=== PATIENT | female | born 1990 | race Two or more races ===

== ENCOUNTER 2019-04-05 09:28 | Emergency (ER) | payer MEDICAID ==
[2019-04-05] MEDS ORDERED: Sodium Chloride 0.9% 1,000 ML IV STA (09:57)
[2019-04-05] MEDS ORDERED: Metoclopramide 10 MG/2 ML SDV IVPUSH ONE (09:57)
[2019-04-05] MEDS ORDERED: Sodium Chloride 0.9% 10 ML Syringe FLUSH PRN (09:57)
[2019-04-05] MEDS ORDERED: diphenhydrAMINE 50 MG/ML SDV IVPUSH ONE (09:59)
[2019-04-05] MEDS ORDERED: Ketorolac 30 MG/ML SDV IVPUSH ONE (09:59)
[2019-04-05] MEDS ORDERED: FLU Vacc QS2019-20(6MOS+)/PF 60 MCG/0.5 ML SYRINGE IM ONE (10:00)
--- NOTE | 2019-04-05 10:32 | EDM.PDOC ---
ED HPI GENERAL MEDICAL PROBLEM - General Chief Complaint: Abdominal Pain Stated Complaint: VOMITNG/HEADACHE...HAS TYPE 1 DIABETES Time Seen by Provider: 04/05/19 09:43 Source of Information: Reports: Patient, Family History Limitations: Reports: No Limitations - History of Present Illness INITIAL COMMENTS - FREE TEXT/NARRATIVE: The patient presents with a headache, abdominal pain, nausea and vomiting. This started about 3 months ago. [place] doctor. She said he did a lower scan of her abdomen but not the upper part. She says every day she will wake up with a headache on both sides of her head. She also has abdominal pain daily. It is in the upper abdomen. She has nausea and vomiting daily and it may be once or a few times. She has not noticed any foods that may be causing problems. She is type I diabetic and her blood sugars have not been over 300. She has never had numbness or weakness with the headaches. She has no fever, chills, cough, congestion or runny nose. She has no ear pain or sore throat. She has no chest pain or shortness of breath. She does not think she is . She had a baby last year. She has lost about 20 pounds over the past few months. Onset: Gradual Duration: Week(s): Location: Reports: Head, Abdomen Quality: Reports: Sharp Severity: Moderate Improves with: Reports: None Worsens with: Reports: None Associated Symptoms: Reports: Headaches, Nausea/Vomiting. Denies: Chest Pain, Cough, Fever/Chills, Shortness of Breath Headache Pain Score (Numeric/FACES): 8 - Related Data Allergies Allergy/AdvReac Type Severity Reaction Status Date / Time No Known Allergies Allergy Verified 04/05/19 09:40 Home Meds: Home Meds Hydrocodone/Acetaminophen [Hydrocodon-Acetaminophen 5-325] 1 - 2 each PO Q6HR PRN #10 tablet 04/05/19 [Rx] Insulin Glargine,Hum.Rec.Anlog [Basaglar Kwikpen U-100] 27 units SQ BEDTIME [History] Insulin Lispro [Humalog] See Protocol SQ TID 04/05/19 [History] Metoclopramide HCl [Reglan] 10 mg PO Q6H PRN #30 tablet 04/05/19 [Rx] Sertraline [Zoloft] 100 mg PO DAILY 04/05/19 [History] Past Medical History Neurological History: Reports: Headaches, Chronic Endocrine/Metabolic History: Reports: Diabetes, Type I Do You Give Correction Boluses or Sliding Scale: Yes Patient/Family Able to Supply Written Copy of Sliding Scale: No Social & Family History - Family History Family Medical History: Noncontributory - Tobacco Use Smoking Status *Q: Never Smoker Second Hand Smoke Exposure: No ED ROS GENERAL - Review of Systems Review Of Systems: See Below Constitutional: Reports: No Symptoms HEENT: Reports: No Symptoms Respiratory: Reports: No Symptoms Cardiovascular: Reports: No Symptoms Endocrine: Reports: No Symptoms GI/Abdominal: Reports: Abdominal Pain, Nausea, Vomiting. Denies: Diarrhea : Reports: No Symptoms Musculoskeletal: Reports: No Symptoms Skin: Reports: No Symptoms Neurological: Reports: Headache. Denies: Numbness, Weakness ED EXAM, GI/ABD - Physical Exam Exam: See Below Exam Limited By: No Limitations General Appearance: Alert, No Apparent Distress Ears: Normal External Exam Nose: Normal Inspection Head: Atraumatic, Normocephalic Neck: Normal Inspection, Supple, Non-Tender Respiratory/Chest: No Respiratory Distress, Lungs Clear, Normal Breath Sounds Cardiovascular: Regular Rate, Rhythm, No Edema, No Murmur GI/Abdominal Exam: Soft, No Organomegaly, No Mass, Tender (Moderate generalized abdominal pain) Back Exam: Normal Inspection Extremities: Normal Inspection Course - Vital Signs Last Recorded V/S: Last Vital Signs Temp 97.1 F 04/05/19 09:40 Pulse 111 H 04/05/19 09:40 Resp 16 04/05/19 09:40 BP 119/91 H 04/05/19 09:40 Pulse Ox 99 04/05/19 09:40 - Orders/Labs/Meds Orders: Active Orders 24 hr Category Date Time Status Influenza Vaccine Charge [RC] .DISCHARGE Care 04/05/19 09:54 Active Peripheral IV Care [RC] . DIRECTED Care 04/05/19 09:57 Active UA W/MICROSCOPIC [URIN] Stat Lab 04/05/19 13:14 Results Sodium Chloride 0.9% [Saline Flush] Med 04/05/19 09:57 Active 10 ml FLUSH ASDIRECTED PRN ED Antiemetic Medication Reflex [OM.PC] Stat Oth 04/05/19 09:57 Ordered Peripheral IV Insertion Adult [OM.PC] Stat Ot 04/05/19 09:57 Ordered Medication Orders Sodium Chloride (Saline Flush) 10 ml FLUSH ASDIRECTED PRN PRN Reason: Keep Vein Open Last Admin: 04/05/19 10:16 Dose: 10 ml Labs: Laboratory Tests 04/05/19 04/05/19 04/05/19 Range/Units 10:00 10:00 10:00 WBC 3.36 L (3.98-10.04) K/mm3 RBC 4.21 (3.98-5.22) M/mm3 Hgb 13.9 (11.2-15.7) gm/dl Hct 41.0 (34.1-44.9) % MCV 97.4 H (79.4-94.8) fl MCH 33.0 H (25.6-32.2) pg MCHC 33.9 (32.2-35.5) g/dl RDW Std Deviation 50.1 H (36.4-46.3) fL Plt Count 275 (182-369) K/mm3 MPV 10.3 (9.4-12.3) fl Neut % (Auto) 51.8 (34.0-71.1) % Lymph % (Auto) 32.7 (19.3-51.7) % Davie % (Auto) 11.9 (4.7-12.5) % Eos % (Auto) 1.5 (0.7-5.8) Baso % (Auto) 1.8 H (0.1-1.2) % Neut # (Auto) 1.74 (1.56-6.13) K/mm3 Lymph # (Auto) 1.10 L (1.18-3.74) K/mm3 Davie # (Auto) 0.40 H (0.24-0.36) K/mm3 Eos # (Auto) 0.05 (0.04-0.36) K/mm3 Baso # (Auto) 0.06 (0.01-0.08) K/mm3 Puncture Site ABG pH (7.35-7.45) ABG pCO2 (35.0-45.0) mmHg ABG pO2 (80.0-100.0) mmHg ABG HCO3 (22.0-26.0) meq/L ABG O2 Saturation (96.0-97.0) % ABG Base Excess (-2-2.0) Graham Test O2 Delivery Device FiO2 (21.00-100.00) % Sodium 144 (136-145) mEq/L Potassium 3.2 L (3.5-5.1) mEq/L Chloride 106 (98-107) mEq/L Carbon Dioxide 26 (21-32) mEq/L Anion Gap 15.2 H (5-15) BUN 11 (7-18) mg/dL Creatinine 1.1 H (0.55-1.02) mg/dL Est Cr Clr Drug Dosing 55.67 mL/min Estimated GFR (MDRD) > 60 (>60) mL/min BUN/Creatinine Ratio 10.0 L (14-18) Glucose 72 L (74-106) mg/dL Serum Osmolality (280-300) mosm/kg Calcium 9.0 (8.5-10.1) mg/dL Total Bilirubin 0.3 (0.2-1.0) mg/dL AST 60 H (15-37) U/L ALT 41 (14-59) U/L Alkaline Phosphatase 136 H (46-116) U/L Total Protein 6.2 L (6.4-8.2) g/dl Albumin 3.0 L (3.4-5.0) g/dl Globulin 3.2 gm/dL Albumin/Globulin Ratio 0.9 L (1-2) Lipase 49 L (73-393) U/L HCG, Qual Negative (NEGATIVE) Urine Color (Yellow) Urine Appearance (Clear) Urine pH (5.0-8.0) Ur Specific [place] (1.005-1.030) Urine Protein (Negative) Urine Glucose (UA) (Negative) Urine Ketones (Negative) Urine Occult Blood (Negative) Urine Nitrite (Negative) Urine Bilirubin (Negative) Urine Urobilinogen (0.2-1.0) Ur Leukocyte Esterase (Negative) Ketones (0.0-0.3) mM 04/05/19 04/05/19 04/05/19 Range/Units 10:00 10:00 10:26 WBC (3.98-10.04) K/mm3 RBC (3.98-5.22) M/mm3 Hgb (11.2-15.7) gm/dl Hct (34.1-44.9) % MCV (79.4-94.8) fl MCH (25.6-32.2) pg MCHC (32.2-35.5) g/dl RDW Std Deviation (36.4-46.3) fL Plt Count (182-369) K/mm3 MPV (9.4-12.3) fl Neut % (Auto) (34.0-71.1) % Lymph % (Auto) (19.3-51.7) % Davie % (Auto) (4.7-12.5) % Eos % (Auto) (0.7-5.8) Baso % (Auto) (0.1-1.2) % Neut # (Auto) (1.56-6.13) K/mm3 Lymph # (Auto) (1.18-3.74) K/mm3 Davie # (Auto) (0.24-0.36) K/mm3 Eos # (Auto) (0.04-0.36) K/mm3 Baso # (Auto) (0.01-0.08) K/mm3 Puncture Site Lt radial ABG pH 7.41 (7.35-7.45) ABG pCO2 39.5 (35.0-45.0) mmHg ABG pO2 88.0 (80.0-100.0) mmHg ABG HCO3 24.3 (22.0-26.0) meq/L ABG O2 Saturation 97.7 H (96.0-97.0) % ABG Base Excess 0.2 (-2-2.0) Graham Test Positive O2 Delivery Device Room air FiO2 0.00 L (21.00-100.00) % Sodium (136-145) mEq/L Potassium (3.5-5.1) mEq/L Chloride (98-107) mEq/L Carbon Dioxide (21-32) mEq/L Anion Gap (5-15) BUN (7-18) mg/dL Creatinine (0.55-1.02) mg/dL Est Cr Clr Drug Dosing mL/min Estimated GFR (MDRD) (>60) mL/min BUN/Creatinine Ratio (14-18) Glucose (74-106) mg/dL Serum Osmolality 298 (280-300) mosm/kg Calcium (8.5-10.1) mg/dL Total Bilirubin (0.2-1.0) mg/dL AST (15-37) U/L ALT (14-59) U/L Alkaline Phosphatase (46-116) U/L Total Protein (6.4-8.2) g/dl Albumin (3.4-5.0) g/dl Globulin gm/dL Albumin/Globulin Ratio (1-2) Lipase (73-393) U/L HCG, Qual (NEGATIVE) Urine Color (Yellow) Urine Appearance (Clear) Urine pH (5.0-8.0) Ur Specific [place] (1.005-1.030) Urine Protein (Negative) Urine Glucose (UA) (Negative) Urine Ketones (Negative) Urine Occult Blood (Negative) Urine Nitrite (Negative) Urine Bilirubin (Negative) Urine Urobilinogen (0.2-1.0) Ur Leukocyte Esterase (Negative) Ketones 1.1 (0.0-0.3) mM 04/05/ Range/Units 13:14 WBC (3.98-10.04) K/mm3 RBC (3.98-5.22) M/mm3 Hgb (11.2-15.7) gm/dl Hct (34.1-44.9) % MCV (79.4-94.8) fl MCH (25.6-32.2) pg MCHC (32.2-35.5) g/dl RDW Std Deviation (36.4-46.3) fL Plt Count (182-369) K/mm3 MPV (9.4-12.3) fl Neut % (Auto) (34.0-71.1) % Lymph % (Auto) (19.3-51.7) % Davie % (Auto) (4.7-12.5) % Eos % (Auto) (0.7-5.8) Baso % (Auto) (0.1-1.2) % Neut # (Auto) (1.56-6.13) K/mm3 Lymph # (Auto) (1.18-3.74) K/mm3 Davie # (Auto) (0.24-0.36) K/mm3 Eos # (Auto) (0.04-0.36) K/mm3 Baso # (Auto) (0.01-0.08) K/mm3 Puncture Site ABG pH (7.35-7.45) ABG pCO2 (35.0-45.0) mmHg ABG pO2 (80.0-100.0) mmHg ABG HCO3 (22.0-26.0) meq/L ABG O2 Saturation (96.0-97.0) % ABG Base Excess (-2-2.0) Grahma Test O2 Delivery Device FiO2 (21.00-100.00) % Sodium (136-145) mEq/L Potassium (3.5-5.1) mEq/L Chloride (98-107) mEq/L Carbon Dioxide (21-32) mEq/L Anion Gap (5-15) BUN (7-18) mg/dL Creatinine (0.55-1.02) mg/dL Est Cr Clr Drug Dosing mL/min Estimated GFR (MDRD) (>60) mL/min BUN/Creatinine Ratio (14-18) Glucose (74-106) mg/dL Serum Osmolality (280-300) mosm/kg Calcium (8.5-10.1) mg/dL Total Bilirubin (0.2-1.0) mg/dL AST (15-37) U/L ALT (14-59) U/L Alkaline Phosphatase (46-116) U/L Total Protein (6.4-8.2) g/dl Albumin (3.4-5.0) g/dl Globulin gm/dL Albumin/Globulin Ratio (1-2) Lipase (73-393) U/L HCG, Qual (NEGATIVE) Urine Color Yellow (Yellow) Urine Appearance Cloudy H (Clear) Urine pH 6.5 (5.0-8.0) Ur Specific [place] 1.015 (1.005-1.030) Urine Protein 2+ H (Negative) Urine Glucose (UA) Negative (Negative) Urine Ketones 1+ H (Negative) Urine Occult Blood Negative (Negative) Urine Nitrite Negative (Negative) Urine Bilirubin 2+ H (Negative) Urine Urobilinogen 0.2 (0.2-1.0) Ur Leukocyte Esterase Negative (Negative) Ketones (0.0-0.3) mM Meds: Medications Generic Name Dose Route Start Last Admin Trade Name Freq PRN Reason Stop Dose Admin Sodium Chloride 10 ml 04/05/19 09:57 04/05/19 10:16 Saline Flush FLUSH 10 ml ASDIRECTED PRN Administration Keep Vein Open Discontinued Medications Generic Name Dose Route Start Last Admin Trade Name Gonzalo PRN Reason Stop Dose Admin Diatrizoate Meglum/Diatrizoate Sod 90 ml 04/05/19 11:50 Gastrografin 37% PO 04/05/19 11:51 ONETIME ONE Diphenhydramine HCl 50 mg 04/05/19 09:59 04/05/19 10:17 Benadryl IVPUSH 04/05/19 10:00 50 mg ONETIME ONE Administration Sodium Chloride 1,000 mls @ 1,000 mls/hr 04/05/19 09:57 04/05/19 10:13 Normal Saline IV 04/05/19 10:56 1,000 mls/hr .BOLUS STA Administration Influenza Virus Vaccine 1 each 04/05/19 09:54 Pharmacy To Dose - Influenza Vaccine IM 04/05/19 09:55 ONETIME ONE Influenza Virus Vaccine 60 mcg 04/05/19 10:00 Fluzone Quad [id number] Syringe IM 04/05/19 10:01 .ONCE ONE Iopamidol 100 ml 04/05/19 11:50 04/05/19 12:10 Isovue-300 (61%) IVPUSH 04/05/19 11:51 100 ml ONETIME ONE Administration Ketorolac Tromethamine 30 mg 04/05/19 09:59 04/05/19 10:21 Toradol IVPUSH 04/05/19 10:00 30 mg ONETIME ONE Administration Metoclopramide HCl 10 mg 04/05/19 09:57 04/05/19 10:14 Reglan IVPUSH 04/05/19 09:58 10 mg ONETIME ONE Administration Ondansetron HCl 4 mg 04/05/19 11:20 04/05/19 11:41 Zofran IVPUSH 04/05/19 11:21 4 mg ONETIME ONE Administration - Re-Assessments/Exams Free Text/Narrative Re-Assessment/Exam: 04/05/19 10:37 I ordered an IV NS 1L bolus, reglan 10mg IV, toradol 30mg IV, benadryl 50mg IV, labs, UA, CT of her head, abdomen and pelvis. 04/05/19 12:12 Her WBC was low at 3.36. Her pH was normal at 7.41. Her K was low at 3.2. Her anion gap was slightly elevated at 15.2. Her creatinine was elevated at 1.1. Her glucose was a little low at 72. Her serum osmolality is normal at 298. Her AST is elevated at 66. Her Alk Phos is elevated at 136. Her lipase is normal. Her HCG is negative. Her ketones were slightly elevated at 1.1. I am waiting for the scans now. Her headache is better. 04/05/19 13:[address] of her head looks good. The CT of her abdomen and pelvis shows nothing acute. The headache came back. I will give her some dilaudid before she goes. I am concerned this could be gastroperesis from the diabetes. She has tried some meds for this but she does not think it was reglan. I will try some reglan and I will have her follow up with Dr Burgess. Departure - Departure Time of Disposition: 13:35 Disposition: Home, Self-Care 01 Condition: Good Clinical Impression: Abdominal pain Qualifiers: Abdominal location: generalized Qualified Code(s): R10.84 - Generalized abdominal pain Headache Qualifiers: Headache type: unspecified Headache chronicity pattern: acute headache Intractability: not intractable Qualified Code(s): R51 - Headache - Discharge Information *PRESCRIPTION DRUG MONITORING PROGRAM REVIEWED*: No *COPY OF PRESCRIPTION DRUG MONITORING REPORT IN PATIENT [place]: No Prescriptions: Hydrocodone/Acetaminophen [Hydrocodon-Acetaminophen 5-325] 1 - 2 each PO Q6HR PRN #10 tablet PRN Reason: Pain Metoclopramide HCl [Reglan] 10 mg PO Q6H PRN #30 tablet PRN Reason: Nausea Referrals: PCP,None [Primary Care Provider] - Alli Burgess MD [Physician] - 1 Week Forms: ED Department Discharge Additional Instructions: Drink plenty of fluids. Take reglan every 6 hours as needed for the pain and nausea. Take the hydrocodone as needed for pain. Please return if you are worse. Sepsis Event Note - Evaluation Sepsis Screening Result: No Definite Risk - Focused Exam Vital Signs: Vital Signs Temp Pulse Resp BP Pulse Ox 04/05/19 09:40 97.1 F 111 H 16 119/91 H 99 Date Exam was Performed: 04/05/19 Time Exam was Performed: 13:32 - My Orders Last 24 Hours: My Active Orders 04/05/19 09:54 Influenza Vaccine Charge [RC] .DISCHARGE 04/05/19 09:57 Peripheral IV Care [RC] . DIRECTED Sodium Chloride 0.9% [Saline Flush] 10 ml FLUSH ASDIRECTED PRN ED Antiemetic Medication Reflex [OM.PC] Stat Peripheral IV Insertion Adult [OM.PC] Stat 04/05/19 13:14 UA W/MICROSCOPIC [URIN] Stat - Assessment/Plan Last 24 Hours: My Active Orders 04/05/19 09:54 Influenza Vaccine Charge [RC] .DISCHARGE 04/05/19 09:57 Peripheral IV Care [RC] . DIRECTED Sodium Chloride 0.9% [Saline Flush] 10 ml FLUSH ASDIRECTED PRN ED Antiemetic Medication Reflex [OM.PC] Stat Peripheral IV Insertion Adult [OM.PC] Stat 04/05/19 13:14 UA W/MICROSCOPIC [URIN] Stat
[2019-04-05] MEDS ORDERED: Ondansetron 4 MG/2 ML SDV IVPUSH ONE (11:20)
[2019-04-05] MEDS ORDERED: Iopamidol 612 MG/ML 100 ML Bottle IVPUSH ONE (11:50)
[2019-04-05] MEDS ORDERED: Diatrizoate Meglumine/Diatrizoate Sodium 37% 120 ML Bottle PO ONE (11:50)
--- NOTE | 2019-04-05 12:57 | CT ---
Head CT Technique: Multiple axial sections through the brain were obtained. Intravenous contrast was not utilized. Comparison: No prior intracranial imaging is available. Findings: Ventricles along with basal cisterns and sulci over the convexities appear within normal limits for the patient's age. No abnormal parenchymal densities are seen. No evidence of intracranial hemorrhage. No midline shift or mass effect is identified. Bone window settings were reviewed. No acute calvarial abnormality is appreciated. Mastoid sinuses are clear. Visualized paranasal sinuses show nothing acute. Impression: 1. Nothing acute is appreciated on noncontrast head CT exam. Diagnostic code #1 This report was dictated in [place] Standard Time
--- NOTE | 2019-04-05 13:01 | CT ---
CT abdomen and pelvis Technique: Multiple axial sections were obtained from above the dome of the diaphragm inferiorly through the pubic symphysis. Intravenous contrast was utilized. Oral contrast was given. Incomplete bowel opacification is noted. Comparison: No prior abdominal imaging is available. Findings: Multiple small nodules are seen within the right lung base. These measure less than 5 mm. These nodules show no calcifications. Liver shows no focal parenchymal abnormality. Gallbladder contains no calcified gallstones. Spleen appears within normal limits. Adrenal glands show no discrete nodule. Kidneys show symmetric contrast enhancement without hydronephrosis or mass. Pancreas is within normal limits. Aorta shows no aneurysm. No retroperitoneal adenopathy or mesenteric abnormalities are seen. No pelvic mass or adenopathy is seen. No free fluid or inflammatory change is identified. Mild increased stool is noted throughout the colon. Appendix is not visualized with certainty. Delayed images shows a small amount of contrast within the bladder. Bone window settings were reviewed which appear within normal limits for the patient's age. Impression: 1. Mild increased stool throughout the colon. 2. No additional abnormality is appreciated on CT study of the abdomen and pelvis. No acute abnormality is appreciated. Diagnostic code #2 This report was dictated in [place] Standard Time
[2019-04-05] MEDS ORDERED: HYDROmorphone 0.5 MG/0.5 ML Syringe IVPUSH ONE (13:32)
== END 2019-04-05 14:04 | disposition home or self-care (01) ==
LOC: JD.ED 09:28
DX: R10.84 Generalized abdominal pain (principal); R51 Headache; E10.9 Type 1 diabetes mellitus without complications; Z79.4 Long term (current) use of insulin; Z23 Encounter for immunization
CPT/HCPCS: 36415; 36600; 70450; 74177; 80053; 81001; 82009; 82803; 83690; 83930; 84703; 85025; 90471; 90686; 96361; 96374; 96375; 99284; J1170; J1200; J1885; J2405; J2765; J7030; Q9963; Q9967; G0008

== ENCOUNTER 2019-08-04 11:38 | Inpatient (IN) | payer BC, MEDICAID ==
[2019-08-04] MEDS ORDERED: Sodium Chloride 0.9% 2,000 ML IV STA (12:00)
[2019-08-04] MEDS ORDERED: Ondansetron 4 MG/2 ML SDV IVPUSH ONE (12:00)
[2019-08-04] MEDS: Sodium Chloride 0.9% 10 ML Syringe FLUSH PRN ×2 (12:18→12:19)
--- NOTE | 2019-08-04 12:49 | EDM.PDOC ---
ED HPI GENERAL MEDICAL PROBLEM - General Chief Complaint: Diabetic Complaint Stated Complaint: GLUCOS OVER 600 AND NAUSEA Time Seen by Provider: 08/04/19 11:52 Source of Information: Reports: Patient, Family History Limitations: Reports: Altered Mental Status - History of Present Illness INITIAL COMMENTS - FREE TEXT/NARRATIVE: The patient presents with hyperglycemia and confusion. She was brought in by her . He says for the past month she had some abdominal pain, nausea and vomiting. Her sugars have been running a little high the past few days. She was nauseated today and did not eat much and then she was confused and he checked her sugar and it was over 600. He gave her 12 units of regular insulin. She is confused and yelling. She looks very dry with dry mucous membranes. She is also breathing hard and fast. Onset: Gradual Duration: Day(s): Location: Reports: Abdomen Quality: Reports: Ache Severity: Moderate Improves with: Reports: None Worsens with: Reports: None Associated Symptoms: Reports: Nausea/Vomiting, Shortness of Breath. Denies: Chest Pain, Cough, Fever/Chills, Headaches - Related Data Allergies Allergy/AdvReac Type Severity Reaction Status Date / Time No Known Allergies Allergy Verified 08/04/19 12:17 Home Meds: Home Meds Hydrocodone/Acetaminophen [Hydrocodon-Acetaminophen 5-325] 1 - 2 each PO Q6HR PRN #10 tablet 04/05/19 [Rx] Insulin Glargine,Hum.Rec.Anlog [Basaglar Kwikpen U-100] 27 units SQ BEDTIME [History] Insulin Lispro [Humalog] See Protocol SQ TID 04/05/19 [History] Metoclopramide HCl [Reglan] 10 mg PO Q6H PRN #30 tablet 04/05/19 [Rx] Sertraline [Zoloft] 100 mg PO DAILY 04/05/19 [History] Past Medical History Neurological History: Reports: Headaches, Chronic Endocrine/Metabolic History: Reports: Diabetes, Type I Social & Family History - Family History Family Medical History: Noncontributory ED ROS GENERAL - Review of Systems Review Of Systems: See Below Constitutional: Reports: No Symptoms HEENT: Reports: No Symptoms Respiratory: Reports: No Symptoms Cardiovascular: Reports: No Symptoms Endocrine: Reports: No Symptoms GI/Abdominal: Reports: No Symptoms : Reports: No Symptoms Musculoskeletal: Reports: No Symptoms Skin: Reports: No Symptoms ED EXAM GENERAL NO PERIP PULSE - Physical Exam Exam: See Below Exam Limited By: No Limitations General Appearance: No Apparent Distress, Lethargic Ears: Normal External Exam Nose: Normal Inspection Throat/Mouth: Other (Dry mucus membranes) Head: Atraumatic, Normocephalic Neck: Normal Inspection, Supple, Non-Tender Respiratory/Chest: No Respiratory Distress, Lungs Clear, Normal Breath Sounds Cardiovascular: No Edema, No Murmur, Tachycardia GI/Abdominal: Soft, Non-Tender, No Organomegaly, No Mass Back Exam: Normal Inspection Extremities: Normal Inspection Course - Vital Signs Last Recorded V/S: Last Vital Signs Temp 97.0 F 08/04/19 12:47 Pulse 144 H 08/04/19 12:47 Resp 24 H 08/04/19 12:47 BP 130/99 H 08/04/19 12:47 Pulse Ox 100 08/04/19 12:47 - Orders/Labs/Meds Orders: Active Orders 24 hr Category Date Time Status Insert Barraza Catheter [Insert Urinary Catheter] [OM.PC] Care 08/04/19 12:55 Ordered Q24H Peripheral IV Care [RC] . DIRECTED Care 08/04/19 12:00 Active Urinary Catheter Assessment [RC] ASDIRECTED Care 08/04/19 12:55 Active Insulin Regular, Human [HumuLIN R] 100 unit Med 08/04/19 14:15 Active Sodium Chloride 0.9% [Normal Saline] 99 ml IV TITRATE Sodium Chloride 0.9% [Saline Flush] Med 08/04/19 12:00 Active 10 ml FLUSH ASDIRECTED PRN ED Antiemetic Medication Reflex [OM.PC] Stat Oth 08/04/19 12:01 Ordered Peripheral IV Insertion Adult [OM.PC] Stat Oth 08/04/19 12:00 Ordered Medication Orders Insulin Human Regular 100 unit (/ Sodium Chloride) 100 mls @ 4.08 mls/hr IV TITRATE STEPHANIE; Protocol Sodium Chloride (Saline Flush) 10 ml FLUSH ASDIRECTED PRN PRN Reason: Keep Vein Open Last Admin: 08/04/19 12:19 Dose: 10 ml Admin: 08/04/19 12:18 Dose: 10 ml Labs: Laboratory Tests 04/21/20 04/21/20 04/21/20 Range/Units 12:04 12:10 12:10 WBC 8.81 (3.98-10.04) K/mm3 RBC 3.81 L (3.98-5.22) M/mm3 Hgb 12.7 (11.2-15.7) gm/dl Hct 40.7 (34.1-44.9) % MCV 106.8 H D (79.4-94.8) fl MCH 33.3 H (25.6-32.2) pg MCHC 31.2 L (32.2-35.5) g/dl RDW Std Deviation 49.3 H (36.4-46.3) fL Plt Count 447 H D (182-369) K/mm3 MPV 10.9 (9.4-12.3) fl Neut % (Auto) 73.4 H (34.0-71.1) % Lymph % (Auto) 21.2 (19.3-51.7) % [place] % (Auto) 4.3 L (4.7-12.5) % Eos % (Auto) 0.1 L (0.7-5.8) Baso % (Auto) 0.3 (0.1-1.2) % Neut # (Auto) 6.46 H (1.56-6.13) K/mm3 Lymph # (Auto) 1.87 (1.18-3.74) K/mm3 [place] # (Auto) 0.38 H (0.24-0.36) K/mm3 Eos # (Auto) 0.01 L (0.04-0.36) K/mm3 Baso # (Auto) 0.03 (0.01-0.08) K/mm3 Manual Slide Review Abnormal smear Puncture Site Rt brachial ABG pH 7.00 L* (7.35-7.45) ABG pCO2 9.3 L* (35.0-45.0) mmHg ABG pO2 125.0 H (80.0-100.0) mmHg ABG HCO3 2.2 L (22.0-26.0) meq/L ABG O2 Saturation 97.4 H (96.0-97.0) % ABG Base Excess -29.1 L (-2-2.0) Graham Test Positive O2 Delivery Device Room air FiO2 0.00 L (21.00-100.00) % Sodium 143 (136-145) mEq/L Potassium 4.5 (3.5-5.1) mEq/L Chloride 98 (98-107) mEq/L Carbon Dioxide < 5 L* D (21-32) mEq/L Anion Gap TNP BUN 24 H (7-18) mg/dL Creatinine 1.4 H (0.55-1.02) mg/dL Est Cr Clr Drug Dosing 38.90 mL/min Estimated GFR (MDRD) 45 (>60) mL/min BUN/Creatinine Ratio 17.1 (14-18) Glucose 870 H* (74-106) mg/dL Serum Osmolality 370 H (280-300) mosm/kg Calcium 9.2 (8.5-10.1) mg/dL Magnesium 2.3 (1.8-2.4) mg/dl Total Bilirubin 0.8 (0.2-1.0) mg/dL AST 250 H (15-37) U/L ALT 190 H (14-59) U/L Alkaline Phosphatase 286 H (46-116) U/L Total Protein 6.7 (6.4-8.2) g/dl Albumin 3.5 (3.4-5.0) g/dl Globulin 3.2 gm/dL Albumin/Globulin Ratio 1.1 (1-2) Lipase 52 L (73-393) U/L HCG, Qual (NEGATIVE) Urine Color (Yellow) Urine Appearance (Clear) Urine pH (5.0-8.0) Ur Specific [place] (1.005-1.030) Urine Protein (Negative) Urine Glucose (UA) (Negative) Urine Ketones (Negative) Urine Occult Blood (Negative) Urine Nitrite (Negative) Urine Bilirubin (Negative) Urine Urobilinogen (0.2-1.0) Ur Leukocyte Esterase (Negative) Urine RBC (0-5) /hpf Urine WBC (0-5) /hpf Ur Squamous Epith Cells (0-5) /hpf Urine Bacteria (FEW) /hpf Urine Mucus (FEW) /hpf Urine Opiates Screen (XFEYVH=506) Ur Buprenorphine Scrn (CUTOFF=10) Ur Oxycodone Screen (ZRH9YR=583) Urine Methadone Screen (VPBIOS=829) Ur Propoxyphene Screen (PVRURE=646) Ur Barbiturates Screen (ZAIPCZ=455) Ur Tricyclics Screen (MIUITD=800) Ur Phencyclidine Scrn (CUTOFF=25) Ur Amphetamine Screen (LPGOKH=365) U Methamphetamines Scrn (BOHSQB=738) U Benzodiazepines Scrn (LREPDU=844) U Cocaine Metab Screen (XZXPOI=498) U Marijuana (THC) Screen (CUTOFF=50) Ketones (0.0-0.3) mM 08/04/19 08/04/19 08/04/19 Range/Units 12:10 12:10 13:00 WBC (3.98-10.04) K/mm3 RBC (3.98-5.22) M/mm3 Hgb (11.2-15.7) gm/dl Hct (34.1-44.9) % MCV (79.4-94.8) fl MCH (25.6-32.2) pg MCHC (32.2-35.5) g/dl RDW Std Deviation (36.4-46.3) fL Plt Count (182-369) K/mm3 MPV (9.4-12.3) fl Neut % (Auto) (34.0-71.1) % Lymph % (Auto) (19.3-51.7) % [place] % (Auto) (4.7-12.5) % Eos % (Auto) (0.7-5.8) Baso % (Auto) (0.1-1.2) % Neut # (Auto) (1.56-6.13) K/mm3 Lymph # (Auto) (1.18-3.74) K/mm3 [place] # (Auto) (0.24-0.36) K/mm3 Eos # (Auto) (0.04-0.36) K/mm3 Baso # (Auto) (0.01-0.08) K/mm3 Manual Slide Review Puncture Site ABG pH (7.35-7.45) ABG pCO2 (35.0-45.0) mmHg ABG pO2 (80.0-100.0) mmHg ABG HCO3 (22.0-26.0) meq/L ABG O2 Saturation (96.0-97.0) % ABG Base Excess (-2-2.0) Graham Test O2 Delivery Device FiO2 (21.00-100.00) % Sodium (136-145) mEq/L Potassium (3.5-5.1) mEq/L Chloride (98-107) mEq/L Carbon Dioxide (21-32) mEq/L Anion Gap BUN (7-18) mg/dL Creatinine (0.55-1.02) mg/dL Est Cr Clr Drug Dosing mL/min Estimated GFR (MDRD) (>60) mL/min BUN/Creatinine Ratio (14-18) Glucose (74-106) mg/dL Serum Osmolality (280-300) mosm/kg Calcium (8.5-10.1) mg/dL Magnesium (1.8-2.4) mg/dl Total Bilirubin (0.2-1.0) mg/dL AST (15-37) U/L ALT (14-59) U/L Alkaline Phosphatase (46-116) U/L Total Protein (6.4-8.2) g/dl Albumin (3.4-5.0) g/dl Globulin gm/dL Albumin/Globulin Ratio (1-2) Lipase (73-393) U/L HCG, Qual Negative (NEGATIVE) Urine Color Yellow (Yellow) Urine Appearance Clear (Clear) Urine pH 5.0 (5.0-8.0) Ur Specific [place] 1.020 (1.005-1.030) Urine Protein Trace H (Negative) Urine Glucose (UA) 2+ H (Negative) Urine Ketones 4+ H (Negative) Urine Occult Blood 1+ H (Negative) Urine Nitrite Negative (Negative) Urine Bilirubin Negative (Negative) Urine Urobilinogen 0.2 (0.2-1.0) Ur Leukocyte Esterase Negative (Negative) Urine RBC 0-5 (0-5) /hpf Urine WBC Not seen (0-5) /hpf Ur Squamous Epith Cells Not seen (0-5) /hpf Urine Bacteria Not seen (FEW) /hpf Urine Mucus Not seen (FEW) /hpf Urine Opiates Screen (FVYFPS=328) Ur Buprenorphine Scrn (CUTOFF=10) Ur Oxycodone Screen (ZFU5LR=007) Urine Methadone Screen (ABEODN=111) Ur Propoxyphene Screen (OZTVUP=920) Ur Barbiturates Screen (DVUJQS=461) Ur Tricyclics Screen (ZCFWBS=945) Ur Phencyclidine Scrn (CUTOFF=25) Ur Amphetamine Screen (TAMCHH=770) U Methamphetamines Scrn (DZMPEC=564) U Benzodiazepines Scrn (WXOYPE=321) U Cocaine Metab Screen (JEATWR=685) U Marijuana (THC) Screen (CUTOFF=50) Ketones 17.0 (0.0-0.3) mM 08/04/19 Range/Units 13:00 WBC (3.98-10.04) K/mm3 RBC (3.98-5.22) M/mm3 Hgb (11.2-15.7) gm/dl Hct (34.1-44.9) % MCV (79.4-94.8) fl MCH (25.6-32.2) pg MCHC (32.2-35.5) g/dl RDW Std Deviation (36.4-46.3) fL Plt Count (182-369) K/mm3 MPV (9.4-12.3) fl Neut % (Auto) (34.0-71.1) % Lymph % (Auto) (19.3-51.7) % [place] % (Auto) (4.7-12.5) % Eos % (Auto) (0.7-5.8) Baso % (Auto) (0.1-1.2) % Neut # (Auto) (1.56-6.13) K/mm3 Lymph # (Auto) (1.18-3.74) K/mm3 [place] # (Auto) (0.24-0.36) K/mm3 Eos # (Auto) (0.04-0.36) K/mm3 Baso # (Auto) (0.01-0.08) K/mm3 Manual Slide Review Puncture Site ABG pH (7.35-7.45) ABG pCO2 (35.0-45.0) mmHg ABG pO2 (80.0-100.0) mmHg ABG HCO3 (22.0-26.0) meq/L ABG O2 Saturation (96.0-97.0) % ABG Base Excess (-2-2.0) Graham Test O2 Delivery Device FiO2 (21.00-100.00) % Sodium (136-145) mEq/L Potassium (3.5-5.1) mEq/L Chloride (98-107) mEq/L Carbon Dioxide (21-32) mEq/L Anion Gap BUN (7-18) mg/dL Creatinine (0.55-1.02) mg/dL Est Cr Clr Drug Dosing mL/min Estimated GFR (MDRD) (>60) mL/min BUN/Creatinine Ratio (14-18) Glucose (74-106) mg/dL Serum Osmolality (280-300) mosm/kg Calcium (8.5-10.1) mg/dL Magnesium (1.8-2.4) mg/dl Total Bilirubin (0.2-1.0) mg/dL AST (15-37) U/L ALT (14-59) U/L Alkaline Phosphatase (46-116) U/L Total Protein (6.4-8.2) g/dl Albumin (3.4-5.0) g/dl Globulin gm/dL Albumin/Globulin Ratio (1-2) Lipase (73-393) U/L HCG, Qual (NEGATIVE) Urine Color (Yellow) Urine Appearance (Clear) Urine pH (5.0-8.0) Ur Specific [place] (1.005-1.030) Urine Protein (Negative) Urine Glucose (UA) (Negative) Urine Ketones (Negative) Urine Occult Blood (Negative) Urine Nitrite (Negative) Urine Bilirubin (Negative) Urine Urobilinogen (0.2-1.0) Ur Leukocyte Esterase (Negative) Urine RBC (0-5) /hpf Urine WBC (0-5) /hpf Ur Squamous Epith Cells (0-5) /hpf Urine Bacteria (FEW) /hpf Urine Mucus (FEW) /hpf Urine Opiates Screen Negative (YBRAHP=665) Ur Buprenorphine Scrn Negative (CUTOFF=10) Ur Oxycodone Screen Negative (HXS4CW=851) Urine Methadone Screen Negative (BSEORY=003) Ur Propoxyphene Screen Negative (VPYVJV=739) Ur Barbiturates Screen Negative (XFAVEI=032) Ur Tricyclics Screen Negative (OBWIKT=626) Ur Phencyclidine Scrn Negative (CUTOFF=25) Ur Amphetamine Screen Negative (NNHOBU=308) U Methamphetamines Scrn Negative (TBBMVS=200) U Benzodiazepines Scrn Negative (DAUCDZ=335) U Cocaine Metab Screen Negative (WFLNUL=606) U Marijuana (THC) Screen Negative (CUTOFF=50) Ketones (0.0-0.3) mM Meds: Medications Generic Name Dose Route Start Last Admin Trade Name Freq PRN Reason Stop Dose Admin Insulin Human Regular 100 unit 100 mls @ 4.08 mls/hr 08/04/19 14:15 / Sodium Chloride IV TITRATE STEPHANIE Protocol 0.1 UNITS/KG/HR Sodium Chloride 10 ml 08/04/19 12:00 08/04/19 12:19 Saline Flush FLUSH 10 ml ASDIRECTED PRN Administration Keep Vein Open Discontinued Medications Generic Name Dose Route Start Last Admin Trade Name Gonzalo PRN Reason Stop Dose Admin Sodium Chloride 2,000 mls @ 1,000 mls/hr 08/04/19 12:00 08/04/19 12:15 Normal Saline IV 08/04/19 13:59 1,000 mls/hr .BOLUS STA Administration Ondansetron HCl 4 mg 08/04/19 12:00 08/04/19 12:14 Zofran IVPUSH 08/04/19 12:01 4 mg ONETIME ONE Administration - Re-Assessments/Exams Free Text/Narrative Re-Assessment/Exam: 08/04/19 12:49 I ordered an IV NS 2L bolus, zofran 4mg IV, labs, and ABG. 08/04/19 14:11 Her WBC and Hgb are normal. Her platelets are 447. Her pH is 7. Her pCO2 is low at 9.3. Her CO2 is low at <5. Her K is normal at 4.5. Her creatinine is slightly elevated at 1.4. Her glucose was very high at 870. Her serum osmolality is high at 370. Her AST is elevated at 250. Her ALT is elevated at 190. Her alk phos is elevated at 286. Her lipase is low at 52. Her HCG is negative. Her UA has ketones and glucose. Her UDS was negative. Her Ketones were 17. She is in DKA. He second liter is almost in. I have ordered an insulin drip at 0.1units/kg/hr. I talked with Dr Meek and he agreed to the admission. Departure - Departure Time of Disposition: 14:15 Disposition: Admitted As Inpatient 68 Condition: Serious Clinical Impression: Confusion, Dehydration DKA (diabetic ketoacidoses) Qualifiers: Diabetes mellitus type: type 1 Diabetes mellitus complication detail: without coma Qualified Code(s): E10.10 - Type 1 diabetes mellitus with ketoacidosis without coma - Discharge Information Referrals: Tari Lazo PA-C [Primary Care Provider] - Forms: ED Department Discharge Sepsis Event Note - Evaluation Sepsis Screening Result: No Definite Risk - Focused Exam Vital Signs: Vital Signs Temp Pulse Resp BP Pulse Ox 08/04/19 12:47 97.0 F 144 H 24 H 130/99 H 100 08/04/19 11:59 97.9 F 144 H 24 H 136/91 H 99 Date Exam was Performed: 08/04/19 Time Exam was Performed: 14:11 - My Orders Last 24 Hours: My Active Orders 08/04/19 12:00 Peripheral IV Care [RC] . DIRECTED Sodium Chloride 0.9% [Saline Flush] 10 ml FLUSH ASDIRECTED PRN Peripheral IV Insertion Adult [OM.PC] Stat 08/04/19 12:01 ED Antiemetic Medication Reflex [OM.PC] Stat 08/04/19 12:55 Insert Barraza Catheter [Insert Urinary Catheter] [OM.PC] Q24H Urinary Catheter Assessment [RC] ASDIRECTED 08/04/19 14:15 Insulin Regular, Human [HumuLIN R] 100 unit Sodium Chloride 0.9% [Normal Saline] 99 ml IV TITRATE - Assessment/Plan Last 24 Hours: My Active Orders 08/04/19 12:00 Peripheral IV Care [RC] . DIRECTED Sodium Chloride 0.9% [Saline Flush] 10 ml FLUSH ASDIRECTED PRN Peripheral IV Insertion Adult [OM.PC] Stat 08/04/19 12:01 ED Antiemetic Medication Reflex [OM.PC] Stat 08/04/19 12:55 Insert Barraza Catheter [Insert Urinary Catheter] [OM.PC] Q24H Urinary Catheter Assessment [RC] ASDIRECTED 08/04/19 14:15 Insulin Regular, Human [HumuLIN R] 100 unit Sodium Chloride 0.9% [Normal Saline] 99 ml IV TITRATE
[2019-08-04] MEDS ORDERED: Lactated Ringers 1,000 ML IV ONE (14:53)
[2019-08-04] MEDS ORDERED: Sodium Chloride 0.45% with KCl 1,000 ML IV SCH (16:00)
--- NOTE | 2019-08-04 17:06 | PCM.HP.2 ---
H&P History of Present Illness - General Date of Service: 08/04/19 Admit Problem/Dx: Admission Diagnosis/Problem Admission Diagnosis/Problem Diabetic ketoacidosis - History of Present Illness Initial Comments - Free Text/Narative: 29-year-old female with history of type I diabetes diagnosed at 12 years of age presents to the emergency department by her because of confusion. Patient is a poor historian because of her DKA, therefore some of the history has been obtained through the emergency department notes and some through her recollection. Patient states that she does not remember getting here. She has had abdominal pain nausea and vomiting since the end of December when she went on a keto diet. She just returned from a 2-month vacation in [place] yesterday. She was hospitalized for 3 days in [place] due to nausea and vomiting. During her hospitalization her blood sugars were as high as 600. They decreased her Lantus insulin from 27 units to 17 units daily. They her sliding scale the same. She states that she does vomit daily since last December. It occurs approximately 1 to 2 hours after eating. Complains of epigastric pain that is mild to moderate in severity. She complains of a sense of fullness. She denies any hematochezia, melena, change in bowel habits, diarrhea, or constipation. She denies drinking or smoking. Her last bowel movement was in the emergency department. Patient moved from [place] to [place] in 2015. She moved to [place] last February. In the emergency department her blood sugars were found to be 870. She was given 2 L normal saline and started on an insulin drip and transferred to the ICU. - Related Data Allergies/Adverse Reactions: Allergies Allergy/AdvReac Type Severity Reaction Status Date / Time No Known Allergies Allergy Verified 08/04/19 12:17 Home Medications: Home Meds Insulin Glargine,Hum.Rec.Anlog [Basaglar Kwikpen U-100] 19 units SQ BEDTIME [History] Insulin Lispro [Humalog] See Protocol SQ TID 04/05/19 [History] Sertraline [Zoloft] 100 mg PO DAILY 04/05/19 [History] Past Medical History [employer] History: Reports: Other OB/BYN History: G1, P1. Neurological History: Reports: Headaches, Chronic Psychiatric History: Reports: Depression Endocrine/Metabolic History: Reports: Diabetes, Type I - Infectious Disease History Infectious Disease History: Reports: Chicken Pox - Past Surgical History Female Surgical History: Reports: Section Social & Family History - Family History Family Medical History: Noncontributory - Tobacco Use Smoking Status *Q: Never Smoker Second Hand Smoke Exposure: No - Caffeine Use Caffeine Use: Reports: Coffee - Recreational Drug Use Recreational Drug Use: No H&P Review of Systems - Review of Systems: Review Of Systems: Comprehensive ROS is negative, except as noted in HPI. Exam - Exam Exam: See Below - Vital Signs Vital Signs: Last Vital Signs Temp 97.3 F 08/04/19 15:00 Pulse 124 H 08/04/19 15:00 Resp 20 08/04/19 15:00 BP 110/74 08/04/19 15:00 Pulse Ox 100 08/04/19 15:00 Weight: 90 lb - Exam General: Lethargic HEENT: Conjunctiva Clear, Hearing Intact, Pupils Equal, Pupils Reactive. No: Mucosa Moist & [place] (Dry) Neck: Supple, Trachea Midline, 2 Lungs: Clear to Auscultation, Normal Respiratory Effort Cardiovascular: Regular Rhythm, Normal S1, Normal S2, Tachycardia. No: Systolic Murmur GI/Abdominal Exam: Normal Bowel Sounds, Soft, No Organomegaly, No Distention, No Abnormal Bruit, No Mass, Tender (Diffusely tender worse in the epigastrium) Extremities: Normal Inspection, Non-Tender (Minimal tenderness without redness) , Normal Capillary Refill, Pedal Edema (2+ pitting edema up to mid calf). No: Redness Skin: Warm, Dry, Intact Neuro Extensive - Mental Status: Oriented x3 Neuro Extensive - Motor, Sensory, Reflexes: CN II-XII Intact Psychiatric: Other (Lethargic) - Patient Data Lab Results Last 24 hrs: Laboratory Results - last 24 hr 08/04/19 08/04/19 08/04/19 Range/Units 12:04 12:10 12:10 WBC 8.81 (3.98-10.04) K/mm3 RBC 3.81 L (3.98-5.22) M/mm3 Hgb 12.7 (11.2-15.7) gm/dl Hct 40.7 (34.1-44.9) % MCV 106.8 H D (79.4-94.8) fl MCH 33.3 H (25.6-32.2) pg MCHC 31.2 L (32.2-35.5) g/dl RDW Std Deviation 49.3 H (36.4-46.3) fL Plt Count 447 H D (182-369) K/mm3 MPV 10.9 (9.4-12.3) fl Neut % (Auto) 73.4 H (34.0-71.1) % Lymph % (Auto) 21.2 (19.3-51.7) % [place] % (Auto) 4.3 L (4.7-12.5) % Eos % (Auto) 0.1 L (0.7-5.8) Baso % (Auto) 0.3 (0.1-1.2) % Neut # (Auto) 6.46 H (1.56-6.13) K/mm3 Lymph # (Auto) 1.87 (1.18-3.74) K/mm3 [place] # (Auto) 0.38 H (0.24-0.36) K/mm3 Eos # (Auto) 0.01 L (0.04-0.36) K/mm3 Baso # (Auto) 0.03 (0.01-0.08) K/mm3 Manual Slide Review Abnormal smear Puncture Site Rt brachial ABG pH 7.00 L* (7.35-7.45) ABG pCO2 9.3 L* (35.0-45.0) mmHg ABG pO2 125.0 H (80.0-100.0) mmHg ABG HCO3 2.2 L (22.0-26.0) meq/L ABG O2 Saturation 97.4 H (96.0-97.0) % ABG Base Excess -29.1 L (-2-2.0) Graham Test Positive VBG pH (7.30-7.40) O2 Delivery Device Room air FiO2 0.00 L (21.00-100.00) % Sodium 143 (136-145) mEq/L Potassium 4.5 (3.5-5.1) mEq/L Chloride 98 (98-107) mEq/L Carbon Dioxide < 5 L* D (21-32) mEq/L Anion Gap TNP BUN 24 H (7-18) mg/dL Creatinine 1.4 H (0.55-1.02) mg/dL Est Cr Clr Drug Dosing 38.90 mL/min Estimated GFR (MDRD) 45 (>60) mL/min BUN/Creatinine Ratio 17.1 (14-18) Glucose 870 H* (74-106) mg/dL Serum Osmolality 370 H (280-300) mosm/kg Calcium 9.2 (8.5-10.1) mg/dL Phosphorus (2.6-4.7) mg/dL Magnesium 2.3 (1.8-2.4) mg/dl Total Bilirubin 0.8 (0.2-1.0) mg/dL AST 250 H (15-37) U/L ALT 190 H (14-59) U/L Alkaline Phosphatase 286 H (46-116) U/L Total Protein 6.7 (6.4-8.2) g/dl Albumin 3.5 (3.4-5.0) g/dl Globulin 3.2 gm/dL Albumin/Globulin Ratio 1.1 (1-2) Lipase 52 L (73-393) U/L HCG, Qual (NEGATIVE) Urine Color (Yellow) Urine Appearance (Clear) Urine pH (5.0-8.0) Ur Specific [place] (1.005-1.030) Urine Protein (Negative) Urine Glucose (UA) (Negative) Urine Ketones (Negative) Urine Occult Blood (Negative) Urine Nitrite (Negative) Urine Bilirubin (Negative) Urine Urobilinogen (0.2-1.0) Ur Leukocyte Esterase (Negative) Urine RBC (0-5) /hpf Urine WBC (0-5) /hpf Ur Squamous Epith Cells (0-5) /hpf Urine Bacteria (FEW) /hpf Urine Mucus (FEW) /hpf Urine Opiates Screen (RPWTPB=228) Ur Buprenorphine Scrn (CUTOFF=10) Ur Oxycodone Screen (DDU4ZE=255) Urine Methadone Screen (HAXLTB=025) Ur Propoxyphene Screen (AQKIFV=844) Ur Barbiturates Screen (CFFEFJ=201) Ur Tricyclics Screen (WCXLZB=930) Ur Phencyclidine Scrn (CUTOFF=25) Ur Amphetamine Screen (PXDCIF=005) U Methamphetamines Scrn (FBENKT=640) U Benzodiazepines Scrn (FOXMXJ=737) U Cocaine Metab Screen (LPWWWJ=002) U Marijuana (THC) Screen (CUTOFF=50) Ketones (0.0-0.3) mM 08/04/19 08/04/19 08/04/19 Range/Units 12:10 12:10 13:00 WBC (3.98-10.04) K/mm3 RBC (3.98-5.22) M/mm3 Hgb (11.2-15.7) gm/dl Hct (34.1-44.9) % MCV (79.4-94.8) fl MCH (25.6-32.2) pg MCHC (32.2-35.5) g/dl RDW Std Deviation (36.4-46.3) fL Plt Count (182-369) K/mm3 MPV (9.4-12.3) fl Neut % (Auto) (34.0-71.1) % Lymph % (Auto) (19.3-51.7) % [place] % (Auto) (4.7-12.5) % Eos % (Auto) (0.7-5.8) Baso % (Auto) (0.1-1.2) % Neut # (Auto) (1.56-6.13) K/mm3 Lymph # (Auto) (1.18-3.74) K/mm3 [place] # (Auto) (0.24-0.36) K/mm3 Eos # (Auto) (0.04-0.36) K/mm3 Baso # (Auto) (0.01-0.08) K/mm3 Manual Slide Review Puncture Site ABG pH (7.35-7.45) ABG pCO2 (35.0-45.0) mmHg ABG pO2 (80.0-100.0) mmHg ABG HCO3 (22.0-26.0) meq/L ABG O2 Saturation (96.0-97.0) % ABG Base Excess (-2-2.0) Graham Test VBG pH (7.30-7.40) O2 Delivery Device FiO2 (21.00-100.00) % Sodium (136-145) mEq/L Potassium (3.5-5.1) mEq/L Chloride (98-107) mEq/L Carbon Dioxide (21-32) mEq/L Anion Gap BUN (7-18) mg/dL Creatinine (0.55-1.02) mg/dL Est Cr Clr Drug Dosing mL/min Estimated GFR (MDRD) (>60) mL/min BUN/Creatinine Ratio (14-18) Glucose (74-106) mg/dL Serum Osmolality (280-300) mosm/kg Calcium (8.5-10.1) mg/dL Phosphorus (2.6-4.7) mg/dL Magnesium (1.8-2.4) mg/dl Total Bilirubin (0.2-1.0) mg/dL AST (15-37) U/L ALT (14-59) U/L Alkaline Phosphatase (46-116) U/L Total Protein (6.4-8.2) g/dl Albumin (3.4-5.0) g/dl Globulin gm/dL Albumin/Globulin Ratio (1-2) Lipase (73-393) U/L HCG, Qual Negative (NEGATIVE) Urine Color Yellow (Yellow) Urine Appearance Clear (Clear) Urine pH 5.0 (5.0-8.0) Ur Specific [place] 1.020 (1.005-1.030) Urine Protein Trace H (Negative) Urine Glucose (UA) 2+ H (Negative) Urine Ketones 4+ H (Negative) Urine Occult Blood 1+ H (Negative) Urine Nitrite Negative (Negative) Urine Bilirubin Negative (Negative) Urine Urobilinogen 0.2 (0.2-1.0) Ur Leukocyte Esterase Negative (Negative) Urine RBC 0-5 (0-5) /hpf Urine WBC Not seen (0-5) /hpf Ur Squamous Epith Cells Not seen (0-5) /hpf Urine Bacteria Not seen (FEW) /hpf Urine Mucus Not seen (FEW) /hpf Urine Opiates Screen (QSOUFH=597) Ur Buprenorphine Scrn (CUTOFF=10) Ur Oxycodone Screen (KXH2BO=173) Urine Methadone Screen (JXXZFU=875) Ur Propoxyphene Screen (WRHZMV=558) Ur Barbiturates Screen (SBGJTC=899) Ur Tricyclics Screen (KXZNVS=329) Ur Phencyclidine Scrn (CUTOFF=25) Ur Amphetamine Screen (UHZCKF=863) U Methamphetamines Scrn (QJKKBA=815) U Benzodiazepines Scrn (ONWQVY=951) U Cocaine Metab Screen (AWAOON=131) U Marijuana (THC) Screen (CUTOFF=50) Ketones 17.0 (0.0-0.3) mM 08/04/19 08/04/1908/03/20 Range/Units 13:00 15:55 15:58 WBC (3.98-10.04) K/mm3 RBC (3.98-5.22) M/mm3 Hgb (11.2-15.7) gm/dl Hct (34.1-44.9) % MCV (79.4-94.8) fl MCH (25.6-32.2) pg MCHC (32.2-35.5) g/dl RDW Std Deviation (36.4-46.3) fL Plt Count (182-369) K/mm3 MPV (9.4-12.3) fl Neut % (Auto) (34.0-71.1) % Lymph % (Auto) (19.3-51.7) % [place] % (Auto) (4.7-12.5) % Eos % (Auto) (0.7-5.8) Baso % (Auto) (0.1-1.2) % Neut # (Auto) (1.56-6.13) K/mm3 Lymph # (Auto) (1.18-3.74) K/mm3 [place] # (Auto) (0.24-0.36) K/mm3 Eos # (Auto) (0.04-0.36) K/mm3 Baso # (Auto) (0.01-0.08) K/mm3 Manual Slide Review Puncture Site ABG pH (7.35-7.45) ABG pCO2 (35.0-45.0) mmHg ABG pO2 (80.0-100.0) mmHg ABG HCO3 (22.0-26.0) meq/L ABG O2 Saturation (96.0-97.0) % ABG Base Excess (-2-2.0) Graham Test VBG pH 7.20 L (7.30-7.40) O2 Delivery Device FiO2 (21.00-100.00) % Sodium 149 H (136-145) mEq/L Potassium 4.5 (3.5-5.1) mEq/L Chloride 107 (98-107) mEq/L Carbon Dioxide 9 L (21-32) mEq/L Anion Gap 37.5 H BUN 21 H (7-18) mg/dL Creatinine 1.3 H (0.55-1.02) mg/dL Est Cr Clr Drug Dosing 41.89 mL/min Estimated GFR (MDRD) 49 (>60) mL/min BUN/Creatinine Ratio 16.2 (14-18) Glucose 525 H* (74-106) mg/dL Serum Osmolality (280-300) mosm/kg Calcium 8.3 L (8.5-10.1) mg/dL Phosphorus 3.9 (2.6-4.7) mg/dL Magnesium 2.1 (1.8-2.4) mg/dl Total Bilirubin (0.2-1.0) mg/dL AST (15-37) U/L ALT (14-59) U/L Alkaline Phosphatase (46-116) U/L Total Protein (6.4-8.2) g/dl Albumin (3.4-5.0) g/dl Globulin gm/dL Albumin/Globulin Ratio (1-2) Lipase (73-393) U/L HCG, Qual (NEGATIVE) Urine Color (Yellow) Urine Appearance (Clear) Urine pH (5.0-8.0) Ur Specific [place] (1.005-1.030) Urine Protein (Negative) Urine Glucose (UA) (Negative) Urine Ketones (Negative) Urine Occult Blood (Negative) Urine Nitrite (Negative) Urine Bilirubin (Negative) Urine Urobilinogen (0.2-1.0) Ur Leukocyte Esterase (Negative) Urine RBC (0-5) /hpf Urine WBC (0-5) /hpf Ur Squamous Epith Cells (0-5) /hpf Urine Bacteria (FEW) /hpf Urine Mucus (FEW) /hpf Urine Opiates Screen Negative (BXIKVG=011) Ur Buprenorphine Scrn Negative (CUTOFF=10) Ur Oxycodone Screen Negative (NSU4UX=411) Urine Methadone Screen Negative (YCZCBC=097) Ur Propoxyphene Screen Negative (NPHLAZ=688) Ur Barbiturates Screen Negative (PROKVB=552) Ur Tricyclics Screen Negative (UEWJKJ=429) Ur Phencyclidine Scrn Negative (CUTOFF=25) Ur Amphetamine Screen Negative (ZGWILA=699) U Methamphetamines Scrn Negative (NCXIVI=050) U Benzodiazepines Scrn Negative (XRLLBF=209) U Cocaine Metab Screen Negative (VQPCTZ=829) U Marijuana (THC) Screen Negative (CUTOFF=50) Ketones (0.0-0.3) mM Result Diagrams: 08/04/19 12:10 08/04/19 15:58 Sepsis Event Note - Evaluation Sepsis Screening Result: No Definite Risk - Focused Exam Vital Signs: Vital Signs Temp Pulse Resp BP Pulse Ox 08/04/19 15:00 97.3 F 124 H 20 110/74 100 08/04/19 12:47 97.0 F 144 H 24 H 130/99 H 100 08/04/19 11:59 97.9 F 144 H 24 H 136/91 H 99 Date Exam was Performed: 08/04/19 Time Exam was Performed: 17:07 Problem List Initiated/Reviewed/Updated: Yes Orders Last 24hrs: Active Orders 24 hr Category Date Time Status Patient Status [ADT] Routine ADT 08/04/19 15:00 Active Blood Glucose Check, Bedside [RC] Q1H Care 08/04/19 15:57 Active Insert Barraza Catheter [Insert Urinary Catheter] [OM.PC] Care 08/04/19 12:55 Ordered Q24H Oxygen Therapy [RC] PRN Care 08/04/19 16:45 Ordered Peripheral IV Care [RC] . DIRECTED Care 08/04/19 12:00 Active Up With Assistance [RC] ASDIRECTED Care 08/04/19 16:45 Ordered Urinary Catheter Assessment [RC] ASDIRECTED Care 08/04/19 12:55 Active VTE/DVT Education [RC] PER UNIT ROUTINE Care 08/04/19 16:45 Ordered Vital Signs [RC] Q4H Care 08/04/19 16:45 Ordered Nothing per Oral Now Diet [DIET] Diet 08/04/19 Dinner Ordered BASIC METABOLIC PANEL,BMP [CHEM] Q4H Lab 08/04/19 19:00 Ordered BASIC METABOLIC PANEL,BMP [CHEM] Q4H Lab 08/04/19 23:00 Ordered BASIC METABOLIC PANEL,BMP [CHEM] Q4H Lab 08/05/19 03:00 Ordered BASIC METABOLIC PANEL,BMP [CHEM] Q4H Lab 08/05/19 07:00 Ordered GLYCOSYLATED HEMOGLOBIN,HGBA1C [CHEM] AM Lab 08/05/19 05:11 Ordered HEPATIC FUNCTION PANEL,HFP [CHEM] AM Lab 08/05/19 05:11 Ordered MAGNESIUM [CHEM] Q4H Lab 08/04/19 19:00 Ordered MAGNESIUM [CHEM] Q4H Lab 08/04/19 23:00 Ordered MAGNESIUM [CHEM] Q4H Lab 08/05/19 03:00 Ordered MAGNESIUM [CHEM] Q4H Lab 08/05/19 07:00 Ordered PHOSPHORUS [CHEM] Q4H Lab 08/04/19 19:00 Ordered PHOSPHORUS [CHEM] Q4H Lab 08/04/19 23:00 Ordered PHOSPHORUS [CHEM] Q4H Lab 08/05/19 03:00 Ordered PHOSPHORUS [CHEM] Q4H Lab 08/05/19 07:00 Ordered Enoxaparin [Lovenox] Med 08/05/19 09:00 Ordered 40 mg SUBCUT DAILY Insulin Regular, Human [HumuLIN R] 100 unit Med 08/04/19 14:15 Active Sodium Chloride 0.9% [Normal Saline] 99 ml IV TITRATE Ondansetron [Zofran] Med 08/04/19 16:45 Ordered 4 mg IV Q4H PRN Sertraline Med 08/05/19 09:00 Ordered 100 mg PO DAILY Sodium Chloride 0.45% with KCl [1/2 NS with 20 mEq KCl] Med 08/04/19 16:00 Active 1,000 ml IV ASDIRECTED Sodium Chloride 0.9% [Saline Flush] Med 08/04/19 12:00 Active 10 ml FLUSH ASDIRECTED PRN ED Antiemetic Medication Reflex [OM.PC] Stat Oth 08/04/19 12:01 Ordered Peripheral IV Insertion Adult [OM.PC] Stat Oth 08/04/19 12:00 Ordered Resuscitation Status Routine Resus Stat 08/04/19 16:45 Ordered Medication Orders Enoxaparin Sodium (Lovenox) 40 mg SUBCUT DAILY STEPHANIE Insulin Human Regular 100 unit (/ Sodium Chloride) 100 mls @ 4.08 mls/hr IV TITRATE STEPHANIE; Protocol Last Admin: 08/04/19 14:40 Dose: 0.1 units/kg/hr, 4.08 mls/hr Potassium Chloride/Sodium Chloride (1/2 Ns With 20 Meq Kcl) 1,000 mls @ 250 mls /hr IV ASDIRECTED STEPHANIE Non-Formulary Medication (Sertraline) 100 mg PO DAILY STEPHANIE Ondansetron HCl (Zofran) 4 mg IV Q4H PRN PRN Reason: Nausea/Vomiting Sodium Chloride (Saline Flush) 10 ml FLUSH ASDIRECTED PRN PRN Reason: Keep Vein Open Last Admin: 08/04/19 12:19 Dose: 10 ml Admin: 04/21/20 12:18 Dose: 10 ml Assessment/Plan Comment:: Assessment 29-year-old type I diabetic returned from vacation in [place] yesterday and was hospitalized for nausea, vomiting, hyperglycemia last week for 3 days. Patient brought in for worsening mental status and high blood sugars by her . * DKA * Initial blood sugar 870, ketones 17 * Unknown precipitating factor. * Significant acidosis: ABG: pH 7.0, PCO2 9.3, PO2 125, HCO3 2.2 * Severe hypovolemia with corrected sodium of 161, serum osmolality 370 * Acute renal injury * BUN 24, creatinine 1.4, estimated GFR 45 * Possible gastroparesis * History of recurrent vomiting 1 to 2 hours after eating since last December. * Complains of a feeling of fullness 1 to 2 hours after eating * Elevated liver enzymes * AST 250, ALT 190, alkaline phosphatase 286, total bilirubin 0.8 Plan * Admit to ICU for DKA protocol. * BMP, magnesium, phosphorus every 4 hours. * 1/2 normal saline with 20 mEq of KCl per liter at 250 mL/h until blood sugars are less than 200. Then switched to D5 half-normal saline at 152 250 mL/h. * Titrate insulin drip to decrease glucose by 50 to 70 mg/dL/h until serum glucose reaches 200 mg/dL. Then decrease regular insulin infusion to 0.02 to 0.05 units/kg/h. * Change to subcutaneous insulin when ketoacidosis is resolved. * N.p.o. until resolution of ketoacidosis. * Consult geophysical computer Prophylaxis: Lovenox 40 mg subcu daily CODE STATUS: Full code Disposition: Admit to ICU for DKA - Mortality Measure Prognosis:: Good
[2019-08-04] MEDS: D5 1/2 NS w/ 20 mEq/L KCl 1,000 ML IV SCH (21:34)
[2019-08-05] MEDS ORDERED: Magnesium Sulfate/Water 2 GM in Premix Bag 1 BAG IV ONE (00:27)
[2019-08-05] MEDS: D5 1/2 NS w/ 20 mEq/L KCl 1,000 ML IV SCH ×2 (01:36→05:37)
[2019-08-05 04:02] LABS: HEMOGLOBIN A1C 11.1 % (4.50-6.20)
[2019-08-05] MEDS ORDERED: Sodium Chloride 0.45% 1,000 ML IV SCH (06:15)
[2019-08-05] MEDS ORDERED: Ketorolac 15 MG/ML SDV IVPUSH ONE (08:30)
[2019-08-05] MEDS: Ondansetron 4 MG/2 ML SDV IV PRN ×3 (08:41→19:27)
[2019-08-05] MEDS: Sertraline 50 MG Tab PO SCH (08:41)
[2019-08-05] MEDS ORDERED: Enoxaparin 40 MG/0.4 ML Syringe SUBCUT SCH (09:00)
[2019-08-05] MEDS: Insulin Glarg,Human.Rec.Analog 100 Unit/ML SUBCUT SCH (09:34)
[2019-08-05] MEDS: Insulin Lispro 100 Units/ML 3 ML Vial SUBCUT SCH ×7 (09:36→22:05)
--- NOTE | 2019-08-05 10:11 | PCM.PN ---
- General Info Date of Service: 08/05/19 Admission Dx/Problem (Free Text): Admission Diagnosis/Problem Admission Diagnosis/Problem Diabetic ketoacidosis Subjective Update: Patient states that she is feeling much better. She denies any nausea or vomiting this morning. Functional Status: Reports: Pain Controlled - Review of Systems General: Reports: No Symptoms HEENT: Reports: No Symptoms Pulmonary: Reports: No Symptoms Cardiovascular: Reports: No Symptoms Gastrointestinal: Reports: Abdominal Pain Musculoskeletal: Reports: No Symptoms Neurological: Reports: No Symptoms - Patient Data Vitals - Most Recent: Last Vital Signs Temp 98.7 F 08/05/19 04:00 Pulse 105 H 08/05/19 03:00 Resp 16 08/05/19 04:00 BP 100/77 08/05/19 04:00 Pulse Ox 97 08/05/19 04:00 Weight - Most Recent: 103 lb I&O - Last 24 Hours: Intake & Output 08/04/19 08/05/19 08/05/19 22:59 06:59 14:59 Intake Total 836 2483 Output Total 1650 375 Balance -814 2108 Lab Results Last 24 Hours: Laboratory Results - last 24 hr 08/04/19 08/04/19 08/04/19 Range/Units 12:04 12:10 12:10 WBC 8.81 (3.98-10.04) K/mm3 RBC 3.81 L (3.98-5.22) M/mm3 Hgb 12.7 (11.2-15.7) gm/dl Hct 40.7 (34.1-44.9) % MCV 106.8 H D (79.4-94.8) fl MCH 33.3 H (25.6-32.2) pg MCHC 31.2 L (32.2-35.5) g/dl RDW Std Deviation 49.3 H (36.4-46.3) fL Plt Count 447 H D (182-369) K/mm3 MPV 10.9 (9.4-12.3) fl Neut % (Auto) 73.4 H (34.0-71.1) % Lymph % (Auto) 21.2 (19.3-51.7) % [place] % (Auto) 4.3 L (4.7-12.5) % Eos % (Auto) 0.1 L (0.7-5.8) Baso % (Auto) 0.3 (0.1-1.2) % Neut # (Auto) 6.46 H (1.56-6.13) K/mm3 Lymph # (Auto) 1.87 (1.18-3.74) K/mm3 [place] # (Auto) 0.38 H (0.24-0.36) K/mm3 Eos # (Auto) 0.01 L (0.04-0.36) K/mm3 Baso # (Auto) 0.03 (0.01-0.08) K/mm3 Manual Slide Review Abnormal smear Puncture Site Rt brachial ABG pH 7.00 L* (7.35-7.45) ABG pCO2 9.3 L* (35.0-45.0) mmHg ABG pO2 125.0 H (80.0-100.0) mmHg ABG HCO3 2.2 L (22.0-26.0) meq/L ABG O2 Saturation 97.4 H (96.0-97.0) % ABG Base Excess -29.1 L (-2-2.0) Graham Test Positive VBG pH (7.30-7.40) O2 Delivery Device Room air FiO2 0.00 L (21.00-100.00) % Sodium 143 (136-145) mEq/L Potassium 4.5 (3.5-5.1) mEq/L Chloride 98 (98-107) mEq/L Carbon Dioxide < 5 L* D (21-32) mEq/L Anion Gap TNP BUN 24 H (7-18) mg/dL Creatinine 1.4 H (0.55-1.02) mg/dL Est Cr Clr Drug Dosing 38.90 mL/min Estimated GFR (MDRD) 45 (>60) mL/min BUN/Creatinine Ratio 17.1 (14-18) Glucose 870 H* (74-106) mg/dL POC Glucose (70-105) mg/dL Hemoglobin A1c (4.50-6.20) % Serum Osmolality 370 H (280-300) mosm/kg Calcium 9.2 (8.5-10.1) mg/dL Phosphorus (2.6-4.7) mg/dL Magnesium 2.3 (1.8-2.4) mg/dl Total Bilirubin 0.8 (0.2-1.0) mg/dL Direct Bilirubin (0.0-0.2) mg/dl Indirect Bilirubin AST 250 H (15-37) U/L ALT 190 H (14-59) U/L Alkaline Phosphatase 286 H (46-116) U/L Total Protein 6.7 (6.4-8.2) g/dl Albumin 3.5 (3.4-5.0) g/dl Globulin 3.2 gm/dL Albumin/Globulin Ratio 1.1 (1-2) Lipase 52 L (73-393) U/L HCG, Qual (NEGATIVE) Urine Color (Yellow) Urine Appearance (Clear) Urine pH (5.0-8.0) Ur Specific [place] (1.005-1.030) Urine Protein (Negative) Urine Glucose (UA) (Negative) Urine Ketones (Negative) Urine Occult Blood (Negative) Urine Nitrite (Negative) Urine Bilirubin (Negative) Urine Urobilinogen (0.2-1.0) Ur Leukocyte Esterase (Negative) Urine RBC (0-5) /hpf Urine WBC (0-5) /hpf Ur Squamous Epith Cells (0-5) /hpf Amorphous Sediment (NOT SEEN) /hpf Urine Bacteria (FEW) /hpf Urine Mucus (FEW) /hpf Urine Opiates Screen (KENSIL=741) Ur Buprenorphine Scrn (CUTOFF=10) Ur Oxycodone Screen (XYD6HW=008) Urine Methadone Screen (HXDMQQ=544) Ur Propoxyphene Screen (LRNWMR=616) Ur Barbiturates Screen (WMFSNW=538) Ur Tricyclics Screen (BIVZLH=367) Ur Phencyclidine Scrn (CUTOFF=25) Ur Amphetamine Screen (YLCSYK=501) U Methamphetamines Scrn (ZUQYZA=516) U Benzodiazepines Scrn (OSXFNW=212) U Cocaine Metab Screen (HGFTTV=407) U Marijuana (THC) Screen (CUTOFF=50) Ketones (0.0-0.3) mM 08/04/19 08/04/19 08/04/19 Range/Units 12:10 12:10 13:00 WBC (3.98-10.04) K/mm3 RBC (3.98-5.22) M/mm3 Hgb (11.2-15.7) gm/dl Hct (34.1-44.9) % MCV (79.4-94.8) fl MCH (25.6-32.2) pg MCHC (32.2-35.5) g/dl RDW Std Deviation (36.4-46.3) fL Plt Count (182-369) K/mm3 MPV (9.4-12.3) fl Neut % (Auto) (34.0-71.1) % Lymph % (Auto) (19.3-51.7) % [place] % (Auto) (4.7-12.5) % Eos % (Auto) (0.7-5.8) Baso % (Auto) (0.1-1.2) % Neut # (Auto) (1.56-6.13) K/mm3 Lymph # (Auto) (1.18-3.74) K/mm3 [place] # (Auto) (0.24-0.36) K/mm3 Eos # (Auto) (0.04-0.36) K/mm3 Baso # (Auto) (0.01-0.08) K/mm3 Manual Slide Review Puncture Site ABG pH (7.35-7.45) ABG pCO2 (35.0-45.0) mmHg ABG pO2 (80.0-100.0) mmHg ABG HCO3 (22.0-26.0) meq/L ABG O2 Saturation (96.0-97.0) % ABG Base Excess (-2-2.0) Graham Test VBG pH (7.30-7.40) O2 Delivery Device FiO2 (21.00-100.00) % Sodium (136-145) mEq/L Potassium (3.5-5.1) mEq/L Chloride (98-107) mEq/L Carbon Dioxide (21-32) mEq/L Anion Gap BUN (7-18) mg/dL Creatinine (0.55-1.02) mg/dL Est Cr Clr Drug Dosing mL/min Estimated GFR (MDRD) (>60) mL/min BUN/Creatinine Ratio (14-18) Glucose (74-106) mg/dL POC Glucose (70-105) mg/dL Hemoglobin A1c (4.50-6.20) % Serum Osmolality (280-300) mosm/kg Calcium (8.5-10.1) mg/dL Phosphorus (2.6-4.7) mg/dL Magnesium (1.8-2.4) mg/dl Total Bilirubin (0.2-1.0) mg/dL Direct Bilirubin (0.0-0.2) mg/dl Indirect Bilirubin AST (15-37) U/L ALT (14-59) U/L Alkaline Phosphatase (46-116) U/L Total Protein (6.4-8.2) g/dl Albumin (3.4-5.0) g/dl Globulin gm/dL Albumin/Globulin Ratio (1-2) Lipase (73-393) U/L HCG, Qual Negative (NEGATIVE) Urine Color Yellow (Yellow) Urine Appearance Clear (Clear) Urine pH 5.0 (5.0-8.0) Ur Specific [place] 1.020 (1.005-1.030) Urine Protein Trace H (Negative) Urine Glucose (UA) 2+ H (Negative) Urine Ketones 4+ H (Negative) Urine Occult Blood 1+ H (Negative) Urine Nitrite Negative (Negative) Urine Bilirubin Negative (Negative) Urine Urobilinogen 0.2 (0.2-1.0) Ur Leukocyte Esterase Negative (Negative) Urine RBC 0-5 (0-5) /hpf Urine WBC Not seen (0-5) /hpf Ur Squamous Epith Cells Not seen (0-5) /hpf Amorphous Sediment (NOT SEEN) /hpf Urine Bacteria Not seen (FEW) /hpf Urine Mucus Not seen (FEW) /hpf Urine Opiates Screen (SZTTTF=337) Ur Buprenorphine Scrn (CUTOFF=10) Ur Oxycodone Screen (HYP3TU=871) Urine Methadone Screen (MGWFJG=738) Ur Propoxyphene Screen (YUPEXJ=831) Ur Barbiturates Screen (FPEJLP=620) Ur Tricyclics Screen (KSYAHH=213) Ur Phencyclidine Scrn (CUTOFF=25) Ur Amphetamine Screen (SPFEDV=558) U Methamphetamines Scrn (HWCBUN=206) U Benzodiazepines Scrn (XYXKSE=971) U Cocaine Metab Screen (GNQMGY=042) U Marijuana (THC) Screen (CUTOFF=50) Ketones 17.0 (0.0-0.3) mM 08/04/19 08/04/19 08/04/19 Range/Units 13:00 15:55 15:58 WBC (3.98-10.04) K/mm3 RBC (3.98-5.22) M/mm3 Hgb (11.2-15.7) gm/dl Hct (34.1-44.9) % MCV (79.4-94.8) fl MCH (25.6-32.2) pg MCHC (32.2-35.5) g/dl RDW Std Deviation (36.4-46.3) fL Plt Count (182-369) K/mm3 MPV (9.4-12.3) fl Neut % (Auto) (34.0-71.1) % Lymph % (Auto) (19.3-51.7) % [place] % (Auto) (4.7-12.5) % Eos % (Auto) (0.7-5.8) Baso % (Auto) (0.1-1.2) % Neut # (Auto) (1.56-6.13) K/mm3 Lymph # (Auto) (1.18-3.74) K/mm3 [place] # (Auto) (0.24-0.36) K/mm3 Eos # (Auto) (0.04-0.36) K/mm3 Baso # (Auto) (0.01-0.08) K/mm3 Manual Slide Review Puncture Site ABG pH (7.35-7.45) ABG pCO2 (35.0-45.0) mmHg ABG pO2 (80.0-100.0) mmHg ABG HCO3 (22.0-26.0) meq/L ABG O2 Saturation (96.0-97.0) % ABG Base Excess (-2-2.0) Graham Test VBG pH 7.20 L (7.30-7.40) O2 Delivery Device FiO2 (21.00-100.00) % Sodium 149 H (136-145) mEq/L Potassium 4.5 (3.5-5.1) mEq/L Chloride 107 (98-107) mEq/L Carbon Dioxide 9 L (21-32) mEq/L Anion Gap 37.5 H BUN 21 H (7-18) mg/dL Creatinine 1.3 H (0.55-1.02) mg/dL Est Cr Clr Drug Dosing 41.89 mL/min Estimated GFR (MDRD) 49 (>60) mL/min BUN/Creatinine Ratio 16.2 (14-18) Glucose 525 H* (74-106) mg/dL POC Glucose (70-105) mg/dL Hemoglobin A1c (4.50-6.20) % Serum Osmolality (280-300) mosm/kg Calcium 8.3 L (8.5-10.1) mg/dL Phosphorus 3.9 (2.6-4.7) mg/dL Magnesium 2.1 (1.8-2.4) mg/dl Total Bilirubin (0.2-1.0) mg/dL Direct Bilirubin (0.0-0.2) mg/dl Indirect Bilirubin AST (15-37) U/L ALT (14-59) U/L Alkaline Phosphatase (46-116) U/L Total Protein (6.4-8.2) g/dl Albumin (3.4-5.0) g/dl Globulin gm/dL Albumin/Globulin Ratio (1-2) Lipase (73-393) U/L HCG, Qual (NEGATIVE) Urine Color (Yellow) Urine Appearance (Clear) Urine pH (5.0-8.0) Ur Specific [place] (1.005-1.030) Urine Protein (Negative) Urine Glucose (UA) (Negative) Urine Ketones (Negative) Urine Occult Blood (Negative) Urine Nitrite (Negative) Urine Bilirubin (Negative) Urine Urobilinogen (0.2-1.0) Ur Leukocyte Esterase (Negative) Urine RBC (0-5) /hpf Urine WBC (0-5) /hpf Ur Squamous Epith Cells (0-5) /hpf Amorphous Sediment (NOT SEEN) /hpf Urine Bacteria (FEW) /hpf Urine Mucus (FEW) /hpf Urine Opiates Screen Negative (CDGGQW=344) Ur Buprenorphine Scrn Negative (CUTOFF=10) Ur Oxycodone Screen Negative (WZQ5LF=659) Urine Methadone Screen Negative (JENVIS=299) Ur Propoxyphene Screen Negative (RRAMLG=908) Ur Barbiturates Screen Negative (WWSWUU=163) Ur Tricyclics Screen Negative (CXIAQB=200) Ur Phencyclidine Scrn Negative (CUTOFF=25) Ur Amphetamine Screen Negative (YOGYSW=502) U Methamphetamines Scrn Negative (JNRINX=095) U Benzodiazepines Scrn Negative (BKBGTD=170) U Cocaine Metab Screen Negative (RNXJSS=531) U Marijuana (THC) Screen Negative (CUTOFF=50) Ketones (0.0-0.3) mM 04/21/20 04/21/20 04/21/20 Range/Units 17:24 18:11 19:00 WBC (3.98-10.04) K/mm3 RBC (3.98-5.22) M/mm3 Hgb (11.2-15.7) gm/dl Hct (34.1-44.9) % MCV (79.4-94.8) fl MCH (25.6-32.2) pg MCHC (32.2-35.5) g/dl RDW Std Deviation (36.4-46.3) fL Plt Count (182-369) K/mm3 MPV (9.4-12.3) fl Neut % (Auto) (34.0-71.1) % Lymph % (Auto) (19.3-51.7) % [place] % (Auto) (4.7-12.5) % Eos % (Auto) (0.7-5.8) Baso % (Auto) (0.1-1.2) % Neut # (Auto) (1.56-6.13) K/mm3 Lymph # (Auto) (1.18-3.74) K/mm3 [place] # (Auto) (0.24-0.36) K/mm3 Eos # (Auto) (0.04-0.36) K/mm3 Baso # (Auto) (0.01-0.08) K/mm3 Manual Slide Review Puncture Site ABG pH (7.35-7.45) ABG pCO2 (35.0-45.0) mmHg ABG pO2 (80.0-100.0) mmHg ABG HCO3 (22.0-26.0) meq/L ABG O2 Saturation (96.0-97.0) % ABG Base Excess (-2-2.0) Graham Test VBG pH (7.30-7.40) O2 Delivery Device FiO2 (21.00-100.00) % Sodium 150 H (136-145) mEq/L Potassium 3.9 (3.5-5.1) mEq/L Chloride 109 H (98-107) mEq/L Carbon Dioxide 10 L (21-32) mEq/L Anion Gap 34.9 H BUN 17 (7-18) mg/dL Creatinine 1.3 H (0.55-1.02) mg/dL Est Cr Clr Drug Dosing 41.89 mL/min Estimated GFR (MDRD) 49 (>60) mL/min BUN/Creatinine Ratio 13.1 L (14-18) Glucose 359 H 238 H (74-106) mg/dL POC Glucose 281 H (70-105) mg/dL Hemoglobin A1c (4.50-6.20) % Serum Osmolality (280-300) mosm/kg Calcium 8.2 L (8.5-10.1) mg/dL Phosphorus 2.7 (2.6-4.7) mg/dL Magnesium 1.8 (1.8-2.4) mg/dl Total Bilirubin (0.2-1.0) mg/dL Direct Bilirubin (0.0-0.2) mg/dl Indirect Bilirubin AST (15-37) U/L ALT (14-59) U/L Alkaline Phosphatase (46-116) U/L Total Protein (6.4-8.2) g/dl Albumin (3.4-5.0) g/dl Globulin gm/dL Albumin/Globulin Ratio (1-2) Lipase (73-393) U/L HCG, Qual (NEGATIVE) Urine Color (Yellow) Urine Appearance (Clear) Urine pH (5.0-8.0) Ur Specific [place] (1.005-1.030) Urine Protein (Negative) Urine Glucose (UA) (Negative) Urine Ketones (Negative) Urine Occult Blood (Negative) Urine Nitrite (Negative) Urine Bilirubin (Negative) Urine Urobilinogen (0.2-1.0) Ur Leukocyte Esterase (Negative) Urine RBC (0-5) /hpf Urine WBC (0-5) /hpf Ur Squamous Epith Cells (0-5) /hpf Amorphous Sediment (NOT SEEN) /hpf Urine Bacteria (FEW) /hpf Urine Mucus (FEW) /hpf Urine Opiates Screen (APYMAW=178) Ur Buprenorphine Scrn (CUTOFF=10) Ur Oxycodone Screen (JWL9LG=738) Urine Methadone Screen (YWRPGG=198) Ur Propoxyphene Screen (OWDRAU=197) Ur Barbiturates Screen (FAXZMW=895) Ur Tricyclics Screen (AKTUUU=409) Ur Phencyclidine Scrn (CUTOFF=25) Ur Amphetamine Screen (ZOORHB=824) U Methamphetamines Scrn (FTPGHY=991) U Benzodiazepines Scrn (RLPAUD=482) U Cocaine Metab Screen (SQXBDZ=686) U Marijuana (THC) Screen (CUTOFF=50) Ketones (0.0-0.3) mM 08/04/19 08/04/19 08/04/19 Range/Units 20:06 21:01 22:01 WBC (3.98-10.04) K/mm3 RBC (3.98-5.22) M/mm3 Hgb (11.2-15.7) gm/dl Hct (34.1-44.9) % MCV (79.4-94.8) fl MCH (25.6-32.2) pg MCHC (32.2-35.5) g/dl RDW Std Deviation (36.4-46.3) fL Plt Count (182-369) K/mm3 MPV (9.4-12.3) fl Neut % (Auto) (34.0-71.1) % Lymph % (Auto) (19.3-51.7) % [place] % (Auto) (4.7-12.5) % Eos % (Auto) (0.7-5.8) Baso % (Auto) (0.1-1.2) % Neut # (Auto) (1.56-6.13) K/mm3 Lymph # (Auto) (1.18-3.74) K/mm3 [place] # (Auto) (0.24-0.36) K/mm3 Eos # (Auto) (0.04-0.36) K/mm3 Baso # (Auto) (0.01-0.08) K/mm3 Manual Slide Review Puncture Site ABG pH (7.35-7.45) ABG pCO2 (35.0-45.0) mmHg ABG pO2 (80.0-100.0) mmHg ABG HCO3 (22.0-26.0) meq/L ABG O2 Saturation (96.0-97.0) % ABG Base Excess (-2-2.0) Graham Test VBG pH (7.30-7.40) O2 Delivery Device FiO2 (21.00-100.00) % Sodium (136-145) mEq/L Potassium (3.5-5.1) mEq/L Chloride (98-107) mEq/L Carbon Dioxide (21-32) mEq/L Anion Gap BUN (7-18) mg/dL Creatinine (0.55-1.02) mg/dL Est Cr Clr Drug Dosing mL/min Estimated GFR (MDRD) (>60) mL/min BUN/Creatinine Ratio (14-18) Glucose (74-106) mg/dL POC Glucose 174 H 126 H 170 H (70-105) mg/dL Hemoglobin A1c (4.50-6.20) % Serum Osmolality (280-300) mosm/kg Calcium (8.5-10.1) mg/dL Phosphorus (2.6-4.7) mg/dL Magnesium (1.8-2.4) mg/dl Total Bilirubin (0.2-1.0) mg/dL Direct Bilirubin (0.0-0.2) mg/dl Indirect Bilirubin AST (15-37) U/L ALT (14-59) U/L Alkaline Phosphatase (46-116) U/L Total Protein (6.4-8.2) g/dl Albumin (3.4-5.0) g/dl Globulin gm/dL Albumin/Globulin Ratio (1-2) Lipase (73-393) U/L HCG, Qual (NEGATIVE) Urine Color (Yellow) Urine Appearance (Clear) Urine pH (5.0-8.0) Ur Specific [place] (1.005-1.030) Urine Protein (Negative) Urine Glucose (UA) (Negative) Urine Ketones (Negative) Urine Occult Blood (Negative) Urine Nitrite (Negative) Urine Bilirubin (Negative) Urine Urobilinogen (0.2-1.0) Ur Leukocyte Esterase (Negative) Urine RBC (0-5) /hpf Urine WBC (0-5) /hpf Ur Squamous Epith Cells (0-5) /hpf Amorphous Sediment (NOT SEEN) /hpf Urine Bacteria (FEW) /hpf Urine Mucus (FEW) /hpf Urine Opiates Screen (ONXDRQ=051) Ur Buprenorphine Scrn (CUTOFF=10) Ur Oxycodone Screen (PAL1HT=271) Urine Methadone Screen (YDOILS=985) Ur Propoxyphene Screen (BSVIDF=174) Ur Barbiturates Screen (JIEUPU=640) Ur Tricyclics Screen (HFQGII=189) Ur Phencyclidine Scrn (CUTOFF=25) Ur Amphetamine Screen (WSDQAQ=523) U Methamphetamines Scrn (FSUTKF=978) U Benzodiazepines Scrn (VTDWDV=771) U Cocaine Metab Screen (DMRCLE=729) U Marijuana (THC) Screen (CUTOFF=50) Ketones (0.0-0.3) mM 08/04/19 08/04/19 08/05/19 Range/Units 23:01 23:07 00:02 WBC (3.98-10.04) K/mm3 RBC (3.98-5.22) M/mm3 Hgb (11.2-15.7) gm/dl Hct (34.1-44.9) % MCV (79.4-94.8) fl MCH (25.6-32.2) pg MCHC (32.2-35.5) g/dl RDW Std Deviation (36.4-46.3) fL Plt Count (182-369) K/mm3 MPV (9.4-12.3) fl Neut % (Auto) (34.0-71.1) % Lymph % (Auto) (19.3-51.7) % [place] % (Auto) (4.7-12.5) % Eos % (Auto) (0.7-5.8) Baso % (Auto) (0.1-1.2) % Neut # (Auto) (1.56-6.13) K/mm3 Lymph # (Auto) (1.18-3.74) K/mm3 [place] # (Auto) (0.24-0.36) K/mm3 Eos # (Auto) (0.04-0.36) K/mm3 Baso # (Auto) (0.01-0.08) K/mm3 Manual Slide Review Puncture Site ABG pH (7.35-7.45) ABG pCO2 (35.0-45.0) mmHg ABG pO2 (80.0-100.0) mmHg ABG HCO3 (22.0-26.0) meq/L ABG O2 Saturation (96.0-97.0) % ABG Base Excess (-2-2.0) Graham Test VBG pH (7.30-7.40) O2 Delivery Device FiO2 (21.00-100.00) % Sodium 148 H (136-145) mEq/L Potassium 4.0 (3.5-5.1) mEq/L Chloride 112 H (98-107) mEq/L Carbon Dioxide 20 L D (21-32) mEq/L Anion Gap 20.0 H BUN 14 (7-18) mg/dL Creatinine 1.1 H (0.55-1.02) mg/dL Est Cr Clr Drug Dosing 49.51 mL/min Estimated GFR (MDRD) 60 (>60) mL/min BUN/Creatinine Ratio 12.7 L (14-18) Glucose 145 H (74-106) mg/dL POC Glucose 149 H 146 H (70-105) mg/dL Hemoglobin A1c (4.50-6.20) % Serum Osmolality (280-300) mosm/kg Calcium 8.1 L (8.5-10.1) mg/dL Phosphorus 2.2 L (2.6-4.7) mg/dL Magnesium 1.7 L (1.8-2.4) mg/dl Total Bilirubin (0.2-1.0) mg/dL Direct Bilirubin (0.0-0.2) mg/dl Indirect Bilirubin AST (15-37) U/L ALT (14-59) U/L Alkaline Phosphatase (46-116) U/L Total Protein (6.4-8.2) g/dl Albumin (3.4-5.0) g/dl Globulin gm/dL Albumin/Globulin Ratio (1-2) Lipase (73-393) U/L HCG, Qual (NEGATIVE) Urine Color (Yellow) Urine Appearance (Clear) Urine pH (5.0-8.0) Ur Specific [place] (1.005-1.030) Urine Protein (Negative) Urine Glucose (UA) (Negative) Urine Ketones (Negative) Urine Occult Blood (Negative) Urine Nitrite (Negative) Urine Bilirubin (Negative) Urine Urobilinogen (0.2-1.0) Ur Leukocyte Esterase (Negative) Urine RBC (0-5) /hpf Urine WBC (0-5) /hpf Ur Squamous Epith Cells (0-5) /hpf Amorphous Sediment (NOT SEEN) /hpf Urine Bacteria (FEW) /hpf Urine Mucus (FEW) /hpf Urine Opiates Screen (UEFTGI=434) Ur Buprenorphine Scrn (CUTOFF=10) Ur Oxycodone Screen (MJX7NN=814) Urine Methadone Screen (UGIFFR=169) Ur Propoxyphene Screen (MMYBDT=518) Ur Barbiturates Screen (QUKZTG=949) Ur Tricyclics Screen (XJFROS=413) Ur Phencyclidine Scrn (CUTOFF=25) Ur Amphetamine Screen (IVTRPJ=971) U Methamphetamines Scrn (BVAXDF=900) U Benzodiazepines Scrn (RKQWGN=799) U Cocaine Metab Screen (WFVXTM=660) U Marijuana (THC) Screen (CUTOFF=50) Ketones (0.0-0.3) mM 08/05/19 08/05/19 08/05/19 Range/Units 00:50 01:03 02:00 WBC (3.98-10.04) K/mm3 RBC (3.98-5.22) M/mm3 Hgb (11.2-15.7) gm/dl Hct (34.1-44.9) % MCV (79.4-94.8) fl MCH (25.6-32.2) pg MCHC (32.2-35.5) g/dl RDW Std Deviation (36.4-46.3) fL Plt Count (182-369) K/mm3 MPV (9.4-12.3) fl Neut % (Auto) (34.0-71.1) % Lymph % (Auto) (19.3-51.7) % [place] % (Auto) (4.7-12.5) % Eos % (Auto) (0.7-5.8) Baso % (Auto) (0.1-1.2) % Neut # (Auto) (1.56-6.13) K/mm3 Lymph # (Auto) (1.18-3.74) K/mm3 [place] # (Auto) (0.24-0.36) K/mm3 Eos # (Auto) (0.04-0.36) K/mm3 Baso # (Auto) (0.01-0.08) K/mm3 Manual Slide Review Puncture Site ABG pH (7.35-7.45) ABG pCO2 (35.0-45.0) mmHg ABG pO2 (80.0-100.0) mmHg ABG HCO3 (22.0-26.0) meq/L ABG O2 Saturation (96.0-97.0) % ABG Base Excess (-2-2.0) Graham Test VBG pH (7.30-7.40) O2 Delivery Device FiO2 (21.00-100.00) % Sodium (136-145) mEq/L Potassium (3.5-5.1) mEq/L Chloride (98-107) mEq/L Carbon Dioxide (21-32) mEq/L Anion Gap BUN (7-18) mg/dL Creatinine (0.55-1.02) mg/dL Est Cr Clr Drug Dosing mL/min Estimated GFR (MDRD) (>60) mL/min BUN/Creatinine Ratio (14-18) Glucose (74-106) mg/dL POC Glucose 139 H 148 H (70-105) mg/dL Hemoglobin A1c (4.50-6.20) % Serum Osmolality (280-300) mosm/kg Calcium (8.5-10.1) mg/dL Phosphorus (2.6-4.7) mg/dL Magnesium (1.8-2.4) mg/dl Total Bilirubin (0.2-1.0) mg/dL Direct Bilirubin (0.0-0.2) mg/dl Indirect Bilirubin AST (15-37) U/L ALT (14-59) U/L Alkaline Phosphatase (46-116) U/L Total Protein (6.4-8.2) g/dl Albumin (3.4-5.0) g/dl Globulin gm/dL Albumin/Globulin Ratio (1-2) Lipase (73-393) U/L HCG, Qual (NEGATIVE) Urine Color Yellow (Yellow) Urine Appearance Turbid H (Clear) Urine pH 6.0 (5.0-8.0) Ur Specific [place] > or = 1.030 (1.005-1.030) Urine Protein 1+ H (Negative) Urine Glucose (UA) Negative (Negative) Urine Ketones 2+ H (Negative) Urine Occult Blood 1+ H (Negative) Urine Nitrite Negative (Negative) Urine Bilirubin 3+ H (Negative) Urine Urobilinogen 0.2 (0.2-1.0) Ur Leukocyte Esterase Negative (Negative) Urine RBC 0-5 (0-5) /hpf Urine WBC Not seen (0-5) /hpf Ur Squamous Epith Cells 0-5 (0-5) /hpf Amorphous Sediment Many H (NOT SEEN) /hpf Urine Bacteria Few (FEW) /hpf Urine Mucus Rare (FEW) /hpf Urine Opiates Screen (KORYAA=296) Ur Buprenorphine Scrn (CUTOFF=10) Ur Oxycodone Screen (PMJ0PN=552) Urine Methadone Screen (MDLFUP=345) Ur Propoxyphene Screen (YSFDUP=413) Ur Barbiturates Screen (JTEBGI=317) Ur Tricyclics Screen (ABAJYP=534) Ur Phencyclidine Scrn (CUTOFF=25) Ur Amphetamine Screen (SQJFOU=536) U Methamphetamines Scrn (VBPUSQ=511) U Benzodiazepines Scrn (OCLIOE=049) U Cocaine Metab Screen (VMDMHW=486) U Marijuana (THC) Screen (CUTOFF=50) Ketones (0.0-0.3) mM 08/05/19 08/05/19 08/05/19 Range/Units 03:01 03:05 03:05 WBC (3.98-10.04) K/mm3 RBC (3.98-5.22) M/mm3 Hgb (11.2-15.7) gm/dl Hct (34.1-44.9) % MCV (79.4-94.8) fl MCH (25.6-32.2) pg MCHC (32.2-35.5) g/dl RDW Std Deviation (36.4-46.3) fL Plt Count (182-369) K/mm3 MPV (9.4-12.3) fl Neut % (Auto) (34.0-71.1) % Lymph % (Auto) (19.3-51.7) % [place] % (Auto) (4.7-12.5) % Eos % (Auto) (0.7-5.8) Baso % (Auto) (0.1-1.2) % Neut # (Auto) (1.56-6.13) K/mm3 Lymph # (Auto) (1.18-3.74) K/mm3 [place] # (Auto) (0.24-0.36) K/mm3 Eos # (Auto) (0.04-0.36) K/mm3 Baso # (Auto) (0.01-0.08) K/mm3 Manual Slide Review Puncture Site ABG pH (7.35-7.45) ABG pCO2 (35.0-45.0) mmHg ABG pO2 (80.0-100.0) mmHg ABG HCO3 (22.0-26.0) meq/L ABG O2 Saturation (96.0-97.0) % ABG Base Excess (-2-2.0) Graham Test VBG pH (7.30-7.40) O2 Delivery Device FiO2 (21.00-100.00) % Sodium 148 H (136-145) mEq/L Potassium 4.2 (3.5-5.1) mEq/L Chloride 113 H (98-107) mEq/L Carbon Dioxide 26 (21-32) mEq/L Anion Gap 13.2 BUN 13 (7-18) mg/dL Creatinine 1.1 H (0.55-1.02) mg/dL Est Cr Clr Drug Dosing 49.51 mL/min Estimated GFR (MDRD) 60 (>60) mL/min BUN/Creatinine Ratio 11.8 L (14-18) Glucose 138 H (74-106) mg/dL POC Glucose 133 H (70-105) mg/dL Hemoglobin A1c 11.10 H (4.50-6.20) % Serum Osmolality (280-300) mosm/kg Calcium 8.2 L (8.5-10.1) mg/dL Phosphorus 2.3 L (2.6-4.7) mg/dL Magnesium 2.5 H (1.8-2.4) mg/dl Total Bilirubin (0.2-1.0) mg/dL Direct Bilirubin (0.0-0.2) mg/dl Indirect Bilirubin AST (15-37) U/L ALT (14-59) U/L Alkaline Phosphatase (46-116) U/L Total Protein (6.4-8.2) g/dl Albumin (3.4-5.0) g/dl Globulin gm/dL Albumin/Globulin Ratio (1-2) Lipase (73-393) U/L HCG, Qual (NEGATIVE) Urine Color (Yellow) Urine Appearance (Clear) Urine pH (5.0-8.0) Ur Specific [place] (1.005-1.030) Urine Protein (Negative) Urine Glucose (UA) (Negative) Urine Ketones (Negative) Urine Occult Blood (Negative) Urine Nitrite (Negative) Urine Bilirubin (Negative) Urine Urobilinogen (0.2-1.0) Ur Leukocyte Esterase (Negative) Urine RBC (0-5) /hpf Urine WBC (0-5) /hpf Ur Squamous Epith Cells (0-5) /hpf Amorphous Sediment (NOT SEEN) /hpf Urine Bacteria (FEW) /hpf Urine Mucus (FEW) /hpf Urine Opiates Screen (FSZGTV=291) Ur Buprenorphine Scrn (CUTOFF=10) Ur Oxycodone Screen (OXP4TJ=177) Urine Methadone Screen (LKDZZJ=774) Ur Propoxyphene Screen (JFZUIQ=838) Ur Barbiturates Screen (NJNNQI=262) Ur Tricyclics Screen (LQJRVX=669) Ur Phencyclidine Scrn (CUTOFF=25) Ur Amphetamine Screen (XYJINF=354) U Methamphetamines Scrn (FEXFIV=375) U Benzodiazepines Scrn (CWZHNH=395) U Cocaine Metab Screen (JZDRXX=480) U Marijuana (THC) Screen (CUTOFF=50) Ketones (0.0-0.3) mM 08/05/19 08/05/19 08/05/19 Range/Units 03:05 04:03 05:04 WBC (3.98-10.04) K/mm3 RBC (3.98-5.22) M/mm3 Hgb (11.2-15.7) gm/dl Hct (34.1-44.9) % MCV (79.4-94.8) fl MCH (25.6-32.2) pg MCHC (32.2-35.5) g/dl RDW Std Deviation (36.4-46.3) fL Plt Count (182-369) K/mm3 MPV (9.4-12.3) fl Neut % (Auto) (34.0-71.1) % Lymph % (Auto) (19.3-51.7) % [place] % (Auto) (4.7-12.5) % Eos % (Auto) (0.7-5.8) Baso % (Auto) (0.1-1.2) % Neut # (Auto) (1.56-6.13) K/mm3 Lymph # (Auto) (1.18-3.74) K/mm3 [place] # (Auto) (0.24-0.36) K/mm3 Eos # (Auto) (0.04-0.36) K/mm3 Baso # (Auto) (0.01-0.08) K/mm3 Manual Slide Review Puncture Site ABG pH (7.35-7.45) ABG pCO2 (35.0-45.0) mmHg ABG pO2 (80.0-100.0) mmHg ABG HCO3 (22.0-26.0) meq/L ABG O2 Saturation (96.0-97.0) % ABG Base Excess (-2-2.0) Graham Test VBG pH (7.30-7.40) O2 Delivery Device FiO2 (21.00-100.00) % Sodium (136-145) mEq/L Potassium (3.5-5.1) mEq/L Chloride (98-107) mEq/L Carbon Dioxide (21-32) mEq/L Anion Gap BUN (7-18) mg/dL Creatinine (0.55-1.02) mg/dL Est Cr Clr Drug Dosing mL/min Estimated GFR (MDRD) (>60) mL/min BUN/Creatinine Ratio (14-18) Glucose (74-106) mg/dL POC Glucose 138 H 162 H (70-105) mg/dL Hemoglobin A1c (4.50-6.20) % Serum Osmolality (280-300) mosm/kg Calcium (8.5-10.1) mg/dL Phosphorus (2.6-4.7) mg/dL Magnesium (1.8-2.4) mg/dl Total Bilirubin 0.2 (0.2-1.0) mg/dL Direct Bilirubin 0.10 (0.0-0.2) mg/dl Indirect Bilirubin 0.10 AST 222 H (15-37) U/L ALT 154 H (14-59) U/L Alkaline Phosphatase 128 H (46-116) U/L Total Protein 4.9 L (6.4-8.2) g/dl Albumin 2.5 L (3.4-5.0) g/dl Globulin 2.4 gm/dL Albumin/Globulin Ratio 1.0 (1-2) Lipase (73-393) U/L HCG, Qual (NEGATIVE) Urine Color (Yellow) Urine Appearance (Clear) Urine pH (5.0-8.0) Ur Specific [place] (1.005-1.030) Urine Protein (Negative) Urine Glucose (UA) (Negative) Urine Ketones (Negative) Urine Occult Blood (Negative) Urine Nitrite (Negative) Urine Bilirubin (Negative) Urine Urobilinogen (0.2-1.0) Ur Leukocyte Esterase (Negative) Urine RBC (0-5) /hpf Urine WBC (0-5) /hpf Ur Squamous Epith Cells (0-5) /hpf Amorphous Sediment (NOT SEEN) /hpf Urine Bacteria (FEW) /hpf Urine Mucus (FEW) /hpf Urine Opiates Screen (HLZVOH=119) Ur Buprenorphine Scrn (CUTOFF=10) Ur Oxycodone Screen (HOM2KC=679) Urine Methadone Screen (CEYTQT=351) Ur Propoxyphene Screen (DJXDOD=025) Ur Barbiturates Screen (HXLXCK=863) Ur Tricyclics Screen (MDJSPU=145) Ur Phencyclidine Scrn (CUTOFF=25) Ur Amphetamine Screen (PEQRRM=313) U Methamphetamines Scrn (NENBQA=117) U Benzodiazepines Scrn (JFTPWR=832) U Cocaine Metab Screen (NSOLCH=473) U Marijuana (THC) Screen (CUTOFF=50) Ketones (0.0-0.3) mM 08/05/19 08/05/19 08/05/19 Range/Units 06:02 06:55 06:56 WBC (3.98-10.04) K/mm3 RBC (3.98-5.22) M/mm3 Hgb (11.2-15.7) gm/dl Hct (34.1-44.9) % MCV (79.4-94.8) fl MCH (25.6-32.2) pg MCHC (32.2-35.5) g/dl RDW Std Deviation (36.4-46.3) fL Plt Count (182-369) K/mm3 MPV (9.4-12.3) fl Neut % (Auto) (34.0-71.1) % Lymph % (Auto) (19.3-51.7) % [place] % (Auto) (4.7-12.5) % Eos % (Auto) (0.7-5.8) Baso % (Auto) (0.1-1.2) % Neut # (Auto) (1.56-6.13) K/mm3 Lymph # (Auto) (1.18-3.74) K/mm3 [place] # (Auto) (0.24-0.36) K/mm3 Eos # (Auto) (0.04-0.36) K/mm3 Baso # (Auto) (0.01-0.08) K/mm3 Manual Slide Review Puncture Site ABG pH (7.35-7.45) ABG pCO2 (35.0-45.0) mmHg ABG pO2 (80.0-100.0) mmHg ABG HCO3 (22.0-26.0) meq/L ABG O2 Saturation (96.0-97.0) % ABG Base Excess (-2-2.0) Graham Test VBG pH (7.30-7.40) O2 Delivery Device FiO2 (21.00-100.00) % Sodium 140 (136-145) mEq/L Potassium 4.7 (3.5-5.1) mEq/L Chloride 107 (98-107) mEq/L Carbon Dioxide 24 (21-32) mEq/L Anion Gap 13.7 BUN 11 (7-18) mg/dL Creatinine 0.8 (0.55-1.02) mg/dL Est Cr Clr Drug Dosing 77.91 mL/min Estimated GFR (MDRD) > 60 (>60) mL/min BUN/Creatinine Ratio 13.8 L (14-18) Glucose 270 H (74-106) mg/dL POC Glucose 263 H 246 H (70-105) mg/dL Hemoglobin A1c (4.50-6.20) % Serum Osmolality (280-300) mosm/kg Calcium 7.9 L (8.5-10.1) mg/dL Phosphorus 2.5 L (2.6-4.7) mg/dL Magnesium 2.4 (1.8-2.4) mg/dl Total Bilirubin (0.2-1.0) mg/dL Direct Bilirubin (0.0-0.2) mg/dl Indirect Bilirubin AST (15-37) U/L ALT (14-59) U/L Alkaline Phosphatase (46-116) U/L Total Protein (6.4-8.2) g/dl Albumin (3.4-5.0) g/dl Globulin gm/dL Albumin/Globulin Ratio (1-2) Lipase (73-393) U/L HCG, Qual (NEGATIVE) Urine Color (Yellow) Urine Appearance (Clear) Urine pH (5.0-8.0) Ur Specific [place] (1.005-1.030) Urine Protein (Negative) Urine Glucose (UA) (Negative) Urine Ketones (Negative) Urine Occult Blood (Negative) Urine Nitrite (Negative) Urine Bilirubin (Negative) Urine Urobilinogen (0.2-1.0) Ur Leukocyte Esterase (Negative) Urine RBC (0-5) /hpf Urine WBC (0-5) /hpf Ur Squamous Epith Cells (0-5) /hpf Amorphous Sediment (NOT SEEN) /hpf Urine Bacteria (FEW) /hpf Urine Mucus (FEW) /hpf Urine Opiates Screen (TBPUNH=115) Ur Buprenorphine Scrn (CUTOFF=10) Ur Oxycodone Screen (HNA5CY=227) Urine Methadone Screen (WSBMYM=173) Ur Propoxyphene Screen (DHPVRC=289) Ur Barbiturates Screen (AHZFAR=819) Ur Tricyclics Screen (YJOXPL=303) Ur Phencyclidine Scrn (CUTOFF=25) Ur Amphetamine Screen (OXQONP=899) U Methamphetamines Scrn (NVDKDW=680) U Benzodiazepines Scrn (MYYJYH=257) U Cocaine Metab Screen (WWZNXZ=334) U Marijuana (THC) Screen (CUTOFF=50) Ketones (0.0-0.3) mM 08/05/19 08/05/19 Range/Units 08:14 09:29 WBC (3.98-10.04) K/mm3 RBC (3.98-5.22) M/mm3 Hgb (11.2-15.7) gm/dl Hct (34.1-44.9) % MCV (79.4-94.8) fl MCH (25.6-32.2) pg MCHC (32.2-35.5) g/dl RDW Std Deviation (36.4-46.3) fL Plt Count (182-369) K/mm3 MPV (9.4-12.3) fl Neut % (Auto) (34.0-71.1) % Lymph % (Auto) (19.3-51.7) % [place] % (Auto) (4.7-12.5) % Eos % (Auto) (0.7-5.8) Baso % (Auto) (0.1-1.2) % Neut # (Auto) (1.56-6.13) K/mm3 Lymph # (Auto) (1.18-3.74) K/mm3 [place] # (Auto) (0.24-0.36) K/mm3 Eos # (Auto) (0.04-0.36) K/mm3 Baso # (Auto) (0.01-0.08) K/mm3 Manual Slide Review Puncture Site ABG pH (7.35-7.45) ABG pCO2 (35.0-45.0) mmHg ABG pO2 (80.0-100.0) mmHg ABG HCO3 (22.0-26.0) meq/L ABG O2 Saturation (96.0-97.0) % ABG Base Excess (-2-2.0) Graham Test VBG pH (7.30-7.40) O2 Delivery Device FiO2 (21.00-100.00) % Sodium (136-145) mEq/L Potassium (3.5-5.1) mEq/L Chloride (98-107) mEq/L Carbon Dioxide (21-32) mEq/L Anion Gap BUN (7-18) mg/dL Creatinine (0.55-1.02) mg/dL Est Cr Clr Drug Dosing mL/min Estimated GFR (MDRD) (>60) mL/min BUN/Creatinine Ratio (14-18) Glucose (74-106) mg/dL POC Glucose 295 H 279 H (70-105) mg/dL Hemoglobin A1c (4.50-6.20) % Serum Osmolality (280-300) mosm/kg Calcium (8.5-10.1) mg/dL Phosphorus (2.6-4.7) mg/dL Magnesium (1.8-2.4) mg/dl Total Bilirubin (0.2-1.0) mg/dL Direct Bilirubin (0.0-0.2) mg/dl Indirect Bilirubin AST (15-37) U/L ALT (14-59) U/L Alkaline Phosphatase (46-116) U/L Total Protein (6.4-8.2) g/dl Albumin (3.4-5.0) g/dl Globulin gm/dL Albumin/Globulin Ratio (1-2) Lipase (73-393) U/L HCG, Qual (NEGATIVE) Urine Color (Yellow) Urine Appearance (Clear) Urine pH (5.0-8.0) Ur Specific [place] (1.005-1.030) Urine Protein (Negative) Urine Glucose (UA) (Negative) Urine Ketones (Negative) Urine Occult Blood (Negative) Urine Nitrite (Negative) Urine Bilirubin (Negative) Urine Urobilinogen (0.2-1.0) Ur Leukocyte Esterase (Negative) Urine RBC (0-5) /hpf Urine WBC (0-5) /hpf Ur Squamous Epith Cells (0-5) /hpf Amorphous Sediment (NOT SEEN) /hpf Urine Bacteria (FEW) /hpf Urine Mucus (FEW) /hpf Urine Opiates Screen (WMJUUZ=772) Ur Buprenorphine Scrn (CUTOFF=10) Ur Oxycodone Screen (EFA4GV=883) Urine Methadone Screen (GWSBEV=742) Ur Propoxyphene Screen (NLWUBQ=989) Ur Barbiturates Screen (LJVFSE=921) Ur Tricyclics Screen (RBVQPR=162) Ur Phencyclidine Scrn (CUTOFF=25) Ur Amphetamine Screen (HFYDSM=884) U Methamphetamines Scrn (VDHHJD=958) U Benzodiazepines Scrn (AVWVPE=509) U Cocaine Metab Screen (SNWGMO=498) U Marijuana (THC) Screen (CUTOFF=50) Ketones (0.0-0.3) mM Med Orders - Current: Current Medications Dextrose/Water (Dextrose 50% In Water) 50 ml IVPUSH ASDIRECTED PRN PRN Reason: Hypoglycemia Insulin Human Regular 100 unit (/ Sodium Chloride) 100 mls @ 4.08 mls/hr IV TITRATE STEPHANIE; Protocol Last Titration: 08/05/19 03:45 Dose: 0 units/kg/hr, 0 mls/hr Insulin Glargine (Lantus) 15 unit SUBCUT DAILY STEPHANIE Last Admin: 08/05/19 09:34 Dose: 15 units Insulin Human Lispro (Humalog) 0 unit SUBCUT QIDACANDBED STEPHANIE; Protocol Last Admin: 08/05/19 09:36 Dose: 3 units Insulin Human Lispro (Humalog) 1 unit SUBCUT TIDPC STEPHANIE Ondansetron HCl (Zofran) 4 mg IV Q4H PRN PRN Reason: Nausea/Vomiting Last Admin: 08/05/19 08:41 Dose: 4 mg Sertraline HCl (Zoloft) 100 mg PO DAILY STEPHANIE Last Admin: 08/05/19 08:41 Dose: 100 mg Sodium Chloride (Saline Flush) 10 ml FLUSH ASDIRECTED PRN PRN Reason: Keep Vein Open Last Admin: 08/04/19 12:19 Dose: 10 ml Discontinued Medications Enoxaparin Sodium (Lovenox) 40 mg SUBCUT DAILY [facility] Sodium Chloride (Normal Saline) 2,000 mls @ 1,000 mls/hr IV .BOLUS STA Stop: 08/04/19 13:59 Last Admin: 08/04/19 12:15 Dose: 1,000 mls/hr Lactated Ringer's (Ringers, Lactated) 1,000 mls @ 1,000 mls/hr IV .BOLUS ONE Stop: 08/04/19 15:52 Last Admin: 08/04/19 14:57 Dose: 1,000 mls/hr Potassium Chloride/Sodium Chloride (1/2 Ns With 20 Meq Kcl) 1,000 mls @ 250 mls /hr IV ASDIRECTED [facility] Last Admin: 08/04/19 18:00 Dose: 250 mls/hr Potassium Chloride/Dextrose/Sod Cl (D5 1/2 Ns W/ 20 Meq/L Kcl) 1,000 mls @ 250 mls/hr IV ASDIRECTED [facility] Last Admin: 08/05/19 05:37 Dose: 250 mls/hr Magnesium Sulfate 2 gm/ Premix 50 mls @ 25 mls/hr IV ONETIME ONE Stop: 08/05/19 02:26 Last Admin: 08/05/19 00:40 Dose: 25 mls/hr Sodium Chloride (Sodium Chloride 0.45%) 1,000 mls @ 125 mls/hr IV ASDIRECTED [facility] Last Admin: 08/05/19 06:17 Dose: 125 mls/hr Ketorolac Tromethamine (Toradol) 15 mg IVPUSH ONETIME ONE Stop: 08/05/19 08:31 Last Admin: 08/05/19 08:41 Dose: 15 mg Ondansetron HCl (Zofran) 4 mg IVPUSH ONETIME ONE Stop: 08/04/19 12:01 Last Admin: 08/04/19 12:14 Dose: 4 mg - Exam Quality Assessment: No: Supplemental Oxygen General: Alert, Oriented HEENT: Pupils Equal, Mucous Membr. Moist/[place] Neck: Supple Lungs: Clear to Auscultation, Normal Respiratory Effort Cardiovascular: Regular Rate, Regular Rhythm GI/Abdominal Exam: Normal Bowel Sounds, Soft, No Organomegaly, No Distention, Tender (diffuse. worse RUQ) Extremities: Normal Inspection, Normal Range of Motion, Non-Tender, Normal Capillary Refill, Pedal Edema (1+ ) Skin: Warm, Dry, Intact Psy/Mental Status: Alert, Normal Affect, Normal Mood Sepsis Event Note - Evaluation Sepsis Screening Result: No Definite Risk - Focused Exam Vital Signs: Vital Signs Temp Pulse Resp BP BP Pulse Ox 08/05/19 04:00 98.7 F 16 100/77 97 08/05/19 03:00 105 H 100 08/05/19 02:09 98.7 F 08/05/19 02:00 104 H 97/72 99 08/05/19 01:00 104 H 98 08/05/19 00:46 99.8 F 08/05/19 00:00 100 F 14 98/63 98 08/04/19 23:00 107 H 97 Date Exam was Performed: 08/05/19 Time Exam was Performed: 11:36 - Problem List Review Problem List Initiated/Reviewed/Updated: Yes - My Orders Last 24 Hours: My Active Orders 08/04/19 15:30 Barraza Catheter Insertion [Insert Urinary Catheter] [OM.PC] Q24H 08/04/19 15:57 Blood Glucose Check, Bedside [RC] Q1HR 08/04/19 16:45 Oxygen Therapy [RC] PRN Up With Assistance [RC] .ASDIRECTED VTE/DVT Education [RC] Ondansetron [Zofran] 4 mg IV Q4H PRN Resuscitation Status Routine 08/05/19 08:28 Dextrose 50% in Water 50 ml IVPUSH ASDIRECTED PRN 08/05/19 08:30 Antiembolic Devices [RC] PER UNIT ROUTINE DARRIUS Hose [Antiembolic Hose] [OM.PC] Routine 08/05/19 09:00 Consult to Diabetic Nurse Specialist [CONS] Routine Insulin Glarg,Human.Rec.Analog [LantUS] 15 unit SUBCUT DAILY Insulin Lispro [HumaLOG] 1 unit SUBCUT TIDPC Sertraline [Zoloft] 100 mg PO DAILY 08/05/19 09:24 Consult to Dietary [Consult to [facility]] [CONS] Routine 08/05/19 09:40 Abdomen Comp [US] Routine 08/05/19 11:00 Insulin Lispro [HumaLOG] See Protocol SUBCUT QIDACANDBED 08/05/19 Breakfast Consistent Carbohydrate Diet [DIET] - Plan Plan:: Assessment Day of admission 29-year-old type I diabetic returned from vacation in [place] yesterday and was hospitalized for nausea, vomiting, hyperglycemia last week for 3 days. Patient brought in for worsening mental status and high blood sugars by her . * DKA * Initial blood sugar 870, ketones 17 * Unknown precipitating factor. * Significant acidosis: ABG: pH 7.0, PCO2 9.3, PO2 125, HCO3 2.2 * Severe hypovolemia with corrected sodium of 161, serum osmolality 370 * Acute renal injury * BUN 24, creatinine 1.4, estimated GFR 45 * Possible gastroparesis * History of recurrent vomiting 1 to 2 hours after eating since last December. * Complains of a feeling of fullness 1 to 2 hours after eating * Elevated liver enzymes * AST 250, ALT 190, alkaline phosphatase 286, total bilirubin 0.8 Day 1 * Patient came out of DKA overnight and closed her anion gap. * Switch over to subcu insulin today. * She states she has had at least 2 previous scans of her abdomen. Review of the CT scan done in March 2019 for generalized abdominal pain shows: 1. Mild increased stool throughout the colon. 2. No additional abnormalities appreciated on CT study of the abdomen and pelvis. No acute abnormality is appreciated. * She would like to advance to a regular diet, although she is likely to have difficulty eating secondary to her recurrent nausea and vomiting. Plan * Admit to ICU for DKA protocol. * BMP, magnesium, phosphorus in the morning. * Start diabetic diet. * Lantus 15 units daily. This is below her previous home dose of 27 units and also below her discharge dose from [place] of 19 units. 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 It will be easier to follow her blood sugars closely here in the hospital. * Change to subcutaneous insulin. Start sliding scale insulin and post prandial insulin. Postprandial insulin 1 unit if she eats 80% of her meal or more. This will likely be too low of a dose, but we can cover her with a sliding scale. * Abdominal ultrasound in the morning. * Patient may need further work-up for gastroparesis. * Consult community educator * Consult dietitian Prophylaxis: Compression stockings CODE STATUS: Full code Disposition: Monitor in the ICU for close watch of her oral intake and blood sugars.
[2019-08-05] MEDS ORDERED: Acetaminophen 325 MG Tab PO ONE (11:30)
[2019-08-05] MEDS ORDERED: Scopolamine 1.5 MG Transdermal Patch TOP ONE (19:45)
[2019-08-06] MEDS: 50% Dextrose in Water 50 ML Syringe IVPUSH PRN ×2 (02:08→21:05)
[2019-08-06] MEDS: Insulin Lispro 100 Units/ML 3 ML Vial SUBCUT SCH ×5 (06:50→22:19)
[2019-08-06] MEDS: Insulin Glarg,Human.Rec.Analog 100 Unit/ML SUBCUT SCH (08:38)
[2019-08-06] MEDS: Sertraline 50 MG Tab PO SCH (08:40)
--- NOTE | 2019-08-06 09:43 | US ---
Abdominal ultrasound: Multiple real-time images were obtained of the abdomen. Comparison: Prior CT abdomen and pelvis study of 04/05/19. Liver is very echogenic. Small hypoechoic nodule is noted beneath the capsule of the anterior right lobe measuring 1.5 cm. Gallbladder contains no shadowing gallstones. No gallbladder wall thickening or biliary duct dilatation is seen. Aorta shows no aneurysm. Kidneys show no hydronephrosis or mass. Right kidney length is 10.4 cm and left kidney length is 11.1 cm. Pancreas appears within normal limits. Inferior vena cava is patent. Main portal vein shows normal hepatopedal flow. Impression: 1. Echogenic liver most likely due to fatty infiltration. 2. Small 1.5 cm hypoechoic area within the anterior liver which is most likely benign. This is not definitely appreciated on previous CT study. Recommend follow-up ultrasound study in 6 months to confirm stability. This follow-up would occur in January or February, . 3. No additional abnormality is seen on abdominal ultrasound study. Diagnostic code #3 This report was dictated in MDT
[2019-08-06] MEDS ORDERED: Piperacillin/Tazobactam 4.5 GM in Sodium Chloride 0.9% 100 ML IV ONE (13:30)
--- NOTE | 2019-08-06 14:43 | PCM.PN ---
- General Info Date of Service: 08/06/19 - Review of Systems Systems Review Comment:: The patient was seen and examined by me, and discussed with Dr. finley. At time of my exam, patient resting in bed. Not in acute distress today. Patient reported no significant nausea today, but states she has not really been eating due to fear of nausea still reports epigastric/abdominal discomfort. No fevers no chills noted. Nursing staff did not report any other acute complaints with the patient. Vital signs this morning asked 98.0, positive for blood pressure 123/92. Part of chest pain or palpitations. - Patient Data Vitals - Most Recent: Last Vital Signs Temp 97.2 F 08/06/19 08:00 Pulse 79 08/06/19 08:00 Resp 14 08/06/19 08:00 BP 125/99 H 08/06/19 08:00 Pulse Ox 97 08/06/19 08:00 Weight - Most Recent: 105 lb I&O - Last 24 Hours: Intake & Output 08/05/19 08/06/19 08/06/19 22:59 06:59 14:59 Intake Total 2330 400 0 Balance 2330 400 0 Lab Results Last 24 Hours: Laboratory Results - last 24 hr 08/05/19 08/05/19 08/05/19 Range/Units 15:16 17:15 19:23 WBC (3.98-10.04) K/mm3 RBC (3.98-5.22) M/mm3 Hgb (11.2-15.7) gm/dl Hct (34.1-44.9) % MCV (79.4-94.8) fl MCH (25.6-32.2) pg MCHC (32.2-35.5) g/dl RDW Std Deviation (36.4-46.3) fL Plt Count (182-369) K/mm3 MPV (9.4-12.3) fl Neut % (Auto) (34.0-71.1) % Lymph % (Auto) (19.3-51.7) % [place] % (Auto) (4.7-12.5) % Eos % (Auto) (0.7-5.8) Baso % (Auto) (0.1-1.2) % Neut # (Auto) (1.56-6.13) K/mm3 Lymph # (Auto) (1.18-3.74) K/mm3 [place] # (Auto) (0.24-0.36) K/mm3 Eos # (Auto) (0.04-0.36) K/mm3 Baso # (Auto) (0.01-0.08) K/mm3 Manual Slide Review Sodium (136-145) mEq/L Potassium (3.5-5.1) mEq/L Chloride (98-107) mEq/L Carbon Dioxide (21-32) mEq/L Anion Gap (5-15) BUN (7-18) mg/dL Creatinine (0.55-1.02) mg/dL Est Cr Clr Drug Dosing mL/min Estimated GFR (MDRD) (>60) mL/min BUN/Creatinine Ratio (14-18) Glucose (74-106) mg/dL POC Glucose 128 H 92 87 (70-105) mg/dL Calcium (8.5-10.1) mg/dL Total Bilirubin (0.2-1.0) mg/dL AST (15-37) U/L ALT (14-59) U/L Alkaline Phosphatase (46-116) U/L Total Protein (6.4-8.2) g/dl Albumin (3.4-5.0) g/dl Globulin gm/dL Albumin/Globulin Ratio (1-2) 08/05/19 08/06/19 08/06/19 Range/Units 22:03 00:02 02:03 WBC (3.98-10.04) K/mm3 RBC (3.98-5.22) M/mm3 Hgb (11.2-15.7) gm/dl Hct (34.1-44.9) % MCV (79.4-94.8) fl MCH (25.6-32.2) pg MCHC (32.2-35.5) g/dl RDW Std Deviation (36.4-46.3) fL Plt Count (182-369) K/mm3 MPV (9.4-12.3) fl Neut % (Auto) (34.0-71.1) % Lymph % (Auto) (19.3-51.7) % [place] % (Auto) (4.7-12.5) % Eos % (Auto) (0.7-5.8) Baso % (Auto) (0.1-1.2) % Neut # (Auto) (1.56-6.13) K/mm3 Lymph # (Auto) (1.18-3.74) K/mm3 [place] # (Auto) (0.24-0.36) K/mm3 Eos # (Auto) (0.04-0.36) K/mm3 Baso # (Auto) (0.01-0.08) K/mm3 Manual Slide Review Sodium (136-145) mEq/L Potassium (3.5-5.1) mEq/L Chloride (98-107) mEq/L Carbon Dioxide (21-32) mEq/L Anion Gap (5-15) BUN (7-18) mg/dL Creatinine (0.55-1.02) mg/dL Est Cr Clr Drug Dosing mL/min Estimated GFR (MDRD) (>60) mL/min BUN/Creatinine Ratio (14-18) Glucose (74-106) mg/dL POC Glucose 80 148 H 77 (70-105) mg/dL Calcium (8.5-10.1) mg/dL Total Bilirubin (0.2-1.0) mg/dL AST (15-37) U/L ALT (14-59) U/L Alkaline Phosphatase (46-116) U/L Total Protein (6.4-8.2) g/dl Albumin (3.4-5.0) g/dl Globulin gm/dL Albumin/Globulin Ratio (1-2) 08/06/19 08/06/19 08/06/19 Range/Units 02:32 03:31 05:16 WBC (3.98-10.04) K/mm3 RBC (3.98-5.22) M/mm3 Hgb (11.2-15.7) gm/dl Hct (34.1-44.9) % MCV (79.4-94.8) fl MCH (25.6-32.2) pg MCHC (32.2-35.5) g/dl RDW Std Deviation (36.4-46.3) fL Plt Count (182-369) K/mm3 MPV (9.4-12.3) fl Neut % (Auto) (34.0-71.1) % Lymph % (Auto) (19.3-51.7) % [place] % (Auto) (4.7-12.5) % Eos % (Auto) (0.7-5.8) Baso % (Auto) (0.1-1.2) % Neut # (Auto) (1.56-6.13) K/mm3 Lymph # (Auto) (1.18-3.74) K/mm3 [place] # (Auto) (0.24-0.36) K/mm3 Eos # (Auto) (0.04-0.36) K/mm3 Baso # (Auto) (0.01-0.08) K/mm3 Manual Slide Review Sodium (136-145) mEq/L Potassium (3.5-5.1) mEq/L Chloride (98-107) mEq/L Carbon Dioxide (21-32) mEq/L Anion Gap (5-15) BUN (7-18) mg/dL Creatinine (0.55-1.02) mg/dL Est Cr Clr Drug Dosing mL/min Estimated GFR (MDRD) (>60) mL/min BUN/Creatinine Ratio (14-18) Glucose (74-106) mg/dL POC Glucose 113 H 95 90 (70-105) mg/dL Calcium (8.5-10.1) mg/dL Total Bilirubin (0.2-1.0) mg/dL AST (15-37) U/L ALT (14-59) U/L Alkaline Phosphatase (46-116) U/L Total Protein (6.4-8.2) g/dl Albumin (3.4-5.0) g/dl Globulin gm/dL Albumin/Globulin Ratio (1-2) 08/06/19 08/06/19 08/06/19 Range/Units 06:44 08:35 09:45 WBC (3.98-10.04) K/mm3 RBC (3.98-5.22) M/mm3 Hgb (11.2-15.7) gm/dl Hct (34.1-44.9) % MCV (79.4-94.8) fl MCH (25.6-32.2) pg MCHC (32.2-35.5) g/dl RDW Std Deviation (36.4-46.3) fL Plt Count (182-369) K/mm3 MPV (9.4-12.3) fl Neut % (Auto) (34.0-71.1) % Lymph % (Auto) (19.3-51.7) % [place] % (Auto) (4.7-12.5) % Eos % (Auto) (0.7-5.8) Baso % (Auto) (0.1-1.2) % Neut # (Auto) (1.56-6.13) K/mm3 Lymph # (Auto) (1.18-3.74) K/mm3 [place] # (Auto) (0.24-0.36) K/mm3 Eos # (Auto) (0.04-0.36) K/mm3 Baso # (Auto) (0.01-0.08) K/mm3 Manual Slide Review Sodium 138 (136-145) mEq/L Potassium 4.5 (3.5-5.1) mEq/L Chloride 105 (98-107) mEq/L Carbon Dioxide 24 (21-32) mEq/L Anion Gap 13.5 (5-15) BUN 16 (7-18) mg/dL Creatinine 0.8 (0.55-1.02) mg/dL Est Cr Clr Drug Dosing 79.42 mL/min Estimated GFR (MDRD) > 60 (>60) mL/min BUN/Creatinine Ratio 20.0 H (14-18) Glucose 161 H (74-106) mg/dL POC Glucose 92 132 H (70-105) mg/dL Calcium 8.4 L (8.5-10.1) mg/dL Total Bilirubin 0.5 (0.2-1.0) mg/dL AST 534 H (15-37) U/L ALT 255 H (14-59) U/L Alkaline Phosphatase 147 H (46-116) U/L Total Protein 5.0 L (6.4-8.2) g/dl Albumin 2.3 L (3.4-5.0) g/dl Globulin 2.7 gm/dL Albumin/Globulin Ratio 0.9 L (1-2) 08/06/19 08/06/19 08/06/19 Range/Units 09:45 11:26 13:27 WBC 1.87 L* (3.98-10.04) K/mm3 RBC 3.51 L (3.98-5.22) M/mm3 Hgb 11.5 (11.2-15.7) gm/dl Hct 35.1 (34.1-44.9) % MCV 100.0 H D (79.4-94.8) fl MCH 32.8 H (25.6-32.2) pg MCHC 32.8 (32.2-35.5) g/dl RDW Std Deviation 44.9 (36.4-46.3) fL Plt Count 223 D (182-369) K/mm3 MPV 10.2 (9.4-12.3) fl Neut % (Auto) 36.4 (34.0-71.1) % Lymph % (Auto) 54.5 H (19.3-51.7) % [place] % (Auto) 6.4 (4.7-12.5) % Eos % (Auto) 1.6 (0.7-5.8) Baso % (Auto) 1.1 (0.1-1.2) % Neut # (Auto) 0.68 L (1.56-6.13) K/mm3 Lymph # (Auto) 1.02 L (1.18-3.74) K/mm3 [place] # (Auto) 0.12 L (0.24-0.36) K/mm3 Eos # (Auto) 0.03 L (0.04-0.36) K/mm3 Baso # (Auto) 0.02 (0.01-0.08) K/mm3 Manual Slide Review Abnormal smear Sodium (136-145) mEq/L Potassium (3.5-5.1) mEq/L Chloride (98-107) mEq/L Carbon Dioxide (21-32) mEq/L Anion Gap (5-15) BUN (7-18) mg/dL Creatinine (0.55-1.02) mg/dL Est Cr Clr Drug Dosing mL/min Estimated GFR (MDRD) (>60) mL/min BUN/Creatinine Ratio (14-18) Glucose (74-106) mg/dL POC Glucose 224 H 114 H (70-105) mg/dL Calcium (8.5-10.1) mg/dL Total Bilirubin (0.2-1.0) mg/dL AST (15-37) U/L ALT (14-59) U/L Alkaline Phosphatase (46-116) U/L Total Protein (6.4-8.2) g/dl Albumin (3.4-5.0) g/dl Globulin gm/dL Albumin/Globulin Ratio (1-2) Med Orders - Current: Current Medications Dextrose/Water (Dextrose 50% In Water) 50 ml IVPUSH ASDIRECTED PRN PRN Reason: Hypoglycemia Last Admin: 08/06/19 02:08 Dose: 25 ml Insulin Human Regular 100 unit (/ Sodium Chloride) 100 mls @ 4.08 mls/hr IV TITRATE STEPHANIE; Protocol Last Titration: 08/05/19 03:45 Dose: 0 units/kg/hr, 0 mls/hr Piperacillin Sod/Tazobactam (Sod 4.5 gm/ Sodium Chloride) 100 mls @ 25 mls/hr IV Q8H STEPHANIE Insulin Glargine (Lantus) 15 unit SUBCUT DAILY [facility] Last Admin: 08/06/19 08:38 Dose: 15 units Insulin Human Lispro (Humalog) 0 unit SUBCUT QIDACANDBED [facility]; Protocol Last Admin: 08/06/19 11:46 Dose: 2 units Ondansetron HCl (Zofran) 4 mg IV Q4H PRN PRN Reason: Nausea/Vomiting Last Admin: 08/05/19 19:27 Dose: 4 mg Pantoprazole Sodium (Protonix) 40 mg PO BIDAC STEPHANIE Sertraline HCl (Zoloft) 100 mg PO DAILY [facility] Last Admin: 08/06/19 08:40 Dose: 100 mg Sodium Chloride (Saline Flush) 10 ml FLUSH ASDIRECTED PRN PRN Reason: Keep Vein Open Last Admin: 08/04/19 12:19 Dose: 10 ml Discontinued Medications Acetaminophen (Tylenol) 650 mg PO NOW ONE Stop: 08/05/19 11:31 Last Admin: 08/05/19 11:53 Dose: 650 mg Enoxaparin Sodium (Lovenox) 40 mg SUBCUT DAILY [facility] Sodium Chloride (Normal Saline) 2,000 mls @ 1,000 mls/hr IV .BOLUS STA Stop: 08/04/19 13:59 Last Admin: 08/04/19 12:15 Dose: 1,000 mls/hr Lactated Ringer's (Ringers, Lactated) 1,000 mls @ 1,000 mls/hr IV .BOLUS ONE Stop: 08/04/19 15:52 Last Admin: 08/04/19 14:57 Dose: 1,000 mls/hr Potassium Chloride/Sodium Chloride (1/2 Ns With 20 Meq Kcl) 1,000 mls @ 250 mls /hr IV [facility] Last Admin: 08/04/19 18:00 Dose: 250 mls/hr Potassium Chloride/Dextrose/Sod Cl (D5 1/2 Ns W/ 20 Meq/L Kcl) 1,000 mls @ 250 mls/hr IV [facility] Last Admin: 08/05/19 05:37 Dose: 250 mls/hr Magnesium Sulfate 2 gm/ Premix 50 mls @ 25 mls/hr IV ONETIME ONE Stop: 08/05/19 02:26 Last Admin: 08/05/19 00:40 Dose: 25 mls/hr Sodium Chloride (Sodium Chloride 0.45%) 1,000 mls @ 125 mls/hr IV [facility] Last Admin: 08/05/19 06:17 Dose: 125 mls/hr Piperacillin Sod/Tazobactam (Sod 4.5 gm/ Sodium Chloride) 100 mls @ 200 mls/hr IV ONETIME ONE Stop: 08/06/19 13:59 Last Admin: 08/06/19 14:27 Dose: 200 mls/hr Insulin Human Lispro (Humalog) 1 unit SUBCUT [facility] Last Admin: 08/05/19 19:38 Dose: Not Given Ketorolac Tromethamine (Toradol) 15 mg IVPUSH ONETIME ONE Stop: 08/05/19 08:31 Last Admin: 08/05/19 08:41 Dose: 15 mg Ondansetron HCl (Zofran) 4 mg IVPUSH ONETIME ONE Stop: 08/04/19 12:01 Last Admin: 08/04/19 12:14 Dose: 4 mg Scopolamine (Transderm-Scop) 1.5 mg TOP ONETIME ONE Stop: 08/05/19 19:46 Last Admin: 08/05/19 20:27 Dose: 1.5 mg - Exam Physical Findings Comments:: General: The patient is awake alert and oriented x3 not in acute distress. HEENT: Atraumatic pupils equally round reactive to light, Oral mucosa moist. Neck: Supple no increased JVD, thyroid appears normal size and consistency. Chest: She does needs assistive muscles for breathing. Lungs: Clear to auscultation without any wheezes rales crackles or rhonchi noted. Heart: Normal S1-S2 heart sounds no murmurs gallops or rubs. Abdomen: Soft, tenderness noted to palpation in the epigastric region bowel sounds present. Extremities: No significant leg swelling noted, no varicose veins palpations of calves nontender. Sepsis Event Note - Evaluation Sepsis Screening Result: No Definite Risk - Focused Exam Vital Signs: Vital Signs Temp Pulse Resp BP Pulse Ox 08/06/19 08:00 97.2 F 79 14 125/99 H 97 08/06/19 03:40 98 F 84 14 123/92 H 98 Date Exam was Performed: 08/06/19 Time Exam was Performed: 16:19 - Problem List Review Problem List Initiated/Reviewed/Updated: Yes - My Orders Last 24 Hours: My Active Orders 08/06/19 16:00 Pantoprazole [ProTONIX] 40 mg PO BIDAC 08/06/19 21:30 Piperacillin/Tazobactam [Piperacil-Tazobact] 4.5 gm Sodium Chloride 0.9% [ Normal Saline] 100 ml IV Q8H 08/07/19 05:11 CBC WITH AUTO DIFF [HEME] AM CMP [COMPREHENSIVE METABOLIC PN,CMP] [CHEM] AM 08/07/19 08:00 HIDA with EF [Cholescintigraphy w Pharm Int] [NM] Timed 08/08/19 05:11 CMP [COMPREHENSIVE METABOLIC PN,CMP] [CHEM] AM 08/09/19 05:11 CMP [COMPREHENSIVE METABOLIC PN,CMP] [CHEM] AM - Assessment Assessment:: Diabetic ketoacidosis: The patient was admitted for DKA. Fortunately the patient's gap has since closed. Patient has been transitioned to subcutaneous insulins. But the patient's blood glucose been uncontrolled in the sense that has been up and down given patient's decreased p.o. intake. Fasting blood glucose today 94. Patient was started on subcutaneous insulin with Lantus 15 units we will continue continue current sliding scale. Elevated transaminase possibly secondary to cholecystitis: Still reporting tenderness in epigastric region, still reports occasional nausea despite the patient states nausea has since improved. But the patient's was found to be significantly elevated with AST/ALT 534/255 and alk phosphatase 147, nearly total bilirubin 0.5. Ultrasound was done to the patient was no concern for any acute findings. But given high suspicion for abnormal/dysfunctional gallbladder , will be on Zosyn will request HIDA scan to evaluate patient's ejection fraction which I believe is the patient's cause of decreased p.o. intake which precipitates uncontrolled blood glucose. Denture cause could be gastroparesis but will evaluate gallbladder for now. Neutropenia: Today, the patient's WBC 1.87, neutrophils 0.68 lymphocytes 1.0 will be on antibiotics as above, if the patient's WBC less than 1.5, will consider putting the patient on reverse isolation. G:I Prophylaxis: She will be on Protonix grams p.o. twice daily AC carafate 2gm qhs. DVT prophylaxis: Lovenox 40 mg subcu every 24. Nausea: Zofran 4 mg as needed nausea. Depression: Continue Zoloft 100 mg p.o. daily. - Plan Plan:: Assessment Day of admission 29-year-old type I diabetic returned from vacation in [place] yesterday and was hospitalized for nausea, vomiting, hyperglycemia last week for 3 days. Patient brought in for worsening mental status and high blood sugars by her . * DKA * Initial blood sugar 870, ketones 17 * Unknown precipitating factor. * Significant acidosis: ABG: pH 7.0, PCO2 9.3, PO2 125, HCO3 2.2 * Severe hypovolemia with corrected sodium of 161, serum osmolality 370 * Acute renal injury * BUN 24, creatinine 1.4, estimated GFR 45 * Possible gastroparesis * History of recurrent vomiting 1 to 2 hours after eating since last December. * Complains of a feeling of fullness 1 to 2 hours after eating * Elevated liver enzymes * AST 250, ALT 190, alkaline phosphatase 286, total bilirubin 0.8 Day 1 * Patient came out of DKA overnight and closed her anion gap. * Switch over to subcu insulin today. * She states she has had at least 2 previous scans of her abdomen. Review of the CT scan done in March 2019 for generalized abdominal pain shows: 1. Mild increased stool throughout the colon. 2. No additional abnormalities appreciated on CT study of the abdomen and pelvis. No acute abnormality is appreciated. * She would like to advance to a regular diet, although she is likely to have difficulty eating secondary to her recurrent nausea and vomiting. Plan * Admit to ICU for DKA protocol. * BMP, magnesium, phosphorus in the morning. * Start diabetic diet. * Lantus 15 units daily. This is below her previous home dose of 27 units and also below her discharge dose from [place] of 19 units. 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 It will be easier to follow her blood sugars closely here in the hospital. * Change to subcutaneous insulin. Start sliding scale insulin and post prandial insulin. Postprandial insulin 1 unit if she eats 80% of her meal or more. This will likely be too low of a dose, but we can cover her with a sliding scale. * Abdominal ultrasound in the morning. * Patient may need further work-up for gastroparesis. * Consult paraeducator * Consult dietitian Prophylaxis: Compression stockings CODE STATUS: Full code Disposition: Monitor in the ICU for close watch of her oral intake and blood sugars.
[2019-08-06] MEDS: Pantoprazole 40 MG Tab.CR PO SCH (16:31)
[2019-08-06] MEDS: Sucralfate 1 GM Tab PO SCH (20:07)
[2019-08-06] MEDS: Piperacillin/Tazobactam 4.5 GM in Sodium Chloride 0.9% 100 ML IV SCH (22:14)
[2019-08-07] MEDS: Piperacillin/Tazobactam 4.5 GM in Sodium Chloride 0.9% 100 ML IV SCH ×3 (06:13→22:15)
[2019-08-07] MEDS: Pantoprazole 40 MG Tab.CR PO SCH ×2 (06:14→16:06)
[2019-08-07] MEDS: Insulin Lispro 100 Units/ML 3 ML Vial SUBCUT SCH ×4 (06:24→22:42)
[2019-08-07] MEDS ORDERED: Albumin 25% 12.5 GM/50 ML BAG IV ONE (07:27)
[2019-08-07] MEDS: Insulin Glarg,Human.Rec.Analog 100 Unit/ML SUBCUT SCH (08:07)
[2019-08-07] MEDS: Sertraline 50 MG Tab PO SCH (08:07)
--- NOTE | 2019-08-07 09:01 | PN ---
DATE OF SERVICE: 08/06/2019 ADDENDUM: The patient was seen, examined, and discussed by me with Sohan Mendoza PA-C. The patient is a 29-year-old female with past medical history significant for diabetes type 1, was admitted to the hospital on August 04, 2019, from emergency room where the patient presented with abdominal pain, nausea, vomiting, and was found to be in DKA. Further questioning revealed that the patient is from [place]. She was found with diabetes a long time ago, but diabetes was really well controlled with normal hemoglobin A1c. For now, hemoglobin A1c is very high, and since December, the patient keeps getting abdominal pain and worsening of her diabetes. Prior to this, the patient was following ketogenic diet and lost significant weight. On this admission, after DKA resolved, the patient still has epigastric and right upper quadrant pain with positive Snider sign. No nausea or vomiting at this moment. The patient was able to tolerate at least full liquid diet. No fevers. White blood cells normal. The patient did have abdomen ultrasound done today that did not show any kidney stones but found the patient with small 1.5 cm hyperechoic area within anterior liver, which is most likely benign, but followup study with ultrasound was recommended. Even given nonacute results of right upper quadrant ultrasound, suspicion for gallbladder disease is very strong in this lady. The patient is still very symptomatic and I feel we will need to do HIDA scan. If HIDA scan positive for gallbladder disease and the patient is still symptomatic, surgical consult will be requested. If HIDA scan shows normal gallbladder ejection fraction, that I believe is very unlikely, then we will go ahead with further testing for gastroparesis. The patient will stay in house. Her condition remains not clear and worrisome. Surgical intervention might be required. For details of the patient's review of systems, interval test results, physical exam, medications, and further care of management, please see note prepared by Sohan Mendoza PA-C. MMHARPREET /[id number]
--- NOTE | 2019-08-07 11:07 | NM ---
Biliary HIDA scan with ejection fraction Technique: 2.8 mCi of technetium 99m mebrofenin was given intravenously. Scintigraphic imaging then obtained over the upper abdomen. During the study, 3 ounces of heavy whipping cream was given with 1 teaspoon of sugar. Continued scintigraphic imaging was performed. Comparison: Prior abdominal ultrasound of 08/06/19. Findings: Normal activity is seen within gallbladder and within small bowel. Gallbladder ejection fraction is normal at 55 percent. Impression: 1. Normal biliary HIDA scan with normal gallbladder ejection fraction. Diagnostic code #1 This report was dictated in MDT
--- NOTE | 2019-08-07 11:17 | PCM.PN ---
- General Info Date of Service: 08/07/19 - Review of Systems Systems Review Comment:: The patient was seen and examined by me, discussed with Dr. Johnson. At the time of my exam, the patient was resting in bed. I discussed with patient about current test results and concerns of her neutropenia with ANC today be less than 5. Concerned that there is high suspicion for infection given the patient's persistent epigastric/right upper quadrant pain with reports after eating. Fortunately patient has not had any fevers, yesterday patient was started on antibiotics with Zosyn. Today albumin also on the lower side as low as 2.2. Otherwise vital signs remained relatively stable T-max 98.4 pulse 98 blood pressure 123/83. Concern from nursing staff is that the patient is to concern about her weight with suspicion for intentional weight loss in a patient who is malnourished. - Patient Data Vitals - Most Recent: Last Vital Signs Temp 98.4 F 08/07/19 09:19 Pulse 60 08/07/19 09:19 Resp 14 08/07/19 09:19 BP 124/81 08/07/19 09:19 Pulse Ox 97 08/07/19 09:19 Weight - Most Recent: 106 lb 11.2 oz I&O - Last 24 Hours: Intake & Output 08/06/19 08/07/19 08/07/19 22:59 06:59 14:59 Intake Total 100 700 Balance 100 700 Lab Results Last 24 Hours: Laboratory Results - last 24 hr 08/06/19 08/06/19 08/06/19 Range/Units 09:45 11:26 13:27 WBC (3.98-10.04) K/mm3 RBC (3.98-5.22) M/mm3 Hgb (11.2-15.7) gm/dl Hct (34.1-44.9) % MCV (79.4-94.8) fl MCH (25.6-32.2) pg MCHC (32.2-35.5) g/dl RDW Std Deviation (36.4-46.3) fL Plt Count (182-369) K/mm3 MPV (9.4-12.3) fl Neut % (Auto) (34.0-71.1) % Lymph % (Auto) (19.3-51.7) % [place] % (Auto) (4.7-12.5) % Eos % (Auto) (0.7-5.8) Baso % (Auto) (0.1-1.2) % Neut # (Auto) (1.56-6.13) K/mm3 Lymph # (Auto) (1.18-3.74) K/mm3 [place] # (Auto) (0.24-0.36) K/mm3 Eos # (Auto) (0.04-0.36) K/mm3 Baso # (Auto) (0.01-0.08) K/mm3 Manual Slide Review Abnormal smear Sodium (136-145) mEq/L Potassium (3.5-5.1) mEq/L Chloride (98-107) mEq/L Carbon Dioxide (21-32) mEq/L Anion Gap (5-15) BUN (7-18) mg/dL Creatinine (0.55-1.02) mg/dL Est Cr Clr Drug Dosing mL/min Estimated GFR (MDRD) (>60) mL/min BUN/Creatinine Ratio (14-18) Glucose (74-106) mg/dL POC Glucose 224 H 114 H (70-105) mg/dL Calcium (8.5-10.1) mg/dL Total Bilirubin (0.2-1.0) mg/dL AST (15-37) U/L ALT (14-59) U/L Alkaline Phosphatase (46-116) U/L Total Protein (6.4-8.2) g/dl Albumin (3.4-5.0) g/dl Globulin gm/dL Albumin/Globulin Ratio (1-2) 08/06/19 08/06/19 08/06/19 Range/Units 16:30 18:14 20:06 WBC (3.98-10.04) K/mm3 RBC (3.98-5.22) M/mm3 Hgb (11.2-15.7) gm/dl Hct (34.1-44.9) % MCV (79.4-94.8) fl MCH (25.6-32.2) pg MCHC (32.2-35.5) g/dl RDW Std Deviation (36.4-46.3) fL Plt Count (182-369) K/mm3 MPV (9.4-12.3) fl Neut % (Auto) (34.0-71.1) % Lymph % (Auto) (19.3-51.7) % [place] % (Auto) (4.7-12.5) % Eos % (Auto) (0.7-5.8) Baso % (Auto) (0.1-1.2) % Neut # (Auto) (1.56-6.13) K/mm3 Lymph # (Auto) (1.18-3.74) K/mm3 [place] # (Auto) (0.24-0.36) K/mm3 Eos # (Auto) (0.04-0.36) K/mm3 Baso # (Auto) (0.01-0.08) K/mm3 Manual Slide Review Sodium (136-145) mEq/L Potassium (3.5-5.1) mEq/L Chloride (98-107) mEq/L Carbon Dioxide (21-32) mEq/L Anion Gap (5-15) BUN (7-18) mg/dL Creatinine (0.55-1.02) mg/dL Est Cr Clr Drug Dosing mL/min Estimated GFR (MDRD) (>60) mL/min BUN/Creatinine Ratio (14-18) Glucose (74-106) mg/dL POC Glucose 92 76 72 (70-105) mg/dL Calcium (8.5-10.1) mg/dL Total Bilirubin (0.2-1.0) mg/dL AST (15-37) U/L ALT (14-59) U/L Alkaline Phosphatase (46-116) U/L Total Protein (6.4-8.2) g/dl Albumin (3.4-5.0) g/dl Globulin gm/dL Albumin/Globulin Ratio (1-2) 08/06/19 08/06/19 08/06/19 Range/Units 20:59 21:25 22:15 WBC (3.98-10.04) K/mm3 RBC (3.98-5.22) M/mm3 Hgb (11.2-15.7) gm/dl Hct (34.1-44.9) % MCV (79.4-94.8) fl MCH (25.6-32.2) pg MCHC (32.2-35.5) g/dl RDW Std Deviation (36.4-46.3) fL Plt Count (182-369) K/mm3 MPV (9.4-12.3) fl Neut % (Auto) (34.0-71.1) % Lymph % (Auto) (19.3-51.7) % [place] % (Auto) (4.7-12.5) % Eos % (Auto) (0.7-5.8) Baso % (Auto) (0.1-1.2) % Neut # (Auto) (1.56-6.13) K/mm3 Lymph # (Auto) (1.18-3.74) K/mm3 [place] # (Auto) (0.24-0.36) K/mm3 Eos # (Auto) (0.04-0.36) K/mm3 Baso # (Auto) (0.01-0.08) K/mm3 Manual Slide Review Sodium (136-145) mEq/L Potassium (3.5-5.1) mEq/L Chloride (98-107) mEq/L Carbon Dioxide (21-32) mEq/L Anion Gap (5-15) BUN (7-18) mg/dL Creatinine (0.55-1.02) mg/dL Est Cr Clr Drug Dosing mL/min Estimated GFR (MDRD) (>60) mL/min BUN/Creatinine Ratio (14-18) Glucose (74-106) mg/dL POC Glucose 69 L 116 H 102 (70-105) mg/dL Calcium (8.5-10.1) mg/dL Total Bilirubin (0.2-1.0) mg/dL AST (15-37) U/L ALT (14-59) U/L Alkaline Phosphatase (46-116) U/L Total Protein (6.4-8.2) g/dl Albumin (3.4-5.0) g/dl Globulin gm/dL Albumin/Globulin Ratio (1-2) 08/07/19 08/07/19 08/07/19 Range/Units 00:15 01:56 04:01 WBC (3.98-10.04) K/mm3 RBC (3.98-5.22) M/mm3 Hgb (11.2-15.7) gm/dl Hct (34.1-44.9) % MCV (79.4-94.8) fl MCH (25.6-32.2) pg MCHC (32.2-35.5) g/dl RDW Std Deviation (36.4-46.3) fL Plt Count (182-369) K/mm3 MPV (9.4-12.3) fl Neut % (Auto) (34.0-71.1) % Lymph % (Auto) (19.3-51.7) % [place] % (Auto) (4.7-12.5) % Eos % (Auto) (0.7-5.8) Baso % (Auto) (0.1-1.2) % Neut # (Auto) (1.56-6.13) K/mm3 Lymph # (Auto) (1.18-3.74) K/mm3 [place] # (Auto) (0.24-0.36) K/mm3 Eos # (Auto) (0.04-0.36) K/mm3 Baso # (Auto) (0.01-0.08) K/mm3 Manual Slide Review Sodium (136-145) mEq/L Potassium (3.5-5.1) mEq/L Chloride (98-107) mEq/L Carbon Dioxide (21-32) mEq/L Anion Gap (5-15) BUN (7-18) mg/dL Creatinine (0.55-1.02) mg/dL Est Cr Clr Drug Dosing mL/min Estimated GFR (MDRD) (>60) mL/min BUN/Creatinine Ratio (14-18) Glucose (74-106) mg/dL POC Glucose 95 107 H 100 (70-105) mg/dL Calcium (8.5-10.1) mg/dL Total Bilirubin (0.2-1.0) mg/dL AST (15-37) U/L ALT (14-59) U/L Alkaline Phosphatase (46-116) U/L Total Protein (6.4-8.2) g/dl Albumin (3.4-5.0) g/dl Globulin gm/dL Albumin/Globulin Ratio (1-2) 08/07/19 08/07/19 08/07/19 Range/Units 05:33 05:33 06:18 WBC 1.44 L* (3.98-10.04) K/mm3 RBC 3.23 L (3.98-5.22) M/mm3 Hgb 10.7 L (11.2-15.7) gm/dl Hct 32.8 L (34.1-44.9) % MCV 101.5 H (79.4-94.8) fl MCH 33.1 H (25.6-32.2) pg MCHC 32.6 (32.2-35.5) g/dl RDW Std Deviation 45.2 (36.4-46.3) fL Plt Count 194 (182-369) K/mm3 MPV 10.2 (9.4-12.3) fl Neut % (Auto) 22.2 L (34.0-71.1) % Lymph % (Auto) 62.5 H (19.3-51.7) % [place] % (Auto) 11.1 (4.7-12.5) % Eos % (Auto) 2.1 (0.7-5.8) Baso % (Auto) 1.4 H (0.1-1.2) % Neut # (Auto) 0.32 L (1.56-6.13) K/mm3 Lymph # (Auto) 0.90 L (1.18-3.74) K/mm3 [place] # (Auto) 0.16 L (0.24-0.36) K/mm3 Eos # (Auto) 0.03 L (0.04-0.36) K/mm3 Baso # (Auto) 0.02 (0.01-0.08) K/mm3 Manual Slide Review Abnormal smear Sodium 143 (136-145) mEq/L Potassium 4.7 (3.5-5.1) mEq/L Chloride 107 (98-107) mEq/L Carbon Dioxide 29 (21-32) mEq/L Anion Gap 11.7 (5-15) BUN 15 (7-18) mg/dL Creatinine 0.6 (0.55-1.02) mg/dL Est Cr Clr Drug Dosing 106.39 mL/min Estimated GFR (MDRD) > 60 (>60) mL/min BUN/Creatinine Ratio 25.0 H (14-18) Glucose 102 (74-106) mg/dL POC Glucose 95 (70-105) mg/dL Calcium 8.1 L (8.5-10.1) mg/dL Total Bilirubin 0.6 (0.2-1.0) mg/dL AST 654 H (15-37) U/L ALT 285 H (14-59) U/L Alkaline Phosphatase 144 H (46-116) U/L Total Protein 5.1 L (6.4-8.2) g/dl Albumin 2.2 L (3.4-5.0) g/dl Globulin 2.9 gm/dL Albumin/Globulin Ratio 0.8 L (1-2) 08/07/19 08/07/19 Range/Units 08:06 10:59 WBC (3.98-10.04) K/mm3 RBC (3.98-5.22) M/mm3 Hgb (11.2-15.7) gm/dl Hct (34.1-44.9) % MCV (79.4-94.8) fl MCH (25.6-32.2) pg MCHC (32.2-35.5) g/dl RDW Std Deviation (36.4-46.3) fL Plt Count (182-369) K/mm3 MPV (9.4-12.3) fl Neut % (Auto) (34.0-71.1) % Lymph % (Auto) (19.3-51.7) % [place] % (Auto) (4.7-12.5) % Eos % (Auto) (0.7-5.8) Baso % (Auto) (0.1-1.2) % Neut # (Auto) (1.56-6.13) K/mm3 Lymph # (Auto) (1.18-3.74) K/mm3 [place] # (Auto) (0.24-0.36) K/mm3 Eos # (Auto) (0.04-0.36) K/mm3 Baso # (Auto) (0.01-0.08) K/mm3 Manual Slide Review Sodium (136-145) mEq/L Potassium (3.5-5.1) mEq/L Chloride (98-107) mEq/L Carbon Dioxide (21-32) mEq/L Anion Gap (5-15) BUN (7-18) mg/dL Creatinine (0.55-1.02) mg/dL Est Cr Clr Drug Dosing mL/min Estimated GFR (MDRD) (>60) mL/min BUN/Creatinine Ratio (14-18) Glucose (74-106) mg/dL POC Glucose 110 H 61 L (70-105) mg/dL Calcium (8.5-10.1) mg/dL Total Bilirubin (0.2-1.0) mg/dL AST (15-37) U/L ALT (14-59) U/L Alkaline Phosphatase (46-116) U/L Total Protein (6.4-8.2) g/dl Albumin (3.4-5.0) g/dl Globulin gm/dL Albumin/Globulin Ratio (1-2) Med Orders - Current: Current Medications Dextrose/Water (Dextrose 50% In Water) 50 ml IVPUSH ASDIRECTED PRN PRN Reason: Hypoglycemia Last Admin: 08/06/19 21:05 Dose: 25 ml Insulin Human Regular 100 unit (/ Sodium Chloride) 100 mls @ 4.08 mls/hr IV TITRATE [facility]; Protocol Last Titration: 08/05/19 03:45 Dose: 0 units/kg/hr, 0 mls/hr Piperacillin Sod/Tazobactam (Sod 4.5 gm/ Sodium Chloride) 100 mls @ 25 mls/hr IV Q8H [facility] Last Admin: 08/07/19 06:13 Dose: 25 mls/hr Insulin Glargine (Lantus) 8 unit SUBCUT DAILY [facility] Insulin Human Lispro (Humalog) 0 unit SUBCUT QIDACANDBED [facility]; Protocol Last Admin: 08/07/19 06:24 Dose: Not Given Ondansetron HCl (Zofran) 4 mg IV Q4H PRN PRN Reason: Nausea/Vomiting Last Admin: 08/05/19 19:27 Dose: 4 mg Pantoprazole Sodium (Protonix) 40 mg PO BIDAC [facility] Last Admin: 08/07/19 06:14 Dose: 40 mg Sertraline HCl (Zoloft) 100 mg PO DAILY [facility] Last Admin: 08/07/19 08:07 Dose: 100 mg Sodium Chloride (Saline Flush) 10 ml FLUSH ASDIRECTED PRN PRN Reason: Keep Vein Open Last Admin: 08/04/19 12:19 Dose: 10 ml Sucralfate (Carafate) 2 gm PO BEDTIME [facility] Last Admin: 08/06/19 20:07 Dose: 2 gm Discontinued Medications Acetaminophen (Tylenol) 650 mg PO NOW ONE Stop: 08/05/19 11:31 Last Admin: 08/05/19 11:53 Dose: 650 mg Enoxaparin Sodium (Lovenox) 40 mg SUBCUT DAILY [facility] Sodium Chloride (Normal Saline) 2,000 mls @ 1,000 mls/hr IV .BOLUS STA Stop: 08/04/19 13:59 Last Admin: 08/04/19 12:15 Dose: 1,000 mls/hr Lactated Ringer's (Ringers, Lactated) 1,000 mls @ 1,000 mls/hr IV .BOLUS ONE Stop: 08/04/19 15:52 Last Admin: 08/04/19 14:57 Dose: 1,000 mls/hr Potassium Chloride/Sodium Chloride (1/2 Ns With 20 Meq Kcl) 1,000 mls @ 250 mls /hr IV ASDIRECTED [facility] Last Admin: 08/04/19 18:00 Dose: 250 mls/hr Potassium Chloride/Dextrose/Sod Cl (D5 1/2 Ns W/ 20 Meq/L Kcl) 1,000 mls @ 250 mls/hr IV ASDIRECTED [facility] Last Admin: 08/05/19 05:37 Dose: 250 mls/hr Magnesium Sulfate 2 gm/ Premix 50 mls @ 25 mls/hr IV ONETIME ONE Stop: 08/05/19 02:26 Last Admin: 08/05/19 00:40 Dose: 25 mls/hr Sodium Chloride (Sodium Chloride 0.45%) 1,000 mls @ 125 mls/hr IV ASDIRECTED [facility] Last Admin: 08/05/19 06:17 Dose: 125 mls/hr Piperacillin Sod/Tazobactam (Sod 4.5 gm/ Sodium Chloride) 100 mls @ 200 mls/hr IV ONETIME ONE Stop: 08/06/19 13:59 Last Admin: 08/06/19 14:27 Dose: 200 mls/hr Albumin Human (Flexbumin 25%) 12.5 gm in 50 mls @ 100 mls/hr IV ONETIME ONE Stop: 08/07/19 07:56 Last Admin: 08/07/19 08:06 Dose: 100 mls/hr Insulin Glargine (Lantus) 15 unit SUBCUT DAILY [facility] Last Admin: 08/07/19 08:07 Dose: 15 units Insulin Human Lispro (Humalog) 1 unit SUBCUT TIDPC [facility] Last Admin: 08/05/19 19:38 Dose: Not Given Ketorolac Tromethamine (Toradol) 15 mg IVPUSH ONETIME ONE Stop: 08/05/19 08:31 Last Admin: 08/05/19 08:41 Dose: 15 mg Ondansetron HCl (Zofran) 4 mg IVPUSH ONETIME ONE Stop: 08/04/19 12:01 Last Admin: 08/04/19 12:14 Dose: 4 mg Scopolamine (Transderm-Scop) 1.5 mg TOP ONETIME ONE Stop: 08/05/19 19:46 Last Admin: 08/05/19 20:27 Dose: 1.5 mg - Exam Physical Findings Comments:: General: The patient is awake alert and oriented x3 not in acute distress. HEENT: Atraumatic pupils equally round reactive to light, Oral mucosa moist. Neck: Supple no increased JVD, thyroid appears normal size and consistency. Chest: She does needs assistive muscles for breathing. Lungs: Clear to auscultation without any wheezes rales crackles or rhonchi noted. Heart: Normal S1-S2 heart sounds no murmurs gallops or rubs. Abdomen: Soft, tenderness noted to palpation in the epigastric region bowel sounds present. Extremities: No significant leg swelling noted, no varicose veins palpations of calves nontender. Sepsis Event Note - Evaluation Sepsis Screening Result: No Definite Risk - Focused Exam Vital Signs: Vital Signs Temp Pulse Resp BP Pulse Ox 08/07/19 09:19 98.4 F 60 14 124/81 97 08/07/19 04:00 98.4 F 60 14 123/83 97 Date Exam was Performed: 08/07/19 Time Exam was Performed: 11:08 - Problem List Review Problem List Initiated/Reviewed/Updated: Yes - My Orders Last 24 Hours: My Active Orders 08/06/19 16:00 Pantoprazole [ProTONIX] 40 mg PO BIDAC 08/06/19 21:00 Sucralfate [Carafate] 2 gm PO BEDTIME 08/06/19 22:30 Piperacillin/Tazobactam [Piperacil-Tazobact] 4.5 gm Sodium Chloride 0.9% [ Normal Saline] 100 ml IV Q8H 08/07/19 08:22 HEPATITIS PANEL (4) [REF] Routine 08/07/19 08:35 MISC TEST Routine 08/08/19 05:11 CBC WITH AUTO DIFF [HEME] AM CMP [COMPREHENSIVE METABOLIC PN,CMP] [CHEM] AM CMP [COMPREHENSIVE METABOLIC PN,CMP] [CHEM] AM 08/09/19 05:11 CMP [COMPREHENSIVE METABOLIC PN,CMP] [CHEM] AM CMP [COMPREHENSIVE METABOLIC PN,CMP] [CHEM] AM 08/10/19 05:11 CMP [COMPREHENSIVE METABOLIC PN,CMP] [CHEM] AM - Assessment Assessment:: Assessment and plan Neutropenia: Today, the patient's WBC 1.44 as compared to 1.87 with neutrophils of 0.32 as compared to 1.87 and neutrophils of 0.68 yesterday. In the settings , I highly suspect infection given the patient's elevated liver enzymes, reports of nausea. Patient was started on antibiotics yesterday with Zosyn we will continue this medication in the meantime HIDA scan was requested for further evaluation, peripheral blood smear also requested. Will be on reverse isolation. Elevated transaminase possibly secondary to cholecystitis: She is still reports epigastric discomfort, reports nausea but no obvious vomiting. Today liver enzymes remains elevated AST/ALT 654/285 as compared to 534/255 yesterday, alkaline phosphatase went elevated as well. But fortunately the patient's bilirubin normal. Patient will be going for HIDA scan today, will follow up on report of HIDA scan. Will request acute hepatitis panel, continue antibiotics as above. Protein calorie malnutrition: Noted with signs of protein calorie malnutrition, today the patient's albumin 2.2 as compared to 2.3 yesterday. For now, we will give the patient to 25 g of albumin, by pricing strategist, patient will be started on Glucerna and high-protein calorie diet Diabetic ketoacidosis was resolved/type 1 diabetes: Patient's gap had since closed. Insulin drip discontinued about 72 hours ago but the patient at night has been having episodes of hypoglycemia requiring dextrose. Given the patient' s decreased p.o. intake Lantus was decreased from 15 to 8 units, continue current dose of sliding scale. Continue fingersticks per protocol. G:I Prophylaxis: She will be on Protonix grams p.o. twice daily AC carafate 2gm qhs. DVT prophylaxis: Lovenox 40 mg subcu every 24. Nausea: Zofran 4 mg as needed nausea. Depression: Continue Zoloft 100 mg p.o. daily. Disposition: Patient's condition is concerning for persistent neutropenia, worsening liver enzymes as well as decreased p.o. intake due to nausea. Follow- up on HIDA scan, follow-up on acute hepatitis panel as well as peripheral blood smear. - Plan Plan:: .
[2019-08-07] MEDS ORDERED: Aluminum Hydroxide/Magnesium Hydroxide/Simethicone Susp 30 ML Cup PO PRN (12:38)
--- NOTE | 2019-08-07 14:42 | PN ---
DATE OF SERVICE: 08/07/2019 ADDENDUM: The patient was seen, examined, and discussed by me with Sohan Mendoza PA-C. Ms. Graves condition remains worrisome. The patient still has very poor appetite. She does have nausea and some abdominal, epigastric, and right upper quadrant pain. Yesterday, we started the patient on Zosyn in concern of possible cholecystitis. The patient is afebrile, but white blood cells came down to only 1.44 with 22% of neutrophils, so reversal neutropenic precautions will be applied to the patient, and we will closely watch further development of situation. Given so low white blood cells while having normal platelets and H and H and some tendency for lymphocystosis, we also sent peripheral smear, and if needed, we will do flow cytometry later, and we will send the patient's acute hepatitis panel. HIDA scan was done today, but report is not available at the time of dictation of this note and will be attentively researched once available. The patient will stay in house. For details of the patient's review of systems, interval test results, physical exam, medications, and further plan of management, please see note prepared by Sohan Mendoza PA-C. MMODAL /[id number]
[2019-08-07] MEDS: Sucralfate 1 GM Tab PO SCH (21:26)
[2019-08-07] MEDS: Ondansetron 4 MG/2 ML SDV IV PRN (22:35)
[2019-08-08] MEDS: Piperacillin/Tazobactam 4.5 GM in Sodium Chloride 0.9% 100 ML IV SCH ×3 (05:47→22:14)
[2019-08-08] MEDS: Pantoprazole 40 MG Tab.CR PO SCH ×2 (05:48→16:10)
[2019-08-08] MEDS: Insulin Lispro 100 Units/ML 3 ML Vial SUBCUT SCH ×6 (08:05→23:33)
[2019-08-08] MEDS: Insulin Glarg,Human.Rec.Analog 100 Unit/ML SUBCUT SCH (08:06)
[2019-08-08] MEDS: Sertraline 50 MG Tab PO SCH (08:06)
--- NOTE | 2019-08-08 09:33 | PN ---
DATE OF SERVICE: 08/08/2019 The patient was seen, examined, and discussed by me with Sohan Mendoza PA-C. The patient last night after a meal, had episode of nausea, relieved with Zofran. The night the patient spent uneventfully. No fevers. No chills. White blood cells today still very low at 1.51 with 32% of neutrophils that still falls in the criteria for neutropenia. The patient will stay on the neutropenic precautions. The patient's LFTs remain elevated. There is very minimal improvement of AST from 620 to 520. ALT remains elevated around 219, alkaline phosphatase is 144, but bilirubin is normal. We are still awaiting the results of acute hepatitis panel that was requested yesterday. HIDA scan was done yesterday and did not reveal any gallbladder problems. So for now, we are more concentrated on potential gastroparesis as a reason for the patient's severe pain syndrome and elevated LFTs. If gastric emptying study comes back normal, we will request surgical consult for upper GI endoscopy in concern of potential peptic ulcer disease. We will also request H. pylori serology. For details of the patient's review of systems, interval test results, physical exam, medications, and further plan of management, please see note prepared by Sohan Mendoza PA-C. CHALO /[id number]
--- NOTE | 2019-08-08 11:31 | PCM.PN ---
- General Info Date of Service: 08/08/19 - Review of Systems Systems Review Comment:: Patient was seen and examined by me, and discussed with Dr. JEREZ. At time of my exam, patient resting in bed. Does not appear to be in acute distress. Last night, patient had one episode of nausea this morning patient so far has not had episodes of nausea. Fortunately patient's WBC appears to be improving. HIDA scan that was done to the patient yesterday indicated normal ejection fraction. At this time, I believe because of patient's persistent nausea could be due to gastroparesis. And because of neutropenia due to viral infection which also contributed to the patient's DKA. Otherwise, no other acute complaints noted liver enzymes trending down slightly compared to yesterday no fevers no chills. no chest pain or palpitations patient did not require dextrose overnight. Nursing staff did not report any other acute complaints. - Patient Data Vitals - Most Recent: Last Vital Signs Temp 98.1 F 08/08/19 08:15 Pulse 63 08/08/19 08:15 Resp 19 08/08/19 08:15 BP 127/93 H 08/08/19 08:15 Pulse Ox 99 08/08/19 08:15 Weight - Most Recent: 112 lb I&O - Last 24 Hours: Intake & Output 08/07/19 08/08/19 08/08/19 22:59 06:59 14:59 Intake Total 600 100 Balance 600 100 Lab Results Last 24 Hours: Laboratory Results - last 24 hr 08/05/19 08/07/19 08/07/19 Range/Units 13:15 05:33 11:56 WBC 1.44 L* (3.98-10.04) K/mm3 RBC 3.23 L (3.98-5.22) M/mm3 Hgb 10.7 L (11.2-15.7) gm/dl Hct 32.8 L (34.1-44.9) % MCV 101.5 H (79.4-94.8) fl MCH 33.1 H (25.6-32.2) pg MCHC 32.6 (32.2-35.5) g/dl RDW Std Deviation 45.2 (36.4-46.3) fL Plt Count 194 (182-369) K/mm3 MPV 10.2 (9.4-12.3) fl Neut % (Auto) 22.2 L (34.0-71.1) % Lymph % (Auto) 62.5 H (19.3-51.7) % Miner % (Auto) 11.1 (4.7-12.5) % Eos % (Auto) 2.1 (0.7-5.8) Baso % (Auto) 1.4 H (0.1-1.2) % Neut # (Auto) 0.32 L (1.56-6.13) K/mm3 Lymph # (Auto) 0.90 L (1.18-3.74) K/mm3 Miner # (Auto) 0.16 L (0.24-0.36) K/mm3 Eos # (Auto) 0.03 L (0.04-0.36) K/mm3 Baso # (Auto) 0.02 (0.01-0.08) K/mm3 Manual Slide Review Abnormal smear Percent Retic 1.03 (0.50-1.70) % Sodium (136-145) mEq/L Potassium (3.5-5.1) mEq/L Chloride (98-107) mEq/L Carbon Dioxide (21-32) mEq/L Anion Gap (5-15) BUN (7-18) mg/dL Creatinine (0.55-1.02) mg/dL Est Cr Clr Drug Dosing mL/min Estimated GFR (MDRD) (>60) mL/min BUN/Creatinine Ratio (14-18) Glucose (74-106) mg/dL POC Glucose 67 L (70-105) mg/dL Calcium (8.5-10.1) mg/dL Total Bilirubin (0.2-1.0) mg/dL AST (15-37) U/L ALT (14-59) U/L Alkaline Phosphatase (46-116) U/L Total Protein (6.4-8.2) g/dl Albumin (3.4-5.0) g/dl Globulin gm/dL Albumin/Globulin Ratio (1-2) Miscellaneous Test See scanned report 08/07/19 08/07/19 08/07/19 Range/Units 13:57 15:52 17:48 WBC (3.98-10.04) K/mm3 RBC (3.98-5.22) M/mm3 Hgb (11.2-15.7) gm/dl Hct (34.1-44.9) % MCV (79.4-94.8) fl MCH (25.6-32.2) pg MCHC (32.2-35.5) g/dl RDW Std Deviation (36.4-46.3) fL Plt Count (182-369) K/mm3 MPV (9.4-12.3) fl Neut % (Auto) (34.0-71.1) % Lymph % (Auto) (19.3-51.7) % Miner % (Auto) (4.7-12.5) % Eos % (Auto) (0.7-5.8) Baso % (Auto) (0.1-1.2) % Neut # (Auto) (1.56-6.13) K/mm3 Lymph # (Auto) (1.18-3.74) K/mm3 Miner # (Auto) (0.24-0.36) K/mm3 Eos # (Auto) (0.04-0.36) K/mm3 Baso # (Auto) (0.01-0.08) K/mm3 Manual Slide Review Percent Retic (0.50-1.70) % Sodium (136-145) mEq/L Potassium (3.5-5.1) mEq/L Chloride (98-107) mEq/L Carbon Dioxide (21-32) mEq/L Anion Gap (5-15) BUN (7-18) mg/dL Creatinine (0.55-1.02) mg/dL Est Cr Clr Drug Dosing mL/min Estimated GFR (MDRD) (>60) mL/min BUN/Creatinine Ratio (14-18) Glucose (74-106) mg/dL POC Glucose 69 L 98 74 (70-105) mg/dL Calcium (8.5-10.1) mg/dL Total Bilirubin (0.2-1.0) mg/dL AST (15-37) U/L ALT (14-59) U/L Alkaline Phosphatase (46-116) U/L Total Protein (6.4-8.2) g/dl Albumin (3.4-5.0) g/dl Globulin gm/dL Albumin/Globulin Ratio (1-2) Miscellaneous Test 0408/07/19 08/07/19 Range/Units 20:26 21:13 22:10 WBC (3.98-10.04) K/mm3 RBC (3.98-5.22) M/mm3 Hgb (11.2-15.7) gm/dl Hct (34.1-44.9) % MCV (79.4-94.8) fl MCH (25.6-32.2) pg MCHC (32.2-35.5) g/dl RDW Std Deviation (36.4-46.3) fL Plt Count (182-369) K/mm3 MPV (9.4-12.3) fl Neut % (Auto) (34.0-71.1) % Lymph % (Auto) (19.3-51.7) % Miner % (Auto) (4.7-12.5) % Eos % (Auto) (0.7-5.8) Baso % (Auto) (0.1-1.2) % Neut # (Auto) (1.56-6.13) K/mm3 Lymph # (Auto) (1.18-3.74) K/mm3 Miner # (Auto) (0.24-0.36) K/mm3 Eos # (Auto) (0.04-0.36) K/mm3 Baso # (Auto) (0.01-0.08) K/mm3 Manual Slide Review Percent Retic (0.50-1.70) % Sodium (136-145) mEq/L Potassium (3.5-5.1) mEq/L Chloride (98-107) mEq/L Carbon Dioxide (21-32) mEq/L Anion Gap (5-15) BUN (7-18) mg/dL Creatinine (0.55-1.02) mg/dL Est Cr Clr Drug Dosing mL/min Estimated GFR (MDRD) (>60) mL/min BUN/Creatinine Ratio (14-18) Glucose (74-106) mg/dL POC Glucose 71 85 104 (70-105) mg/dL Calcium (8.5-10.1) mg/dL Total Bilirubin (0.2-1.0) mg/dL AST (15-37) U/L ALT (14-59) U/L Alkaline Phosphatase (46-116) U/L Total Protein (6.4-8.2) g/dl Albumin (3.4-5.0) g/dl Globulin gm/dL Albumin/Globulin Ratio (1-2) Miscellaneous Test 08/08/19 08/08/19 08/08/19 Range/Units 00:30 02:03 04:05 WBC (3.98-10.04) K/mm3 RBC (3.98-5.22) M/mm3 Hgb (11.2-15.7) gm/dl Hct (34.1-44.9) % MCV (79.4-94.8) fl MCH (25.6-32.2) pg MCHC (32.2-35.5) g/dl RDW Std Deviation (36.4-46.3) fL Plt Count (182-369) K/mm3 MPV (9.4-12.3) fl Neut % (Auto) (34.0-71.1) % Lymph % (Auto) (19.3-51.7) % Miner % (Auto) (4.7-12.5) % Eos % (Auto) (0.7-5.8) Baso % (Auto) (0.1-1.2) % Neut # (Auto) (1.56-6.13) K/mm3 Lymph # (Auto) (1.18-3.74) K/mm3 Miner # (Auto) (0.24-0.36) K/mm3 Eos # (Auto) (0.04-0.36) K/mm3 Baso # (Auto) (0.01-0.08) K/mm3 Manual Slide Review Percent Retic (0.50-1.70) % Sodium (136-145) mEq/L Potassium (3.5-5.1) mEq/L Chloride (98-107) mEq/L Carbon Dioxide (21-32) mEq/L Anion Gap (5-15) BUN (7-18) mg/dL Creatinine (0.55-1.02) mg/dL Est Cr Clr Drug Dosing mL/min Estimated GFR (MDRD) (>60) mL/min BUN/Creatinine Ratio (14-18) Glucose (74-106) mg/dL POC Glucose 88 96 120 H (70-105) mg/dL Calcium (8.5-10.1) mg/dL Total Bilirubin (0.2-1.0) mg/dL AST (15-37) U/L ALT (14-59) U/L Alkaline Phosphatase (46-116) U/L Total Protein (6.4-8.2) g/dl Albumin (3.4-5.0) g/dl Globulin gm/dL Albumin/Globulin Ratio (1-2) Miscellaneous Test 08/08/19 08/08/19 08/08/19 Range/Units 05:06 05:06 05:50 WBC 1.51 L* (3.98-10.04) K/mm3 RBC 3.21 L (3.98-5.22) M/mm3 Hgb 10.5 L (11.2-15.7) gm/dl Hct 32.7 L (34.1-44.9) % MCV 101.9 H (79.4-94.8) fl MCH 32.7 H (25.6-32.2) pg MCHC 32.1 L (32.2-35.5) g/dl RDW Std Deviation 45.1 (36.4-46.3) fL Plt Count 179 L (182-369) K/mm3 MPV 10.4 (9.4-12.3) fl Neut % (Auto) 32.5 L (34.0-71.1) % Lymph % (Auto) 55.6 H (19.3-51.7) % Miner % (Auto) 8.6 (4.7-12.5) % Eos % (Auto) 2.0 (0.7-5.8) Baso % (Auto) 1.3 H (0.1-1.2) % Neut # (Auto) 0.49 L (1.56-6.13) K/mm3 Lymph # (Auto) 0.84 L (1.18-3.74) K/mm3 Miner # (Auto) 0.13 L (0.24-0.36) K/mm3 Eos # (Auto) 0.03 L (0.04-0.36) K/mm3 Baso # (Auto) 0.02 (0.01-0.08) K/mm3 Manual Slide Review Abnormal smear Percent Retic (0.50-1.70) % Sodium 140 (136-145) mEq/L Potassium 4.1 (3.5-5.1) mEq/L Chloride 105 (98-107) mEq/L Carbon Dioxide 27 (21-32) mEq/L Anion Gap 12.1 (5-15) BUN 12 (7-18) mg/dL Creatinine 0.5 L (0.55-1.02) mg/dL Est Cr Clr Drug Dosing 127.67 mL/min Estimated GFR (MDRD) > 60 (>60) mL/min BUN/Creatinine Ratio 24.0 H (14-18) Glucose 137 H (74-106) mg/dL POC Glucose 144 H (70-105) mg/dL Calcium 8.2 L (8.5-10.1) mg/dL Total Bilirubin 0.8 (0.2-1.0) mg/dL AST 527 H (15-37) U/L ALT 291 H (14-59) U/L Alkaline Phosphatase 144 H (46-116) U/L Total Protein 4.9 L (6.4-8.2) g/dl Albumin 2.3 L (3.4-5.0) g/dl Globulin 2.6 gm/dL Albumin/Globulin Ratio 0.9 L (1-2) Miscellaneous Test 08/08/19 Range/Units 08:02 WBC (3.98-10.04) K/mm3 RBC (3.98-5.22) M/mm3 Hgb (11.2-15.7) gm/dl Hct (34.1-44.9) % MCV (79.4-94.8) fl MCH (25.6-32.2) pg MCHC (32.2-35.5) g/dl RDW Std Deviation (36.4-46.3) fL Plt Count (182-369) K/mm3 MPV (9.4-12.3) fl Neut % (Auto) (34.0-71.1) % Lymph % (Auto) (19.3-51.7) % Miner % (Auto) (4.7-12.5) % Eos % (Auto) (0.7-5.8) Baso % (Auto) (0.1-1.2) % Neut # (Auto) (1.56-6.13) K/mm3 Lymph # (Auto) (1.18-3.74) K/mm3 Miner # (Auto) (0.24-0.36) K/mm3 Eos # (Auto) (0.04-0.36) K/mm3 Baso # (Auto) (0.01-0.08) K/mm3 Manual Slide Review Percent Retic (0.50-1.70) % Sodium (136-145) mEq/L Potassium (3.5-5.1) mEq/L Chloride (98-107) mEq/L Carbon Dioxide (21-32) mEq/L Anion Gap (5-15) BUN (7-18) mg/dL Creatinine (0.55-1.02) mg/dL Est Cr Clr Drug Dosing mL/min Estimated GFR (MDRD) (>60) mL/min BUN/Creatinine Ratio (14-18) Glucose (74-106) mg/dL POC Glucose 218 H (70-105) mg/dL Calcium (8.5-10.1) mg/dL Total Bilirubin (0.2-1.0) mg/dL AST (15-37) U/L ALT (14-59) U/L Alkaline Phosphatase (46-116) U/L Total Protein (6.4-8.2) g/dl Albumin (3.4-5.0) g/dl Globulin gm/dL Albumin/Globulin Ratio (1-2) Miscellaneous Test Med Orders - Current: Current Medications Al Hydroxide/Mg Hydroxide (Mag-Al Plus) 30 ml PO Q4H PRN PRN Reason: Indigestion Dextrose/Water (Dextrose 50% In Water) 50 ml IVPUSH ASDIRECTED PRN PRN Reason: Hypoglycemia Last Admin: 08/06/19 21:05 Dose: 25 ml Enoxaparin Sodium (Lovenox) 30 mg SUBCUT Q24H STEPHANIE Insulin Human Regular 100 unit (/ Sodium Chloride) 100 mls @ 4.08 mls/hr IV TITRATE STEPHANIE; Protocol Last Titration: 08/05/19 03:45 Dose: 0 units/kg/hr, 0 mls/hr Piperacillin Sod/Tazobactam (Sod 4.5 gm/ Sodium Chloride) 100 mls @ 25 mls/hr IV Q8H STEPHANIE Last Admin: 08/08/19 05:47 Dose: 25 mls/hr Insulin Glargine (Lantus) 8 unit SUBCUT DAILY STEPHANIE Last Admin: 08/08/19 08:06 Dose: 8 units Insulin Human Lispro (Humalog) 0 unit SUBCUT QIDACANDBED [facility]; Protocol Last Admin: 08/08/19 08:05 Dose: 2 units Metoclopramide HCl (Reglan) 5 mg PO TIDAC [facility] Ondansetron HCl (Zofran) 4 mg IV Q4H PRN PRN Reason: Nausea/Vomiting Last Admin: 08/07/19 22:35 Dose: 4 mg Pantoprazole Sodium (Protonix) 40 mg PO BIDAC [facility] Last Admin: 08/08/19 05:48 Dose: 40 mg Sertraline HCl (Zoloft) 100 mg PO DAILY [facility] Last Admin: 08/08/19 08:06 Dose: 100 mg Sodium Chloride (Saline Flush) 10 ml FLUSH ASDIRECTED PRN PRN Reason: Keep Vein Open Last Admin: 08/04/19 12:19 Dose: 10 ml Sucralfate (Carafate) 2 gm PO BEDTIME [facility] Last Admin: 08/07/19 21:26 Dose: 2 gm Discontinued Medications Acetaminophen (Tylenol) 650 mg PO NOW ONE Stop: 08/05/19 11:31 Last Admin: 08/05/19 11:53 Dose: 650 mg Enoxaparin Sodium (Lovenox) 40 mg SUBCUT DAILY [facility] Sodium Chloride (Normal Saline) 2,000 mls @ 1,000 mls/hr IV .BOLUS STA Stop: 08/04/19 13:59 Last Admin: 08/04/19 12:15 Dose: 1,000 mls/hr Lactated Ringer's (Ringers, Lactated) 1,000 mls @ 1,000 mls/hr IV .BOLUS ONE Stop: 08/04/19 15:52 Last Admin: 08/04/19 14:57 Dose: 1,000 mls/hr Potassium Chloride/Sodium Chloride (1/2 Ns With 20 Meq Kcl) 1,000 mls @ 250 mls /hr IV ASDIRECTED [facility] Last Admin: 08/04/19 18:00 Dose: 250 mls/hr Potassium Chloride/Dextrose/Sod Cl (D5 1/2 Ns W/ 20 Meq/L Kcl) 1,000 mls @ 250 mls/hr IV ASDIRECTED [facility] Last Admin: 08/05/19 05:37 Dose: 250 mls/hr Magnesium Sulfate 2 gm/ Premix 50 mls @ 25 mls/hr IV ONETIME ONE Stop: 08/05/19 02:26 Last Admin: 08/05/19 00:40 Dose: 25 mls/hr Sodium Chloride (Sodium Chloride 0.45%) 1,000 mls @ 125 mls/hr IV ASDIRECTED [facility] Last Admin: 08/05/19 06:17 Dose: 125 mls/hr Piperacillin Sod/Tazobactam (Sod 4.5 gm/ Sodium Chloride) 100 mls @ 200 mls/hr IV ONETIME ONE Stop: 08/06/19 13:59 Last Admin: 08/06/19 14:27 Dose: 200 mls/hr Albumin Human (Flexbumin 25%) 12.5 gm in 50 mls @ 100 mls/hr IV ONETIME ONE Stop: 08/07/19 07:56 Last Admin: 08/07/19 08:06 Dose: 100 mls/hr Insulin Glargine (Lantus) 15 unit SUBCUT DAILY [facility] Last Admin: 08/07/19 08:07 Dose: 15 units Insulin Human Lispro (Humalog) 1 unit SUBCUT TIDPC [facility] Last Admin: 08/05/19 19:38 Dose: Not Given Ketorolac Tromethamine (Toradol) 15 mg IVPUSH ONETIME ONE Stop: 08/05/19 08:31 Last Admin: 08/05/19 08:41 Dose: 15 mg Ondansetron HCl (Zofran) 4 mg IVPUSH ONETIME ONE Stop: 08/04/19 12:01 Last Admin: 08/04/19 12:14 Dose: 4 mg Scopolamine (Transderm-Scop) 1.5 mg TOP ONETIME ONE Stop: 08/05/19 19:46 Last Admin: 08/05/19 20:27 Dose: 1.5 mg - Exam Physical Findings Comments:: General: The patient is awake alert and oriented x3 not in acute distress. HEENT: Atraumatic pupils equally round reactive to light, Oral mucosa moist. Neck: Supple no increased JVD, thyroid appears normal size and consistency. Chest: She does needs assistive muscles for breathing. Lungs: Clear to auscultation without any wheezes rales crackles or rhonchi noted. Heart: Normal S1-S2 heart sounds no murmurs gallops or rubs. Abdomen: Soft, tenderness noted to palpation in the epigastric region bowel sounds present. Extremities: No significant leg swelling noted, no varicose veins palpations of calves nontender. Sepsis Event Note - Evaluation Sepsis Screening Result: No Definite Risk - Focused Exam Vital Signs: Vital Signs Temp Pulse Resp BP Pulse Ox 08/08/19 08:15 98.1 F 63 19 127/93 H 99 08/08/19 04:00 58 L 16 117/93 H 100 Date Exam was Performed: 08/08/19 Time Exam was Performed: 11:24 - Problem List Review Problem List Initiated/Reviewed/Updated: Yes - My Orders Last 24 Hours: My Active Orders 08/07/19 12:32 H.PYLORI ANTIGEN, STOOL [OP] Routine 08/07/19 12:34 OCCULT BLOOD SCREEN [OP] Routine 08/07/19 12:38 Alum Hydrox/Mag Hydrox/Simeth [Mag-Al Plus] 30 ml PO Q4H PRN 08/08/19 17:00 Enoxaparin [Lovenox] 30 mg SUBCUT Q24H Metoclopramide [Reglan] 5 mg PO TIDAC 08/09/19 05:11 CBC WITH AUTO DIFF [HEME] AM CMP [COMPREHENSIVE METABOLIC PN,CMP] [CHEM] AM CMP [COMPREHENSIVE METABOLIC PN,CMP] [CHEM] AM MAGNESIUM (PHARM SOLN) [CHEM] DAILY PHOSPHORUS [CHEM] AM 08/10/19 05:11 CMP [COMPREHENSIVE METABOLIC PN,CMP] [CHEM] AM - Assessment Assessment:: Assessment and plan Neutropenia: Today, the patient's WBC 1.51 compared to 1.4 yesterday. Patient fortunately has not had any fevers. We will continue the patient on reverse isolation for now. Continue broad-spectrum antibiotics with Zosyn. Tomorrow the patient's WBC improved for possible discharge. Elevated transaminase possibly secondary to cholecystitis: There was concern for possible cholecystitis. But HIDA scan that was done to the patient indicated normal left ventricular ejection fraction. At this time, because of patient's elevated transaminase is not completely clear but could be due to viral infection as well. Fortunately, patient's liver enzymes appears to be trending down today as compared to yesterday, AST/ALT 527/291 alkaline phosphatase 144 total bilirubin 0.8 today as compared to 654/285 yesterday the patient does not really appear jaundiced we will continue to monitor. Gastroparesis: Patient reports early satiety, in the settings of normal HIDA scan, reports of early satiety with occasional nausea. I believe patient's symptoms is all stemming from gastroparesis will start patient on Reglan 5 mg p.o. 3 times daily before meals hopefully this will improve symptoms. Recommend gastric emptying study on discharge. Protein calorie malnutrition: Noted with signs of protein calorie malnutrition, today the patient's albumin 2.3 as compared to 2.2 yesterday. Due to monitor, continue high-protein diet, Glucerna continue follow-up with filter changing technician. Diabetic ketoacidosis was resolved/type 1 diabetes: Patient's gap had since closed. Insulin drip discontinued about 96 hours ago. Patient kept having episodes of hypoglycemia. Lantus was decreased from 15 to 8 units last night. So far, blood glucose has been at target patient has not been requiring dextrose. No current sliding scale insulin. G:I Prophylaxis: She will be on Protonix grams p.o. twice daily AC carafate 2gm qhs. DVT prophylaxis: Lovenox 30 mg subcu every 24. Nausea: Zofran 4 mg as needed nausea. Depression: Continue Zoloft 100 mg p.o. daily. Status: Full code Disposition: Appears to be improving, blood glucose appears to be improving, WBC improving as well. If WBC within normal limits, continuos improvement of liver enzymes expect discharge tomorrow. - Plan Plan:: .
[2019-08-08] MEDS: Metoclopramide 5 MG Tab PO SCH (16:10)
[2019-08-08] MEDS ORDERED: Enoxaparin 30 MG/0.3 ML Syringe SUBCUT SCH (17:00)
[2019-08-08] MEDS: Enoxaparin 40 MG/0.4 ML Syringe SUBCUT SCH (17:28)
[2019-08-08] MEDS: Sucralfate 1 GM Tab PO SCH (20:32)
[2019-08-09] MEDS ORDERED: Insulin Lispro 100 Units/ML 3 ML Vial SUBCUT ONE (04:17)
[2019-08-09] MEDS: Insulin Lispro 100 Units/ML 3 ML Vial SUBCUT SCH ×4 (06:00→20:58)
[2019-08-09] MEDS: Piperacillin/Tazobactam 4.5 GM in Sodium Chloride 0.9% 100 ML IV SCH (06:00)
[2019-08-09] MEDS: Metoclopramide 5 MG Tab PO SCH ×3 (06:00→16:55)
[2019-08-09] MEDS: Pantoprazole 40 MG Tab.CR PO SCH ×2 (06:00→16:55)
[2019-08-09] MEDS: Sertraline 50 MG Tab PO SCH (08:18)
[2019-08-09] MEDS: Insulin Glarg,Human.Rec.Analog 100 Unit/ML SUBCUT SCH (08:18)
--- NOTE | 2019-08-09 13:15 | PCM.PN ---
- General Info Date of Service: 08/09/19 - Review of Systems Systems Review Comment:: The patient was seen and examined by me, and discussed with Dr. Johnson. At the time of my exam, the patient was seen in bed. Nursing staff reported yesterday after the patient was started on Reglan and diet advance of patient has been tolerating meals without any significant reports of nausea vomiting no abdominal pain. No fevers no chills WBC appears to be improving. Case was discussed today with general surgeon for possible upper endoscopy at this time recommendation from surgery is for outpatient follow-up. Otherwise nursing staff did not report any other acute complaints with patient. - Patient Data Vitals - Most Recent: Last Vital Signs Temp 98.1 F 08/09/19 09:19 Pulse 74 08/09/19 09:19 Resp 18 08/09/19 09:19 BP 121/84 08/09/19 09:19 Pulse Ox 97 08/09/19 09:19 Weight - Most Recent: 113 lb 8 oz I&O - Last 24 Hours: Intake & Output 08/08/19 08/09/19 08/09/19 22:59 06:59 14:59 Intake Total 650 Balance 650 Lab Results Last 24 Hours: Laboratory Results - last 24 hr 08/08/19 08/08/19 08/08/19 Range/Units 13:16 16:11 20:30 WBC (3.98-10.04) K/mm3 RBC (3.98-5.22) M/mm3 Hgb (11.2-15.7) gm/dl Hct (34.1-44.9) % MCV (79.4-94.8) fl MCH (25.6-32.2) pg MCHC (32.2-35.5) g/dl RDW Std Deviation (36.4-46.3) fL Plt Count (182-369) K/mm3 MPV (9.4-12.3) fl Neut % (Auto) (34.0-71.1) % Lymph % (Auto) (19.3-51.7) % [place] % (Auto) (4.7-12.5) % Eos % (Auto) (0.7-5.8) Baso % (Auto) (0.1-1.2) % Neut # (Auto) (1.56-6.13) K/mm3 Lymph # (Auto) (1.18-3.74) K/mm3 [place] # (Auto) (0.24-0.36) K/mm3 Eos # (Auto) (0.04-0.36) K/mm3 Baso # (Auto) (0.01-0.08) K/mm3 Manual Slide Review Sodium (136-145) mEq/L Potassium (3.5-5.1) mEq/L Chloride (98-107) mEq/L Carbon Dioxide (21-32) mEq/L Anion Gap (5-15) BUN (7-18) mg/dL Creatinine (0.55-1.02) mg/dL Est Cr Clr Drug Dosing mL/min Estimated GFR (MDRD) (>60) mL/min BUN/Creatinine Ratio (14-18) Glucose (74-106) mg/dL POC Glucose 170 H 156 H 214 H (70-105) mg/dL Calcium (8.5-10.1) mg/dL Phosphorus (2.6-4.7) mg/dL Total Bilirubin (0.2-1.0) mg/dL AST (15-37) U/L ALT (14-59) U/L Alkaline Phosphatase (46-116) U/L Total Protein (6.4-8.2) g/dl Albumin (3.4-5.0) g/dl Globulin gm/dL Albumin/Globulin Ratio (1-2) 08/09/19 08/09/19 08/09/19 Range/Units 00:04 04:02 05:13 WBC (3.98-10.04) K/mm3 RBC (3.98-5.22) M/mm3 Hgb (11.2-15.7) gm/dl Hct (34.1-44.9) % MCV (79.4-94.8) fl MCH (25.6-32.2) pg MCHC (32.2-35.5) g/dl RDW Std Deviation (36.4-46.3) fL Plt Count (182-369) K/mm3 MPV (9.4-12.3) fl Neut % (Auto) (34.0-71.1) % Lymph % (Auto) (19.3-51.7) % [place] % (Auto) (4.7-12.5) % Eos % (Auto) (0.7-5.8) Baso % (Auto) (0.1-1.2) % Neut # (Auto) (1.56-6.13) K/mm3 Lymph # (Auto) (1.18-3.74) K/mm3 [place] # (Auto) (0.24-0.36) K/mm3 Eos # (Auto) (0.04-0.36) K/mm3 Baso # (Auto) (0.01-0.08) K/mm3 Manual Slide Review Sodium 139 (136-145) mEq/L Potassium 4.1 (3.5-5.1) mEq/L Chloride 103 (98-107) mEq/L Carbon Dioxide 27 (21-32) mEq/L Anion Gap 13.1 (5-15) BUN 17 (7-18) mg/dL Creatinine 0.5 L (0.55-1.02) mg/dL Est Cr Clr Drug Dosing 127.67 mL/min Estimated GFR (MDRD) > 60 (>60) mL/min BUN/Creatinine Ratio 34.0 H (14-18) Glucose 240 H (74-106) mg/dL POC Glucose 157 H 224 H (70-105) mg/dL Calcium 8.3 L (8.5-10.1) mg/dL Phosphorus 4.0 (2.6-4.7) mg/dL Total Bilirubin 0.6 (0.2-1.0) mg/dL AST 331 H (15-37) U/L ALT 264 H (14-59) U/L Alkaline Phosphatase 149 H (46-116) U/L Total Protein 5.1 L (6.4-8.2) g/dl Albumin 2.3 L (3.4-5.0) g/dl Globulin 2.8 gm/dL Albumin/Globulin Ratio 0.8 L (1-2) 08/09/19 08/09/19 08/09/19 Range/Units 05:13 05:54 11:41 WBC 1.85 L* (3.98-10.04) K/mm3 RBC 3.36 L (3.98-5.22) M/mm3 Hgb 11.0 L (11.2-15.7) gm/dl Hct 34.2 (34.1-44.9) % MCV 101.8 H (79.4-94.8) fl MCH 32.7 H (25.6-32.2) pg MCHC 32.2 (32.2-35.5) g/dl RDW Std Deviation 45.1 (36.4-46.3) fL Plt Count 195 (182-369) K/mm3 MPV 10.2 (9.4-12.3) fl Neut % (Auto) 31.8 L (34.0-71.1) % Lymph % (Auto) 54.1 H (19.3-51.7) % [place] % (Auto) 10.3 (4.7-12.5) % Eos % (Auto) 2.2 (0.7-5.8) Baso % (Auto) 1.6 H (0.1-1.2) % Neut # (Auto) 0.59 L (1.56-6.13) K/mm3 Lymph # (Auto) 1.00 L (1.18-3.74) K/mm3 [place] # (Auto) 0.19 L (0.24-0.36) K/mm3 Eos # (Auto) 0.04 (0.04-0.36) K/mm3 Baso # (Auto) 0.03 (0.01-0.08) K/mm3 Manual Slide Review Abnormal smear Sodium (136-145) mEq/L Potassium (3.5-5.1) mEq/L Chloride (98-107) mEq/L Carbon Dioxide (21-32) mEq/L Anion Gap (5-15) BUN (7-18) mg/dL Creatinine (0.55-1.02) mg/dL Est Cr Clr Drug Dosing mL/min Estimated GFR (MDRD) (>60) mL/min BUN/Creatinine Ratio (14-18) Glucose (74-106) mg/dL POC Glucose 189 H 162 H (70-105) mg/dL Calcium (8.5-10.1) mg/dL Phosphorus (2.6-4.7) mg/dL Total Bilirubin (0.2-1.0) mg/dL AST (15-37) U/L ALT (14-59) U/L Alkaline Phosphatase (46-116) U/L Total Protein (6.4-8.2) g/dl Albumin (3.4-5.0) g/dl Globulin gm/dL Albumin/Globulin Ratio (1-2) Med Orders - Current: Current Medications Al Hydroxide/Mg Hydroxide (Mag-Al Plus) 30 ml PO Q4H PRN PRN Reason: Indigestion Dextrose/Water (Dextrose 50% In Water) 50 ml IVPUSH ASDIRECTED PRN PRN Reason: Hypoglycemia Last Admin: 08/06/19 21:05 Dose: 25 ml Enoxaparin Sodium (Lovenox) 40 mg SUBCUT Q24H [facility] Last Admin: 08/08/19 17:28 Dose: Not Given Insulin Human Regular 100 unit (/ Sodium Chloride) 100 mls @ 4.08 mls/hr IV TITRATE [facility]; Protocol Last Titration: 08/05/19 03:45 Dose: 0 units/kg/hr, 0 mls/hr Insulin Glargine (Lantus) 8 unit SUBCUT DAILY [facility] Last Admin: 08/09/19 08:18 Dose: 8 units Insulin Human Lispro (Humalog) 0 unit SUBCUT QIDACANDBED [facility]; Protocol Last Admin: 08/09/19 11:43 Dose: 1 unit Metoclopramide HCl (Reglan) 5 mg PO TIDAC [facility] Last Admin: 08/09/19 11:40 Dose: 5 mg Ondansetron HCl (Zofran) 4 mg IV Q4H PRN PRN Reason: Nausea/Vomiting Last Admin: 08/07/19 22:35 Dose: 4 mg Pantoprazole Sodium (Protonix) 40 mg PO BIDAC [facility] Last Admin: 08/09/19 06:00 Dose: 40 mg Sertraline HCl (Zoloft) 100 mg PO DAILY [facility] Last Admin: 08/09/19 08:18 Dose: 100 mg Sodium Chloride (Saline Flush) 10 ml FLUSH ASDIRECTED PRN PRN Reason: Keep Vein Open Last Admin: 08/04/19 12:19 Dose: 10 ml Sucralfate (Carafate) 2 gm PO BEDTIME [facility] Last Admin: 08/08/19 20:32 Dose: 2 gm Discontinued Medications Acetaminophen (Tylenol) 650 mg PO NOW ONE Stop: 08/05/19 11:31 Last Admin: 08/05/19 11:53 Dose: 650 mg Enoxaparin Sodium (Lovenox) 40 mg SUBCUT DAILY [facility] Enoxaparin Sodium (Lovenox) 30 mg SUBCUT Q24H [facility] Last Admin: 08/08/19 16:10 Dose: Not Given Sodium Chloride (Normal Saline) 2,000 mls @ 1,000 mls/hr IV .BOLUS STA Stop: 08/04/19 13:59 Last Admin: 08/04/19 12:15 Dose: 1,000 mls/hr Lactated Ringer's (Ringers, Lactated) 1,000 mls @ 1,000 mls/hr IV .BOLUS ONE Stop: 08/04/19 15:52 Last Admin: 08/04/19 14:57 Dose: 1,000 mls/hr Potassium Chloride/Sodium Chloride (1/2 Ns With 20 Meq Kcl) 1,000 mls @ 250 mls /hr IV ASDIRECTED [facility] Last Admin: 08/04/19 18:00 Dose: 250 mls/hr Potassium Chloride/Dextrose/Sod Cl (D5 1/2 Ns W/ 20 Meq/L Kcl) 1,000 mls @ 250 mls/hr IV ASDIRECTED [facility] Last Admin: 08/05/19 05:37 Dose: 250 mls/hr Magnesium Sulfate 2 gm/ Premix 50 mls @ 25 mls/hr IV ONETIME ONE Stop: 08/05/19 02:26 Last Admin: 08/05/19 00:40 Dose: 25 mls/hr Sodium Chloride (Sodium Chloride 0.45%) 1,000 mls @ 125 mls/hr IV ASDIRECTED [facility] Last Admin: 08/05/19 06:17 Dose: 125 mls/hr Piperacillin Sod/Tazobactam (Sod 4.5 gm/ Sodium Chloride) 100 mls @ 200 mls/hr IV ONETIME ONE Stop: 08/06/19 13:59 Last Admin: 08/06/19 14:27 Dose: 200 mls/hr Piperacillin Sod/Tazobactam (Sod 4.5 gm/ Sodium Chloride) 100 mls @ 25 mls/hr IV Q8H [facility] Last Admin: 08/09/19 06:00 Dose: 25 mls/hr Albumin Human (Flexbumin 25%) 12.5 gm in 50 mls @ 100 mls/hr IV ONETIME ONE Stop: 08/07/19 07:56 Last Admin: 08/07/19 08:06 Dose: 100 mls/hr Insulin Glargine (Lantus) 15 unit SUBCUT DAILY [facility] Last Admin: 08/07/19 08:07 Dose: 15 units Insulin Human Lispro (Humalog) 0 unit SUBCUT QIDACANDBED [facility]; Protocol Last Admin: 08/08/19 17:58 Dose: 1 units Insulin Human Lispro (Humalog) 1 unit SUBCUT TIDPC [facility] Last Admin: 08/05/19 19:38 Dose: Not Given Insulin Human Lispro (Humalog) 2 unit SUBCUT ONETIME ONE Stop: 08/09/19 04:18 Last Admin: 08/09/19 04:22 Dose: 2 unit Ketorolac Tromethamine (Toradol) 15 mg IVPUSH ONETIME ONE Stop: 08/05/19 08:31 Last Admin: 08/05/19 08:41 Dose: 15 mg Ondansetron HCl (Zofran) 4 mg IVPUSH ONETIME ONE Stop: 08/04/19 12:01 Last Admin: 08/04/19 12:14 Dose: 4 mg Scopolamine (Transderm-Scop) 1.5 mg TOP ONETIME ONE Stop: 08/05/19 19:46 Last Admin: 08/05/19 20:27 Dose: 1.5 mg - Exam General: Alert, Oriented, Cooperative, No Acute Distress HEENT: Pupils Equal, Pupils Reactive, EOMI Neck: Supple, Trachea Midline Lungs: Clear to Auscultation, Normal Respiratory Effort Cardiovascular: Regular Rate, Regular Rhythm Extremities: Normal Inspection, Normal Range of Motion Skin: Warm, Dry Sepsis Event Note - Evaluation Sepsis Screening Result: No Definite Risk - Focused Exam Vital Signs: Vital Signs Temp Pulse Resp BP Pulse Ox 08/09/19 09:19 98.1 F 74 18 121/84 97 08/09/19 04:00 97.5 F 60 16 127/89 92 L Date Exam was Performed: 08/09/19 Time Exam was Performed: 13:07 - Problem List Review Problem List Initiated/Reviewed/Updated: Yes - My Orders Last 24 Hours: My Active Orders 08/08/19 17:00 Metoclopramide [Reglan] 5 mg PO TIDAC 08/08/19 17:30 Enoxaparin [Lovenox] 40 mg SUBCUT Q24H 08/09/19 04:14 Glucose [Blood Glucose Check, Bedside] [RC] QIDACANDBED 08/10/19 05:11 CMP [COMPREHENSIVE METABOLIC PN,CMP] [CHEM] AM - Assessment Assessment:: Assessment and plan Neutropenia: Today, the patient's WBC 1.85 compared to 1.51 yesterday. Patient fortunately has not had any fevers. We will continue the patient on reverse isolation for now. The patient has not had any events, and HIDA scan was negative, I believe is appropriate to discontinue the patient's antibiotics for now given because of patient's neutropenia could be due to viral but we will continue to monitor patient closely. Hopefully WBC keeps improving and no fevers will plan for discharge tomorrow. Elevated transaminase possibly viral syndrome: There was concern for possible cholecystitis. But HIDA scan that was done to the patient indicated normal left ventricular ejection fraction. Patient is neutropenia, elevated LFTs, I believe symptoms could be due to some viral infection. Fortunately today, AST/ ALT 331/264, alkaline phosphatase 149 total bilirubin 0.6 as compared to 527/291 , 144 yesterday. This improvement, if patient keeps trend of improvement no pain expect discharge tomorrow. Gastroparesis: Yesterday, the patient was started on Reglan 5 mg p.0 3 times daily AC, so far, patient has been eating more, no more reports of nausea vomiting discussed with general surgeon today for possible upper endoscopy but at this time recommendations for outpatient follow-up we will continue to monitor. Patient reports early satiety, in the settings of normal HIDA scan, reports of early satiety with occasional nausea. I believe patient's symptoms is all stemming from gastroparesis will start patient on Reglan 5 mg p.o. 3 times daily before meals hopefully this will improve symptoms. Recommend gastric emptying study on discharge. Protein calorie malnutrition: Noted with signs of protein calorie malnutrition, today the patient's albumin 2.3 as compared to 2.2 yesterday. Due to monitor, continue high-protein diet, Glucerna continue follow-up with [employer]. Diabetic ketoacidosis was resolved/type 1 diabetes: Patient's gap had since closed. Insulin drip discontinued about 96 hours ago. Patient kept having episodes of hypoglycemia. Lantus was decreased from 15 to 8 units last night. So far, blood glucose has been at target patient has not been requiring dextrose. No current sliding scale insulin. G:I Prophylaxis: She will be on Protonix grams p.o. twice daily AC carafate 2gm qhs. DVT prophylaxis: Lovenox 30 mg subcu every 24. Nausea: Zofran 4 mg as needed nausea. Depression: Continue Zoloft 100 mg p.o. daily. Status: Full code Disposition: We will need to stay longer than 96 hours because liver enzymes and white blood cell count are abnormal. But given the patient's WBC is improving but not at target, no nausea and vomiting, liver enzymes appears to be improving. If patient keeps trend of improvement provided WBC close to normal, liver enzymes Improving expect discharge tomorrow. - Plan Plan:: .
[2019-08-09] MEDS: Enoxaparin 40 MG/0.4 ML Syringe SUBCUT SCH (16:55)
[2019-08-09] MEDS: Sucralfate 1 GM Tab PO SCH (20:42)
[2019-08-10] MEDS: Pantoprazole 40 MG Tab.CR PO SCH (05:09)
[2019-08-10] MEDS: Insulin Lispro 100 Units/ML 3 ML Vial SUBCUT SCH (06:12)
[2019-08-10] MEDS: Metoclopramide 5 MG Tab PO SCH ×2 (06:12→11:55)
[2019-08-10] MEDS: Insulin Glarg,Human.Rec.Analog 100 Unit/ML SUBCUT SCH (08:31)
[2019-08-10] MEDS: Sertraline 50 MG Tab PO SCH (08:31)
--- NOTE | 2019-08-10 10:11 | PN ---
DATE OF SERVICE: 08/09/2019 ADDENDUM: The patient was seen, examined, and discussed by me with Sohan Mendoza PA-C. The patient yesterday was started on p.o. Reglan in concern of suspected gastroparesis and today the patient reported that she had abdominal pain even though improved even though still there. We do see improvement of LFTs and patient was able to eat full breakfast today. Today, at time of focused interview with the patient, we also learnt that in February 2019 in [place], the patient did have a gastric emptying study done that was normal. In view of the above-mentioned information, we will cancel the patient's gastric emptying study for tomorrow. We will ask for records from [place], GI specialist, and we will consult the surgeon, Dr. Jackson for upper GI endoscopy tomorrow. Even though the patient reported gastric emptying study was normal, the patient did respond to therapy with Reglan that I believe may represent gastroduodenal dysfunction that could be secondary to peptic ulcer disease that needs verification. The patient will stay in-house. The patient's white blood cells went somewhat up, 1.81; neutrophils came up to 519, so rigorous precautions can be discontinued for the patient. For details of the patient's review of systems, interval test results, physical exam, medications, and further plan of management, please see note prepared by Sohan Mendoza PA-C. This was a prolonged visit. Total time spent in patient direct care, coordination of medical care, the patient's counseling at bedside about current management, results, physical exam, medications, further plans of tests and treatment was longer than 35 minutes. MMODAL /[id number]
--- NOTE | 2019-08-10 15:20 | PCM.DCSUM1 ---
Discharge Summary - Hospital Course Free Text/Narrative:: Discharge Diagnosis 1. Diabetic ketoacidosis status post resolved 2. Painful dyspepsia/flareup of gastroesophageal reflux disease status post improved (was recommended for follow-up with general surgeon for upper endoscopy ) 3. Metabolic encephalopathy secondary to DKA resolved 4. Gastroparesis 5. Protein calorie malnutrition (commended for high protein/calorie diet on discharge) 6. Type 1 diabetes mellitus Mrs. Graves is a pleasant 29-year-old female, with past medical history significant for type 1 diabetes mellitus and gastroesophageal flux disease. Was admitted to the hospital with chief complaint of altered mental status. On day of admission, patient's who provided history ported patient was recently discharged from a hospital in [place] where patient was admitted for intractable nausea and vomiting. On this admission patient was evaluated dose of Lantus was decreased from 27 to 17 units. But on day of admission, family reported they noticed the patient was confused. On presentation to the ED, patient was found with significantly elevated blood glucose as high as 870, with pH of 7.0, PCO2 of 9.3. Given this presentation, the patient was admitted to ICU with diagnosis of diabetic ketoacidosis in a type I diabetic. Patient was started on insulin drip per protocol. Was closely monitored. Fortunately, the patient's gap closed within 48 hours of admission. But after resolution of DKA, patient still had episodes of nausea and vomiting, early satiety so there was concern for gallbladder disease. Right upper quadrant ultrasound was done to the patient along with HIDA scan given gallbladder ultrasound was normal ejection fraction was within normal limits. Recommendation was to consult surgery for upper endoscopy, general surgery recommended outpatient follow-up upper endoscopy. At the same time, given the patient's nausea and early satiety persisted, PPIs will reinforce and patient was also started on Reglan. After adjusting these medications, intractable nausea, early satiety improved. Patient was tolerating meals without any acute complaints. Prior to discharge, patient is recommended to continue on Lantus 16 units nightly, continue on. 6 diabetes sliding scale insulin. Recommendation was to change the patient's insulin to 4 units 3 times daily with meals but the patient states this will drop her blood glucose too low and states she would like to keep doing what she was doing with her sliding scale. In the meantime, patient is advised to follow diabetic diet, not to resume keto diet establish care and follow-up with PCP within 1 week of discharge. HPI Initial Comments: 29-year-old female with history of type I diabetes diagnosed at 12 years of age presents to the emergency department by her because of confusion. Patient is a poor historian because of her DKA, therefore some of the history has been obtained through the emergency department notes and some through her recollection. Patient states that she does not remember getting here. She has had abdominal pain nausea and vomiting since the end of December when she went on a keto diet. She just returned from a 2-month vacation in [place] yesterday. She was hospitalized for 3 days in [place] due to nausea and vomiting. During her hospitalization her blood sugars were as high as 600. They decreased her Lantus insulin from 27 units to 17 units daily. They her sliding scale the same. She states that she does vomit daily since last December. It occurs approximately 1 to 2 hours after eating. Complains of epigastric pain that is mild to moderate in severity. She complains of a sense of fullness. She denies any hematochezia, melena, change in bowel habits, diarrhea, or constipation. She denies drinking or smoking. Her last bowel movement was in the emergency department. Patient moved from [place] to [place] in 2015. She moved to [place] last February. In the emergency department her blood sugars were found to be 870. She was given 2 L normal saline and started on an insulin drip and transferred to the ICU. Diagnosis: Stroke: No - Discharge Data Discharge Date: 08/10/19 Discharge Disposition: Home, Self-Care 01 Condition: Good - Referral to Home Health Primary Care Physician: NELIDA Navarro - Discharge Diagnosis/Problem(s) (1) DKA (diabetic ketoacidoses) SNOMED Code(s): 898294399, [id number] ICD Code: E11.10 - TYPE 2 DIABETES MELLITUS WITH KETOACIDOSIS WITHOUT COMA Status: Acute Qualifiers: Diabetes mellitus type: type 1 Diabetes mellitus complication detail: without coma Qualified Code(s): E10.10 - Type 1 diabetes mellitus with ketoacidosis without coma - Patient Summary/Data Consults: Consultations 08/05/19 09:00 Consult to Diabetic Nurse Specialist [CONS] Routine 08/05/19 09:24 Consult to Dietary [Consult to Cardiovascular Technician] [CONS] Routine - Patient Instructions Diet: Diabetic Diet Activity: As Tolerated - Discharge Plan *PRESCRIPTION DRUG MONITORING PROGRAM REVIEWED*: No *COPY OF PRESCRIPTION DRUG MONITORING REPORT IN PATIENT [place]: No Prescriptions/Med Rec: Insulin Glargine,Hum.Rec.Anlog [Basaglar Kwikpen U-100] 16 units SQ BEDTIME 30 Days insuln.pen Metoclopramide [Reglan] 5 mg PO BIDAC #15 tablet Pantoprazole [ProTONIX] 40 mg PO BIDAC 30 Days #60 tab.cr Sucralfate [Carafate] 2 gm PO BEDTIME 30 Days tablet Home Medications: Home Meds Insulin Lispro [Humalog] See Protocol SQ TID 04/05/19 [History] Sertraline [Zoloft] 100 mg PO DAILY 04/05/19 [History] Insulin Glargine,Hum.Rec.Anlog [Basaglar Kwikpen U-100] 16 units SQ BEDTIME 30 Days insuln.pen 08/10/19 [Rx] Insulin Lispro [HumaLOG] 0 unit SUBCUT QIDACANDBED vial 08/10/19 [Rx] Metoclopramide [Reglan] 5 mg PO BIDAC #15 tablet 08/10/19 [Rx] Pantoprazole [ProTONIX] 40 mg PO BIDAC 30 Days #60 tab.cr 08/10/19 [Rx] Sucralfate [Carafate] 2 gm PO BEDTIME 30 Days tablet 08/10/19 [Rx] Oxygen Therapy Mode: Room Air Patient Handouts: Diabetic Ketoacidosis Referrals: Tari Lazo PA-C [Primary Care Provider] - Jose Jackson MD [Physician] - 08/24/19 10:00 am (This appt. is for possible upper endoscopy. Please arrive by 9:45 If you need to change appt. time please call [phone]. Thanks) - Discharge Summary/Plan Comment DC Time >30 min.: Yes - Patient Data Vitals - Most Recent: Last Vital Signs Temp 97.6 F 08/10/19 10:00 Pulse 71 08/09/19 20:48 Resp 18 08/10/19 10:00 BP 122/76 08/10/19 10:00 Pulse Ox 99 08/10/19 10:00 Weight - Most Recent: 112 lb I&O - Last 24 hours: Intake & Output 08/10/19 08/10/19 08/10/19 06:59 14:59 22:59 Intake Total 180 Balance 180 Lab Results - Last 24 hrs: Laboratory Results - last 24 hr 08/07/19 08/07/19 08/09/19 Range/Units 05:33 05:33 16:56 WBC (3.98-10.04) K/mm3 RBC (3.98-5.22) M/mm3 Hgb (11.2-15.7) gm/dl Hct (34.1-44.9) % MCV (79.4-94.8) fl MCH (25.6-32.2) pg MCHC (32.2-35.5) g/dl RDW Std Deviation (36.4-46.3) fL Plt Count (182-369) K/mm3 MPV (9.4-12.3) fl Neut % (Auto) (34.0-71.1) % Lymph % (Auto) (19.3-51.7) % Barnes % (Auto) (4.7-12.5) % Eos % (Auto) (0.7-5.8) Baso % (Auto) (0.1-1.2) % Neut # (Auto) (1.56-6.13) K/mm3 Lymph # (Auto) (1.18-3.74) K/mm3 Barnes # (Auto) (0.24-0.36) K/mm3 Eos # (Auto) (0.04-0.36) K/mm3 Baso # (Auto) (0.01-0.08) K/mm3 Neutrophils % (Manual) 28 % Band Neuts % (Manual) 6 % Lymphocytes % (Manual) 58 % Monocytes % (Manual) 8 % Eosinophils % (Manual) 0 % Basophils % (Manual) 0 % Nucleated RBCs/100 WBC 1.0 /100 WBC Manual Slide Review RBC/WBC/PLT Morphology Abnormal (Normal) Platelet Estimate Adequate Macrocytosis 1+ /hpf Smear Path Review Path rpt Sodium (136-145) mEq/L Potassium (3.5-5.1) mEq/L Chloride (98-107) mEq/L Carbon Dioxide (21-32) mEq/L Anion Gap (5-15) BUN (7-18) mg/dL Creatinine (0.55-1.02) mg/dL Est Cr Clr Drug Dosing mL/min Estimated GFR (MDRD) (>60) mL/min BUN/Creatinine Ratio (14-18) Glucose (74-106) mg/dL POC Glucose 193 H (70-105) mg/dL Calcium (8.5-10.1) mg/dL Total Bilirubin (0.2-1.0) mg/dL AST (15-37) U/L ALT (14-59) U/L Alkaline Phosphatase (46-116) U/L Total Protein (6.4-8.2) g/dl Albumin (3.4-5.0) g/dl Globulin gm/dL Albumin/Globulin Ratio (1-2) 08/09/19 08/10/19 08/10/19 Range/Units 20:40 05:08 05:10 WBC (3.98-10.04) K/mm3 RBC (3.98-5.22) M/mm3 Hgb (11.2-15.7) gm/dl Hct (34.1-44.9) % MCV (79.4-94.8) fl MCH (25.6-32.2) pg MCHC (32.2-35.5) g/dl RDW Std Deviation (36.4-46.3) fL Plt Count (182-369) K/mm3 MPV (9.4-12.3) fl Neut % (Auto) (34.0-71.1) % Lymph % (Auto) (19.3-51.7) % Barnes % (Auto) (4.7-12.5) % Eos % (Auto) (0.7-5.8) Baso % (Auto) (0.1-1.2) % Neut # (Auto) (1.56-6.13) K/mm3 Lymph # (Auto) (1.18-3.74) K/mm3 Barnes # (Auto) (0.24-0.36) K/mm3 Eos # (Auto) (0.04-0.36) K/mm3 Baso # (Auto) (0.01-0.08) K/mm3 Neutrophils % (Manual) % Band Neuts % (Manual) % Lymphocytes % (Manual) % Monocytes % (Manual) % Eosinophils % (Manual) % Basophils % (Manual) % Nucleated RBCs/100 WBC /100 WBC Manual Slide Review RBC/WBC/PLT Morphology (Normal) Platelet Estimate Macrocytosis /hpf Smear Path Review Sodium 139 (136-145) mEq/L Potassium 4.3 (3.5-5.1) mEq/L Chloride 104 (98-107) mEq/L Carbon Dioxide 27 (21-32) mEq/L Anion Gap 12.3 (5-15) BUN 16 (7-18) mg/dL Creatinine 0.5 L (0.55-1.02) mg/dL Est Cr Clr Drug Dosing 127.67 mL/min Estimated GFR (MDRD) > 60 (>60) mL/min BUN/Creatinine Ratio 32.0 H (14-18) Glucose 228 H (74-106) mg/dL POC Glucose 210 H 202 H (70-105) mg/dL Calcium 8.1 L (8.5-10.1) mg/dL Total Bilirubin 0.6 (0.2-1.0) mg/dL AST 275 H (15-37) U/L ALT 245 H (14-59) U/L Alkaline Phosphatase 146 H (46-116) U/L Total Protein 5.2 L (6.4-8.2) g/dl Albumin 2.4 L (3.4-5.0) g/dl Globulin 2.8 gm/dL Albumin/Globulin Ratio 0.9 L (1-2) 08/10/19 Range/Units 05:10 WBC 2.41 L* (3.98-10.04) K/mm3 RBC 3.53 L (3.98-5.22) M/mm3 Hgb 11.7 (11.2-15.7) gm/dl Hct 36.0 (34.1-44.9) % MCV 102.0 H (79.4-94.8) fl MCH 33.1 H (25.6-32.2) pg MCHC 32.5 (32.2-35.5) g/dl RDW Std Deviation 45.6 (36.4-46.3) fL Plt Count 203 (182-369) K/mm3 MPV 10.7 (9.4-12.3) fl Neut % (Auto) 37.0 (34.0-71.1) % Lymph % (Auto) 49.8 (19.3-51.7) % Barnes % (Auto) 9.5 (4.7-12.5) % Eos % (Auto) 2.1 (0.7-5.8) Baso % (Auto) 1.2 (0.1-1.2) % Neut # (Auto) 0.89 L (1.56-6.13) K/mm3 Lymph # (Auto) 1.20 (1.18-3.74) K/mm3 Barnes # (Auto) 0.23 L (0.24-0.36) K/mm3 Eos # (Auto) 0.05 (0.04-0.36) K/mm3 Baso # (Auto) 0.03 (0.01-0.08) K/mm3 Neutrophils % (Manual) % Band Neuts % (Manual) % Lymphocytes % (Manual) % Monocytes % (Manual) % Eosinophils % (Manual) % Basophils % (Manual) % Nucleated RBCs/100 WBC /100 WBC Manual Slide Review Abnormal smear RBC/WBC/PLT Morphology (Normal) Platelet Estimate Macrocytosis /hpf Smear Path Review Sodium (136-145) mEq/L Potassium (3.5-5.1) mEq/L Chloride (98-107) mEq/L Carbon Dioxide (21-32) mEq/L Anion Gap (5-15) BUN (7-18) mg/dL Creatinine (0.55-1.02) mg/dL Est Cr Clr Drug Dosing mL/min Estimated GFR (MDRD) (>60) mL/min BUN/Creatinine Ratio (14-18) Glucose (74-106) mg/dL POC Glucose (70-105) mg/dL Calcium (8.5-10.1) mg/dL Total Bilirubin (0.2-1.0) mg/dL AST (15-37) U/L ALT (14-59) U/L Alkaline Phosphatase (46-116) U/L Total Protein (6.4-8.2) g/dl Albumin (3.4-5.0) g/dl Globulin gm/dL Albumin/Globulin Ratio (1-2) Med Orders - Current: Current Medications Discontinued Medications Acetaminophen (Tylenol) 650 mg PO NOW ONE Stop: 08/05/19 11:31 Last Admin: 08/05/19 11:53 Dose: 650 mg Al Hydroxide/Mg Hydroxide (Mag-Al Plus) 30 ml PO Q4H PRN PRN Reason: Indigestion Dextrose/Water (Dextrose 50% In Water) 50 ml IVPUSH ASDIRECTED PRN PRN Reason: Hypoglycemia Last Admin: 08/06/19 21:05 Dose: 25 ml Enoxaparin Sodium (Lovenox) 40 mg SUBCUT DAILY STEPHANIE Enoxaparin Sodium (Lovenox) 30 mg SUBCUT Q24H STEPHANIE Last Admin: 08/08/19 16:10 Dose: Not Given Enoxaparin Sodium (Lovenox) 40 mg SUBCUT Q24H STEPHANIE Last Admin: 08/09/19 16:55 Dose: Not Given Sodium Chloride (Normal Saline) 2,000 mls @ 1,000 mls/hr IV .BOLUS STA Stop: 08/04/19 13:59 Last Admin: 08/04/19 12:15 Dose: 1,000 mls/hr Insulin Human Regular 100 unit (/ Sodium Chloride) 100 mls @ 4.08 mls/hr IV TITRATE STEPHANIE; Protocol Last Titration: 08/05/19 03:45 Dose: 0 units/kg/hr, 0 mls/hr Lactated Ringer's (Ringers, Lactated) 1,000 mls @ 1,000 mls/hr IV .BOLUS ONE Stop: 08/04/19 15:52 Last Admin: 08/04/19 14:57 Dose: 1,000 mls/hr Potassium Chloride/Sodium Chloride (1/2 Ns With 20 Meq Kcl) 1,000 mls @ 250 mls /hr IV ASDIRECTED STEPHANIE Last Admin: 08/04/19 18:00 Dose: 250 mls/hr Potassium Chloride/Dextrose/Sod Cl (D5 1/2 Ns W/ 20 Meq/L Kcl) 1,000 mls @ 250 mls/hr IV ASDIRECTED STEPHANIE Last Admin: 08/05/19 05:37 Dose: 250 mls/hr Magnesium Sulfate 2 gm/ Premix 50 mls @ 25 mls/hr IV ONETIME ONE Stop: 08/05/19 02:26 Last Admin: 08/05/19 00:40 Dose: 25 mls/hr Sodium Chloride (Sodium Chloride 0.45%) 1,000 mls @ 125 mls/hr IV ASDIRECTED STEPHANIE Last Admin: 08/05/19 06:17 Dose: 125 mls/hr Piperacillin Sod/Tazobactam (Sod 4.5 gm/ Sodium Chloride) 100 mls @ 200 mls/hr IV ONETIME ONE Stop: 08/06/19 13:59 Last Admin: 08/06/19 14:27 Dose: 200 mls/hr Piperacillin Sod/Tazobactam (Sod 4.5 gm/ Sodium Chloride) 100 mls @ 25 mls/hr IV Q8H [facility] Last Admin: 08/09/19 06:00 Dose: 25 mls/hr Albumin Human (Flexbumin 25%) 12.5 gm in 50 mls @ 100 mls/hr IV ONETIME ONE Stop: 08/07/19 07:56 Last Admin: 08/07/19 08:06 Dose: 100 mls/hr Insulin Glargine (Lantus) 15 unit SUBCUT DAILY [facility] Last Admin: 08/07/19 08:07 Dose: 15 units Insulin Glargine (Lantus) 8 unit SUBCUT DAILY [facility] Last Admin: 08/10/19 08:31 Dose: 8 units Insulin Human Lispro (Humalog) 0 unit SUBCUT QIDACANDBED [facility]; Protocol Last Admin: 08/08/19 17:58 Dose: 1 units Insulin Human [facility] ([facility]og) [facility] Last Admin: 08/05/19 19:38 Dose: Not Given Insulin Human Lispro (Humalog) 0 unit SUBCUT QIDACANDBED [facility]; Protocol Last Admin: 08/09/19 16:56 Dose: 1 unit Insulin Human Lispro (Humalog) 2 unit SUBCUT ONETIME ONE Stop: 08/09/19 04:18 Last Admin: 08/09/19 04:22 Dose: 2 unit Insulin Human Lispro (Humalog) 0 unit SUBCUT QIDACANDBED [facility]; Protocol Last Admin: 08/10/19 06:12 Dose: 2 unit Ketorolac Tromethamine (Toradol) 15 mg IVPUSH ONETIME ONE Stop: 08/05/19 08:31 Last Admin: 08/05/19 08:41 Dose: 15 mg Metoclopramide HCl (Reglan) 5 mg PO TIDAC [facility] Last Admin: 08/10/19 11:55 Dose: Not Given Ondansetron HCl (Zofran) 4 mg IVPUSH ONETIME ONE Stop: 08/04/19 12:01 Last Admin: 08/04/19 12:14 Dose: 4 mg Ondansetron HCl (Zofran) 4 mg IV Q4H PRN PRN Reason: Nausea/Vomiting Last Admin: 08/07/19 22:35 Dose: 4 mg Pantoprazole Sodium (Protonix) 40 mg PO BIDAC [facility] Last Admin: 08/10/19 05:09 Dose: 40 mg Scopolamine (Transderm-Scop) 1.5 mg TOP ONETIME ONE Stop: 08/05/19 19:46 Last Admin: 08/05/19 20:27 Dose: 1.5 mg Sertraline HCl (Zoloft) 100 mg PO DAILY [facility] Last Admin: 08/10/19 08:31 Dose: 100 mg Sodium Chloride (Saline Flush) 10 ml FLUSH ASDIRECTED PRN PRN Reason: Keep Vein Open Last Admin: 08/04/19 12:19 Dose: 10 ml Sucralfate (Carafate) 2 gm PO BEDTIME [facility] Last Admin: 08/09/19 20:42 Dose: 2 gm - Exam General: Reports: Alert, Oriented, Cooperative, No Acute Distress HEENT: Reports: Pupils Equal, Pupils Reactive, EOMI, Mucous Membr. Moist/[place]: Reports: Supple Lungs: Reports: Clear to Auscultation, Normal Respiratory Effort Cardiovascular: Reports: Regular Rate, Regular Rhythm GI/Abdominal Exam: Normal Bowel Sounds, Soft, Non-Tender, No Organomegaly, No Distention Back Exam: Reports: Normal Inspection, Full Range of Motion Extremities: Normal Inspection, Normal Range of Motion Skin: Reports: Warm, Dry, Intact Neurological: Reports: No New Focal Deficit Psy/Mental Status: Reports: Alert, Normal Affect, Normal Mood
--- NOTE | 2019-08-11 08:05 | DISCH ---
ADMISSION DATE: 08/04/2019 DISCHARGE DATE: 08/10/2019 ADDENDUM: FINAL DIAGNOSIS: 1. Severe resilience to treatment, painful dyspepsia. 2. Poorly-controlled diabetes type 1. 3. Question peptic ulcer disease with negative Helicobacter pylori (suspected based on clinical presentation and results of other tests). 4. Diabetes type 1. 5. Diabetic ketoacidosis. The patient was seen, examined, and discussed by me with Sohan Mendoza PA-C. The patient is a 29-year-old female who was admitted to the hospital on 08/04/2019 with severe epigastric abdominal pain, nausea, vomiting, dehydration, and was found with DKA. DKA resolved on fluid supplementation and insulin drip, but the patient's severe painful dyspepsia persisted. We did diligent workup for the patient's gallbladder disease, and the patient was found with normal right upper quadrant ultrasound and HIDA scan. The patient did have previously a gastric emptying study done in outside facility in February 2019 that was normal as per the patient. Two days prior to discharge, we still decided to try the patient on p.o. doses of Reglan that really and nicely improved the patient's abdominal pain, resolved nausea and vomiting, and patient was able to tolerate much more food than previously. She will be discharged home in satisfactory condition in the care of primary physician with p.r.n. doses of Reglan and antacid therapy. We will adjust doses of insulins, and in 2 weeks after discharge, we will recommend for surgical followup appointment for outpatient upper GI endoscopy to verify the strongly suspected diagnosis of peptic ulcer disease that could cause the patient's painful dyspepsia. For details of the patient's history, clinical presentation, test results, physical exam, course of hospital stay, discharge medications, and recommendations, please see discharge summary and discharge instructions prepared by Sohan Mendoza PA-C. MMODAL /[id number]
== END 2019-08-10 12:39 | disposition home or self-care (01) | DRG 420 ==
LOC: JD.ED 11:38 → JD.ICU 15:00
PROVIDERS: ADMIT Family Medicine; ATTEND Family Medicine
DX: E10.10 Type 1 diabetes mellitus with ketoacidosis without coma (principal); G93.41 Metabolic encephalopathy; E10.43 Type 1 diabetes mellitus with diabetic autonomic (poly)neuropathy; K31.84 Gastroparesis; E46 Unspecified protein-calorie malnutrition; K81.9 Cholecystitis, unspecified; D70.9 Neutropenia, unspecified; N17.9 Acute kidney failure, unspecified; K27.9 Peptic ulcer, site unspecified, unspecified as acute or chronic, without hemorrhage or perforation; E86.1 Hypovolemia
CPT/HCPCS: 36415; 36600; 51702; 76700; 76700-26; 78227; 78227-26; 80048; 80053; 80074; 80076; 80306; 81001; 82009; 82800; 82803; 82947; 82962; 83036; 83690; 83735; 83930; 84100; 84703; 85025; 85045; 99285; A9270-GY; A9537; J1815-GY; J1885; J2405; J2543; J3475; J3480; J7030; J7050; J7120; P9047

== ENCOUNTER 2019-09-24 18:48 | Emergency (ER) | payer BC ==
--- NOTE | 2019-09-24 20:47 | EDM.PDOC ---
ED HPI GENERAL MEDICAL PROBLEM - General Chief Complaint: General Stated Complaint: SWELLING Time Seen by Provider: 09/24/19 19:39 Source of Information: Reports: Patient History Limitations: Reports: No Limitations - History of Present Illness INITIAL COMMENTS - FREE TEXT/NARRATIVE: TRIAGE NOTE -- Pt presents to ER for complaints of edema. Pt states that she started noticing fluid build up in her ankles all the way up to her abdomen over the last week. Pt states that she has put on 16 lbs of weight over the last week. Pt went to the [facility] and they sent her over here. Pt has a firm and distended abdomen, 1+ pitting edema to bilateral feet. Pt denies any CP or SOB. Pt has a hx of Type 1 diabetes that is well controlled. Pt denies having any heart, kidney, liver or respiratory issues. Pt is alert and oriented, ambulated back to ER without issue. [ End ] As above. Risk factors consist of diabetes with gastroparesis. Risk of malnutrition. Risk of hypoalbuminemia. No other contributory history per patient. She has not been ill. Contends that she is eating well. Denies respiratory problems fever or any other symptom of acute medical illness. History of DKA in the not too distant past. Abdomen Pain Score (Numeric/FACES): 10 - Related Data Allergies Allergy/AdvReac Type Severity Reaction Status Date / Time No Known Allergies Allergy Verified 09/24/19 19:43 Home Meds: Home Meds Insulin Lispro [Humalog] See Protocol SQ TID 04/05/19 [History] Sertraline [Zoloft] 100 mg PO DAILY 04/05/19 [History] Insulin Glargine,Hum.Rec.Anlog [Basaglar Kwikpen U-100] 20 units SQ BEDTIME 03/04 [History] Metoclopramide [Reglan] 5 mg PO ACBREAKFASTANDBED 09/24/19 [History] Pantoprazole [ProTONIX] 40 mg PO ACBREAKFASTANDBED 09/24/19 [History] Past Medical History HEENT History: Reports: None Cardiovascular History: Reports: None Respiratory History: Reports: None Gastrointestinal History: Reports: Other (See Below) Other Gastrointestinal History: Gastritis 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 Musculoskeletal History: Reports: None Neurological History: Reports: Headaches, Chronic Psychiatric History: Reports: Depression Endocrine/Metabolic History: Reports: Diabetes, Type I Hematologic History: Reports: None Immunologic History: Reports: None Oncologic (Cancer) History: Reports: None Dermatologic History: Reports: None - Infectious Disease History Infectious Disease History: Reports: Chicken Pox - Past Surgical History Female Surgical History: Reports: Section Social & Family History - Family History Family Medical History: Noncontributory - Tobacco Use Smoking Status *Q: Never Smoker - Caffeine Use Caffeine Use: Reports: Tea - Recreational Drug Use Recreational Drug Use: No ED ROS GENERAL - Review of Systems Review Of Systems: Comprehensive ROS is negative, except as noted in HPI. ED EXAM, GENERAL - Physical Exam Exam: See Below Exam Limited By: No Limitations General Appearance: Alert, No Apparent Distress Eye Exam: Bilateral Eye: EOMI, PERRL Ears: Normal External Exam Nose: Normal Inspection Throat/Mouth: Normal Inspection Head: Atraumatic, Normocephalic Neck: Normal Inspection, Supple Respiratory/Chest: No Respiratory Distress, Lungs Clear, Normal Breath Sounds Cardiovascular: Regular Rate, Rhythm GI/Abdominal: Soft, Distended (Mildly so), Tender (Mild diffuse tenderness). No : Guarding, Rigid, Rebound Back Exam: Normal Inspection Extremities: Other (Mild slightly pitting edema of the lower extremities) Neurological: Alert, Oriented Psychiatric: Other (Contentious) Skin Exam: Warm, Dry Course - Vital Signs Last Recorded V/S: Last Vital Signs Temp 37.1 C 09/24/19 19:39 Pulse 87 09/24/19 19:39 Resp 16 09/24/19 19:39 BP 112/87 09/24/19 19:39 Pulse Ox 99 09/24/19 19:39 - Orders/Labs/Meds Labs: Laboratory Tests 09/24/19 09/24/19 09/24/19 Range/Units 19:53 19:53 20:00 WBC 1.74 L* (3.98-10.04) K/mm3 RBC 3.42 L (3.98-5.22) M/mm3 Hgb 11.9 (11.2-15.7) gm/dl Hct 36.7 (34.1-44.9) % MCV 107.3 H D (79.4-94.8) fl MCH 34.8 H (25.6-32.2) pg MCHC 32.4 (32.2-35.5) g/dl RDW Std Deviation 54.3 H (36.4-46.3) fL Plt Count 226 (182-369) K/mm3 MPV 10.5 (9.4-12.3) fl Neutrophils % (Manual) 32 L (40-60) % Band Neutrophils % 0 (0-10) % Lymphocytes % (Manual) 52 H (20-40) % Atypical Lymphs % 0 % Monocytes % (Manual) 15 H (2-10) % Eosinophils % (Manual) 2 (0.7-5.8) % Basophils % (Manual) 0 L (0.1-1.2) Platelet Estimate Adequate Anisocytosis 2+ moderate Macrocytosis 2+ moderate Sodium (136-145) mEq/L Potassium (3.5-5.1) mEq/L Chloride (98-107) mEq/L Carbon Dioxide (21-32) mEq/L Anion Gap (5-15) BUN (7-18) mg/dL Creatinine (0.55-1.02) mg/dL Est Cr Clr Drug Dosing mL/min Estimated GFR (MDRD) (>60) mL/min BUN/Creatinine Ratio (14-18) Glucose (74-106) mg/dL Calcium (8.5-10.1) mg/dL Total Bilirubin (0.2-1.0) mg/dL AST (15-37) U/L ALT (14-59) U/L Alkaline Phosphatase (46-116) U/L Total Protein (6.4-8.2) g/dl Albumin (3.4-5.0) g/dl Globulin gm/dL Albumin/Globulin Ratio (1-2) Urine Color Yellow (Yellow) Urine Appearance Clear (Clear) Urine pH 7.0 (5.0-8.0) Ur Specific [place] 1.025 (1.005-1.030) Urine Protein 1+ H (Negative) Urine Glucose (UA) 2+ H (Negative) Urine Ketones 1+ H (Negative) Urine Occult Blood Negative (Negative) Urine Nitrite Negative (Negative) Urine Bilirubin Negative (Negative) Urine Urobilinogen 0.2 (0.2-1.0) Ur Leukocyte Esterase Negative (Negative) Urine RBC 0-5 (0-5) /hpf Urine WBC 0-5 (0-5) /hpf Ur Squamous Epith Cells 0-5 (0-5) /hpf Urine Bacteria Occasional (FEW) /hpf Urine Mucus Not seen (FEW) /hpf Urine HCG, Qual Negative (NEGATIVE) 09/24/19 Range/Units 20:00 WBC (3.98-10.04) K/mm3 RBC (3.98-5.22) M/mm3 Hgb (11.2-15.7) gm/dl Hct (34.1-44.9) % MCV (79.4-94.8) fl MCH (25.6-32.2) pg MCHC (32.2-35.5) g/dl RDW Std Deviation (36.4-46.3) fL Plt Count (182-369) K/mm3 MPV (9.4-12.3) fl Neutrophils % (Manual) (40-60) % Band Neutrophils % (0-10) % Lymphocytes % (Manual) (20-40) % Atypical Lymphs % % Monocytes % (Manual) (2-10) % Eosinophils % (Manual) (0.7-5.8) % Basophils % (Manual) (0.1-1.2) Platelet Estimate Anisocytosis Macrocytosis Sodium 144 (136-145) mEq/L Potassium 4.2 (3.5-5.1) mEq/L Chloride 108 H (98-107) mEq/L Carbon Dioxide 30 (21-32) mEq/L Anion Gap 10.2 (5-15) BUN 24 H (7-18) mg/dL Creatinine 0.7 (0.55-1.02) mg/dL Est Cr Clr Drug Dosing 86.71 mL/min Estimated GFR (MDRD) > 60 (>60) mL/min BUN/Creatinine Ratio 34.3 H (14-18) Glucose 151 H (74-106) mg/dL Calcium 8.4 L (8.5-10.1) mg/dL Total Bilirubin 0.4 (0.2-1.0) mg/dL AST 1181 H (15-37) U/L ALT 407 H (14-59) U/L Alkaline Phosphatase 204 H (46-116) U/L Total Protein 5.6 L (6.4-8.2) g/dl Albumin 2.6 L (3.4-5.0) g/dl Globulin 3.0 gm/dL Albumin/Globulin Ratio 0.9 L (1-2) Urine Color (Yellow) Urine Appearance (Clear) Urine pH (5.0-8.0) Ur Specific [place] (1.005-1.030) Urine Protein (Negative) Urine Glucose (UA) (Negative) Urine Ketones (Negative) Urine Occult Blood (Negative) Urine Nitrite (Negative) Urine Bilirubin (Negative) Urine Urobilinogen (0.2-1.0) Ur Leukocyte Esterase (Negative) Urine RBC (0-5) /hpf Urine WBC (0-5) /hpf Ur Squamous Epith Cells (0-5) /hpf Urine Bacteria (FEW) /hpf Urine Mucus (FEW) /hpf Urine HCG, Qual (NEGATIVE) - Re-Assessments/Exams Free Text/Narrative Re-Assessment/Exam: 09/24/19 22:36 The patient was given to understand the issues that she has medically at present. She has a neutropenia. It is not too different from previous values but has not been addressed as far as we can tell. Patient is not aware of this problem though it is been present at least since July of this year. She also has liver functions that are worsening. Her edema is probably secondary to her hypoalbuminemia. That in turn is probably a result of her gastroparesis producing a malnutrition. The patient rejects this explanation and thinks that the clinic sent her here for us to simply solve this problem right here right now. She absolutely rejects the idea that she could be malnourished. We tried to direct her to outpatient care and would arrange to have her seen tomorrow morning. She is unwilling to do that. She says she has seen an bilingual elementary school teacher locally 1 time and refuses to go back. She was argumentative and contentious and we felt that we needed to offer her something. Call was placed to hospitalist to see if the additional work-up could be done here through an observation admission. We also called Derek to see if someone would assure us that she could be seen tomorrow. In the midst of trying to negotiate appropriate care for her she eloped from the facility. Departure - Departure Time of Disposition: 22:45 Disposition: Eloped 07 Condition: Undetermined Clinical Impression: Mild generalized edema, Hypoalbuminemia due to protein-calorie malnutrition, Elevated liver function tests, History of diabetic gastroparesis, Left against medical advice Neutropenia Qualifiers: Neutropenia type: unspecified Qualified Code(s): D70.9 - Neutropenia, unspecified - Discharge Information Referrals: PCP,None [Primary Care Provider] - Forms: ED Department Discharge Sepsis Event Note (ED) - Evaluation Sepsis Screening Result: No Definite Risk - Focused Exam Vital Signs: Vital Signs Temp Pulse Resp BP Pulse Ox 09/24/19 19:39 37.1 C 87 16 112/87 99
== END 2019-09-24 22:35 | disposition left against medical advice (07) ==
LOC: JD.ED 18:48
DX: E88.09 Other disorders of plasma-protein metabolism, not elsewhere classified (principal); E46 Unspecified protein-calorie malnutrition; D70.9 Neutropenia, unspecified; R79.89 Other specified abnormal findings of blood chemistry; E10.43 Type 1 diabetes mellitus with diabetic autonomic (poly)neuropathy; K31.84 Gastroparesis; F32.9 Major depressive disorder, single episode, unspecified; Z79.4 Long term (current) use of insulin; Z79.899 Other long term (current) drug therapy
CPT/HCPCS: 36415; 80053; 81001; 81025; 85007; 85027; 99283; 99284

== ENCOUNTER 2019-12-04 15:53 | Inpatient (IN) | payer BC ==
[2019-12-04] MEDS ORDERED: Sodium Chloride 0.9% 10 ML Syringe FLUSH PRN (16:52)
[2019-12-04] MEDS ORDERED: Ondansetron 4 MG/2 ML SDV IVPUSH ONE (16:52)
[2019-12-04] MEDS ORDERED: Sodium Chloride 0.9% 1,000 ML IV SCH (17:00)
[2019-12-04] MEDS ORDERED: Insulin Regular, Human 100 Units/ML 3 ML Vial IVPUSH ONE (17:28)
--- NOTE | 2019-12-04 17:38 | EDM.PDOC ---
ED HPI GENERAL MEDICAL PROBLEM - General Chief Complaint: Diabetic Complaint Stated Complaint: HIGH BLOOD SUGAR AND ABNORMAL TEST FINDINGS Time Seen by Provider: 12/04/19 16:22 Source of Information: Reports: Patient, RN Notes Reviewed - History of Present Illness INITIAL COMMENTS - FREE TEXT/NARRATIVE: 29 yr old insulin diabetic running high blood sugars for the last several days. She went to the clinic today for pre colonoscopy labs, found to have glucose of around 700. she has been vomiting off and on the last 2 days. Mild abd pain and cramping at this time. No fever or chill. Voiding frequently. Mouth feels very dry. Abdomen Pain Score (Numeric/FACES): 8 - Related Data Allergies Allergy/AdvReac Type Severity Reaction Status Date / Time No Known Allergies Allergy Verified 12/04/19 16:30 Home Meds: Home Meds Insulin Glargine,Hum.Rec.Anlog [Basaglar Kwikpen U-100] 22 units SQ DAILY 09/24/19 [History] Pantoprazole [ProTONIX] 40 mg PO DAILY 09/24/19 [History] Cyanocobalamin (Vitamin B12) [Vitamin B12] 1,000 mcg PO DAILY 12/04/19 [History] Furosemide [Lasix] 40 mg PO DAILY 12/04/19 [History] Insulin Aspart [NovoLOG] 0 unit SQ ASDIRECTED 12/04/19 [History] Spironolactone [Aldactone] 100 mg PO DAILY 12/04/19 [History] bisacodyL [Dulcolax] 5 mg PO QID 12/04/19 [History] Past Medical History HEENT History: Reports: None Cardiovascular History: Reports: None Respiratory History: Reports: Other (See Below) Other Respiratory History: Nodules on Lungs Gastrointestinal History: Reports: Fatty Liver, Other (See Below) Other Gastrointestinal History: Gastritis 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 Psychiatric History: Reports: Depression Endocrine/Metabolic History: Reports: Diabetes, Type I Hematologic History: Reports: None Immunologic History: Reports: None Oncologic (Cancer) History: Reports: None Dermatologic History: Reports: None - Infectious Disease History Infectious Disease History: Reports: None - Past Surgical History GI Surgical History: Reports: Other (See Below) Other GI Surgeries/Procedures: Liver Biopsy Female Surgical History: Reports: Section Social & Family History - Family History Family Medical History: Noncontributory - Tobacco Use Smoking Status *Q: Never Smoker - Caffeine Use Caffeine Use: Reports: Coffee - Recreational Drug Use Recreational Drug Use: No ED ROS GENERAL - Review of Systems Review Of Systems: See Below Constitutional: Denies: Fever, Chills, Diaphoresis HEENT: Denies: Rhinitis, Throat Pain Respiratory: Denies: Shortness of Breath Cardiovascular: Denies: Chest Pain GI/Abdominal: Reports: Abdominal Pain, Constipation, Nausea, Vomiting. Denies: Diarrhea : Reports: No Symptoms Musculoskeletal: Reports: No Symptoms Skin: Reports: No Symptoms Neurological: Reports: Dizziness ED EXAM GENERAL NO PERIP PULSE - Physical Exam Exam: See Below General Appearance: Alert, No Apparent Distress Head: Atraumatic Neck: Supple Respiratory/Chest: No Respiratory Distress, Lungs Clear, Normal Breath Sounds Cardiovascular: Tachycardia GI/Abdominal: Soft, Tender (very mild diffuse tenderness) Back Exam: No: CVA Tenderness (L), CVA Tenderness (R) Extremities: Normal Inspection, Normal Range of Motion Neurological: Alert, Oriented, No Motor/Sensory Deficits Skin Exam: Warm, Dry, Normal Color EKG INTERPRETATION EKG Date: 12/04/19 Rhythm: Other (sinus tachy) Rate (Beats/Min): 103 [place]: Normal P-Wave: Present QRS: Normal ST-T: Normal Course - Vital Signs Last Recorded V/S: Last Vital Signs Temp 97.3 F 12/04/19 16:27 Pulse 102 H 12/04/19 16:27 Resp 16 12/04/19 16:27 BP 113/90 12/04/19 16:27 Pulse Ox 95 12/04/19 16:27 - Orders/Labs/Meds Orders: Active Orders 24 hr Category Date Time Status EKG 12 Lead [EKG Documentation Completion] [RC] STAT Care 12/04/19 16:59 Active POC Glucose [Blood Glucose Check, Bedside] [RC] ONETIME Care 12/04/19 16:52 Active POC Glucose [Blood Glucose Check, Bedside] [RC] ONETIME Care 12/04/19 19:04 Active Peripheral IV Care [RC] . DIRECTED Care 12/04/19 16:53 Active GLUCOSE RANDOM [CHEM] Stat Lab 12/04/19 19:23 Ordered Insulin Regular, Human [HumuLIN R] 100 unit Med 12/04/19 17:30 Active Sodium Chloride 0.9% [Normal Saline] 99 ml IV TITRATE Sodium Chloride 0.9% [Normal Saline] 1,000 ml Med 12/04/19 17:00 Active IV ONETIME Sodium Chloride 0.9% [Normal Saline] 1,000 ml Med 12/04/19 18:32 Active IV ONETIME Sodium Chloride 0.9% [Saline Flush] Med 12/04/19 16:52 Active 10 ml FLUSH ASDIRECTED PRN Peripheral IV Insertion Adult [OM.PC] Stat Oth 12/04/19 16:52 Ordered Medication Orders Sodium Chloride (Normal Saline) 1,000 mls @ 999 mls/hr IV ONETIME STEPHANIE Last Admin: 12/04/19 17:26 Dose: 999 mls/hr Documented by: STACI Insulin Human Regular 100 unit (/ Sodium Chloride) 100 mls @ 5.398 mls/hr IV TITRATE STEPHANIE; Protocol Last Admin: 12/04/19 17:59 Dose: 0.1 units/kg/hr, 5.398 mls/hr Documented by: STACI Cosigned by: QUAN Sodium Chloride (Normal Saline) 1,000 mls @ 999 mls/hr IV ONETIME ONE Stop: 12/04/19 19:32 Last Admin: 12/04/19 18:38 Dose: 999 mls/hr Documented by: STACI Sodium Chloride (Saline Flush) 10 ml FLUSH ASDIRECTED PRN PRN Reason: Keep Vein Open Last Admin: 12/04/19 17:26 Dose: 10 ml Documented by: STACI Labs: Laboratory Tests 12/04/19 12/04/19 12/04/19 Range/Units 16:30 16:35 16:35 WBC 4.48 (3.98-10.04) K/mm3 RBC 4.31 (3.98-5.22) M/mm3 Hgb 13.9 D (11.2-15.7) gm/dl Hct 40.5 (34.1-44.9) % MCV 94.0 D (79.4-94.8) fl MCH 32.3 H (25.6-32.2) pg MCHC 34.3 (32.2-35.5) g/dl RDW Std Deviation 40.5 (36.4-46.3) fL Plt Count 240 (182-369) K/mm3 MPV 11.8 (9.4-12.3) fl Neut % (Auto) 69.4 (34.0-71.1) % Lymph % (Auto) 22.8 (19.3-51.7) % [place] % (Auto) 5.8 (4.7-12.5) % Eos % (Auto) 0.9 (0.7-5.8) Baso % (Auto) 0.9 (0.1-1.2) % Neut # (Auto) 3.11 (1.56-6.13) K/mm3 Lymph # (Auto) 1.02 L (1.18-3.74) K/mm3 [place] # (Auto) 0.26 (0.24-0.36) K/mm3 Eos # (Auto) 0.04 (0.04-0.36) K/mm3 Baso # (Auto) 0.04 (0.01-0.08) K/mm3 Puncture Site ABG pH (7.35-7.45) ABG pCO2 (35.0-45.0) mmHg ABG pO2 (80.0-100.0) mmHg ABG HCO3 (22.0-26.0) meq/L ABG O2 Saturation (96.0-97.0) % ABG Base Excess (-2-2.0) Graham Test O2 Delivery Device FiO2 (21.00-100.00) % Sodium 121 L D (136-145) mEq/L Potassium 5.5 H (3.5-5.1) mEq/L Chloride 85 L D (98-107) mEq/L Carbon Dioxide 26 (21-32) mEq/L Anion Gap 15.5 H (5-15) BUN 31 H (7-18) mg/dL Creatinine 1.0 (0.55-1.02) mg/dL Est Cr Clr Drug Dosing 60.70 mL/min Estimated GFR (MDRD) > 60 (>60) mL/min BUN/Creatinine Ratio 31.0 H (14-18) Glucose 869 H* (74-106) mg/dL Calcium 9.4 (8.5-10.1) mg/dL Total Bilirubin 0.8 (0.2-1.0) mg/dL AST 32 (15-37) U/L ALT 55 (14-59) U/L Alkaline Phosphatase 250 H (46-116) U/L Total Protein 7.4 (6.4-8.2) g/dl Albumin 3.7 (3.4-5.0) g/dl Globulin 3.7 gm/dL Albumin/Globulin Ratio 1.0 (1-2) HCG, Qual (NEGATIVE) Urine Color Yellow (Yellow) Urine Appearance Clear (Clear) Urine pH 6.5 (5.0-8.0) Ur Specific [place] 1.010 (1.005-1.030) Urine Protein Negative (Negative) Urine Glucose (UA) 2+ H (Negative) Urine Ketones 1+ H (Negative) Urine Occult Blood Negative (Negative) Urine Nitrite Negative (Negative) Urine Bilirubin Negative (Negative) Urine Urobilinogen 0.2 (0.2-1.0) Ur Leukocyte Esterase Negative (Negative) Urine RBC Not seen (0-5) /hpf Urine WBC 0-5 (0-5) /hpf Ur Squamous Epith Cells 0-5 (0-5) /hpf Urine Bacteria Not seen (FEW) /hpf Urine Mucus Not seen (FEW) /hpf Ketones (0.0-0.3) mM 12/04/19 12/04/19 12/04/19 Range/Units 16:35 16:35 17:38 WBC (3.98-10.04) K/mm3 RBC (3.98-5.22) M/mm3 Hgb (11.2-15.7) gm/dl Hct (34.1-44.9) % MCV (79.4-94.8) fl MCH (25.6-32.2) pg MCHC (32.2-35.5) g/dl RDW Std Deviation (36.4-46.3) fL Plt Count (182-369) K/mm3 MPV (9.4-12.3) fl Neut % (Auto) (34.0-71.1) % Lymph % (Auto) (19.3-51.7) % [place] % (Auto) (4.7-12.5) % Eos % (Auto) (0.7-5.8) Baso % (Auto) (0.1-1.2) % Neut # (Auto) (1.56-6.13) K/mm3 Lymph # (Auto) (1.18-3.74) K/mm3 [place] # (Auto) (0.24-0.36) K/mm3 Eos # (Auto) (0.04-0.36) K/mm3 Baso # (Auto) (0.01-0.08) K/mm3 Puncture Site Lt radial ABG pH 7.37 (7.35-7.45) ABG pCO2 43.3 (35.0-45.0) mmHg ABG pO2 83.0 (80.0-100.0) mmHg ABG HCO3 24.7 (22.0-26.0) meq/L ABG O2 Saturation 94.9 L (96.0-97.0) % ABG Base Excess -0.2 (-2-2.0) Graham Test Positive O2 Delivery Device Room air FiO2 0.00 L (21.00-100.00) % Sodium (136-145) mEq/L Potassium (3.5-5.1) mEq/L Chloride (98-107) mEq/L Carbon Dioxide (21-32) mEq/L Anion Gap (5-15) BUN (7-18) mg/dL Creatinine (0.55-1.02) mg/dL Est Cr Clr Drug Dosing mL/min Estimated GFR (MDRD) (>60) mL/min BUN/Creatinine Ratio (14-18) Glucose (74-106) mg/dL Calcium (8.5-10.1) mg/dL Total Bilirubin (0.2-1.0) mg/dL AST (15-37) U/L ALT (14-59) U/L Alkaline Phosphatase (46-116) U/L Total Protein (6.4-8.2) g/dl Albumin (3.4-5.0) g/dl Globulin gm/dL Albumin/Globulin Ratio (1-2) HCG, Qual Negative (NEGATIVE) Urine Color (Yellow) Urine Appearance (Clear) Urine pH (5.0-8.0) Ur Specific [place] (1.005-1.030) Urine Protein (Negative) Urine Glucose (UA) (Negative) Urine Ketones (Negative) Urine Occult Blood (Negative) Urine Nitrite (Negative) Urine Bilirubin (Negative) Urine Urobilinogen (0.2-1.0) Ur Leukocyte Esterase (Negative) Urine RBC (0-5) /hpf Urine WBC (0-5) /hpf Ur Squamous Epith Cells (0-5) /hpf Urine Bacteria (FEW) /hpf Urine Mucus (FEW) /hpf Ketones 4.37 (0.0-0.3) mM Meds: Medications Generic Name Dose Route Start Last Admin Trade Name Gonzalo PRN Reason Stop Dose Admin Sodium Chloride 1,000 mls @ 999 mls/hr 12/04/19 17:00 12/04/19 17:26 Normal Saline IV 999 mls/hr ONETIME STEPHANIE Administration Insulin Human Regular 100 unit 100 mls @ 5.398 mls/hr 12/04/19 17:30 12/04/19 17:59 / Sodium Chloride IV 0.1 units/kg/hr TITRATE STEPHANIE 5.398 mls/hr Administration Protocol 0.1 UNITS/KG/HR Sodium Chloride 1,000 mls @ 999 mls/hr 12/04/19 18:32 12/04/19 18:38 Normal Saline IV 12/04/19 19:32 999 mls/hr ONETIME ONE Administration Sodium Chloride 10 ml 12/04/19 16:52 12/04/19 17:26 Saline Flush FLUSH 10 ml ASDIRECTED PRN Administration Keep Vein Open Discontinued Medications Generic Name Dose Route Start Last Admin Trade Name Gonzalo PRN Reason Stop Dose Admin Insulin Human Regular 5 unit 12/04/19 17:28 12/04/19 18:02 Humulin R IVPUSH 12/04/19 17:29 5 unit ONETIME ONE Administration Protocol Ondansetron HCl 4 mg 12/04/19 16:52 12/04/19 17:26 Zofran IVPUSH 12/04/19 16:53 4 mg ONETIME ONE Administration - Re-Assessments/Exams Free Text/Narrative Re-Assessment/Exam: 12/04/19 19:01. glucose 869. ABG's do not show ketoacidosis. Anion gap, Co2 almost nl. Na 121 but uncorrected for hyperglycemia. Pt was given insulin 5 units IV, started on low dose insulin drip protocol. About time for repeat glucose. Have given 1 liter NS, 2nd liter running. Will admit ICU with consideration of insulin drip from glucose of 869. 12/04/19 19:15. repeat glucose greater than 400, lab called to draw. Vitals remain stable. Feeling better. Departure - Departure Time of Disposition: 18:54 Disposition: Admitted As Inpatient 68 Condition: Fair Clinical Impression: Hyperglycemia - Discharge Information Referrals: Alli Santoro MD [Primary Care Provider] - Forms: ED Department Discharge Sepsis Event Note (ED) - Evaluation Sepsis Screening Result: No Definite Risk - Focused Exam Vital Signs: Vital Signs Temp Pulse Resp BP Pulse Ox 12/04/19 16:27 97.3 F 102 H 16 113/90 95 ED Communication - Discussed Case With (1) Discussed Case With (1): Admitting Provider (Dr Wright, decision to admit at about 18:50.) - My Orders Last 24 Hours: My Active Orders 12/04/19 16:52 POC Glucose [Blood Glucose Check, Bedside] [RC] ONETIME Sodium Chloride 0.9% [Saline Flush] 10 ml FLUSH ASDIRECTED PRN Peripheral IV Insertion Adult [OM.PC] Stat 12/04/19 16:53 Peripheral IV Care [RC] . DIRECTED 12/04/19 16:59 EKG 12 Lead [EKG Documentation Completion] [RC] STAT 12/04/19 17:00 Sodium Chloride 0.9% [Normal Saline] 1,000 ml IV ONETIME 12/04/19 17:30 Insulin Regular, Human [HumuLIN R] 100 unit Sodium Chloride 0.9% [Normal Saline] 99 ml IV TITRATE 12/04/19 18:32 Sodium Chloride 0.9% [Normal Saline] 1,000 ml IV ONETIME 12/04/19 19:04 POC Glucose [Blood Glucose Check, Bedside] [RC] ONETIME 12/04/19 19:23 GLUCOSE RANDOM [CHEM] Stat - Assessment/Plan Last 24 Hours: My Active Orders 12/04/19 16:52 POC Glucose [Blood Glucose Check, Bedside] [RC] ONETIME Sodium Chloride 0.9% [Saline Flush] 10 ml FLUSH ASDIRECTED PRN Peripheral IV Insertion Adult [OM.PC] Stat 12/04/19 16:53 Peripheral IV Care [RC] . DIRECTED 12/04/19 16:59 EKG 12 Lead [EKG Documentation Completion] [RC] STAT 12/04/19 17:00 Sodium Chloride 0.9% [Normal Saline] 1,000 ml IV ONETIME 12/04/19 17:30 Insulin Regular, Human [HumuLIN R] 100 unit Sodium Chloride 0.9% [Normal Saline] 99 ml IV TITRATE 12/04/19 18:32 Sodium Chloride 0.9% [Normal Saline] 1,000 ml IV ONETIME 12/04/19 19:04 POC Glucose [Blood Glucose Check, Bedside] [RC] ONETIME 12/04/19 19:23 GLUCOSE RANDOM [CHEM] Stat
[2019-12-04] MEDS ORDERED: Sodium Chloride 0.9% 1,000 ML IV ONE (18:32)
[2019-12-04] MEDS ORDERED: Lactated Ringers 1,000 ML IV ONE (20:03)
== END 2019-12-04 20:45 | disposition home or self-care (01) | DRG 420 ==
LOC: JD.ED 15:53 → JD.ICU 19:49
PROVIDERS: ADMIT Family Medicine; ATTEND Family Medicine
DX: E10.65 Type 1 diabetes mellitus with hyperglycemia (principal); F32.9 Major depressive disorder, single episode, unspecified
CPT/HCPCS: 36415; 36600; 80053; 81001; 82009; 82803; 82947; 82962; 84703; 85025; 93005; 96361; 96374; 99285-25; J1815-GY; J2405; J7030; J7050

== ENCOUNTER 2019-12-20 18:00 | Emergency (ER) | payer BC ==
[2019-12-20] MEDS ORDERED: Sodium Chloride 0.9% 10 ML Syringe FLUSH PRN (18:56)
[2019-12-20] MEDS ORDERED: Sodium Chloride 0.9% 10 ML Syringe FLUSH ONE (20:44)
[2019-12-20] MEDS ORDERED: Diatrizoate Meglumine/Diatrizoate Sodium 37% 120 ML Bottle PO ONE (20:44)
[2019-12-20] MEDS ORDERED: Iopamidol 612 MG/ML 100 ML Bottle IVPUSH ONE (20:44)
--- NOTE | 2019-12-20 21:11 | EDM.PDOC ---
ED HPI GENERAL MEDICAL PROBLEM - General Chief Complaint: General Stated Complaint: SWELLING AND PAIN GAINED 16 POUNDS IN 5 DAYS Time Seen by Provider: 12/20/19 18:16 Source of Information: Reports: Patient - History of Present Illness INITIAL COMMENTS - FREE TEXT/NARRATIVE: Patient is a 29-year-old female presenting to the emergency department with complaints of generalized body edema and abdominal distention. Patient states she is had problems with this in the past. She has been on a regimen of Lasix 40 mg with spironolactone 100 mg daily, however her GI doctor had her stop this a number of week back. She states that since that time she has been progressively gaining weight. She estimates that over the last 5 days she has gained 16 pounds. Her abdomen is distended she states that that "happened overnight ". She does report that she has not had a bowel movement for about 5 or 6 days. She has been using [id number] laxatives such as Dulcolax and milk of magnesia without relief. She denies any nausea or vomiting. She has been passing gas. Patient has a history of type 1 diabetes with gastroparesis. She also states that she has chronic, generalized fluid retention of unknown etiology. 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 She has been told that her liver, kidneys, and heart are all functioning and is normal, however she has had a history of hepatitis as well as a fatty liver. She has had an echocardiogram done in the past and was found to have normal heart function. She states that she did restart her Lasix at 20 mg/day, however she continues to remove retained fluid. She denies any shortness of breath. Generalized Pain Score (Numeric/FACES): 8 - Related Data Allergies Allergy/AdvReac Type Severity Reaction Status Date / Time No Known Allergies Allergy Verified 12/20/19 18:13 Home Meds: Home Meds Pantoprazole [ProTONIX] 40 mg PO DAILY 09/24/19 [History] Cyanocobalamin (Vitamin B12) [Vitamin B12] 1,000 mcg PO DAILY 12/04/19 [History] Furosemide [Lasix] 20 mg PO DAILY 12/04/19 [History] Insulin Aspart [NovoLOG] 0 unit SQ ASDIRECTED 12/04/19 [History] bisacodyL [Dulcolax] 5 mg PO QID 12/04/19 [History] Insulin Degludec [Tresiba] 26 units SQ DAILY 12/20/19 [History] Past Medical History HEENT History: Reports: None Cardiovascular History: Reports: None Respiratory History: Reports: Other (See Below) Other Respiratory History: Nodules on Lungs Gastrointestinal History: Reports: Fatty Liver, Other (See Below) Other Gastrointestinal History: Gastritis, fatty liver 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 Psychiatric History: Reports: Depression Endocrine/Metabolic History: Reports: Diabetes, Type I Hematologic History: Reports: None Immunologic History: Reports: None Oncologic (Cancer) History: Reports: None Dermatologic History: Reports: None - Infectious Disease History Infectious Disease History: Reports: None - Past Surgical History GI Surgical History: Reports: Other (See Below) Other GI Surgeries/Procedures: Liver Biopsy Female Surgical History: Reports: Section Social & Family History - Family History Family Medical History: Noncontributory - Tobacco Use Smoking Status *Q: Never Smoker Second Hand Smoke Exposure: No - Caffeine Use Caffeine Use: Reports: None - Recreational Drug Use Recreational Drug Use: No ED ROS GENERAL - Review of Systems Review Of Systems: See Below Constitutional: Reports: No Symptoms. Denies: Fever, Chills, Weakness HEENT: Reports: No Symptoms Respiratory: Reports: No Symptoms. Denies: Shortness of Breath, Wheezing Cardiovascular: Reports: Edema. Denies: Chest Pain Endocrine: Reports: No Symptoms GI/Abdominal: Reports: Abdominal Pain, Constipation, Distension. Denies: Diarrhea, Nausea, Vomiting : Reports: No Symptoms. Denies: Dysuria Musculoskeletal: Reports: No Symptoms Skin: Reports: No Symptoms Neurological: Reports: No Symptoms Psychiatric: Reports: No Symptoms Hematologic/Lymphatic: Reports: No Symptoms Immunologic: Reports: No Symptoms ED EXAM, GENERAL - Physical Exam Exam: See Below General Appearance: Alert, WD/WN, No Apparent Distress Respiratory/Chest: No Respiratory Distress, Lungs Clear, Normal Breath Sounds, No Accessory Muscle Use, Chest Non-Tender Cardiovascular: Normal Peripheral Pulses, Regular Rate, Rhythm, No Edema, No Gallop, No JVD, No Murmur, No Rub GI/Abdominal: Normal Bowel Sounds, Soft, Non-Tender, No Organomegaly, No Abnormal Bruit, No Mass, Distended. No: Guarding, Rigid Neurological: Alert, Oriented, CN II-XII Intact, Normal Cognition, Normal Gait, Normal Reflexes, No Motor/Sensory Deficits Psychiatric: Normal Affect, Normal Mood Skin Exam: Warm, Dry, Intact, Normal Color, No Rash Course - Vital Signs Last Recorded V/S: Last Vital Signs Temp 98.4 F 12/20/19 18:07 Pulse 110 H 12/20/19 18:07 Resp 16 12/20/19 18:07 BP 129/90 12/20/19 18:07 Pulse Ox 99 12/20/19 18:07 - Orders/Labs/Meds Orders: Active Orders 24 hr Category Date Time Status Enema [RC] ASDIRECTED Care 12/20/19 21:19 Active Peripheral IV Care [RC] . DIRECTED Care 12/20/19 18:59 Active Abdomen Pelvis w Cont [CT] Stat Exams 12/20/19 18:58 Taken Sodium Chloride 0.9% [Saline Flush] Med 12/20/19 18:56 Active 10 ml FLUSH ASDIRECTED PRN Peripheral IV Insertion Adult [OM.PC] Stat Oth 12/20/19 18:56 Ordered Medication Orders Sodium Chloride (Saline Flush) 10 ml FLUSH ASDIRECTED PRN PRN Reason: Keep Vein Open Last Admin: 12/20/19 19:32 Dose: 10 ml Documented by: RICH Labs: Laboratory Tests 12/20/19 12/20/19 12/20/19 Range/Units 19:20 19:20 19:20 WBC 4.03 (3.98-10.04) K/mm3 RBC 3.95 L (3.98-5.22) M/mm3 Hgb 12.6 (11.2-15.7) gm/dl Hct 38.2 (34.1-44.9) % MCV 96.7 H (79.4-94.8) fl MCH 31.9 (25.6-32.2) pg MCHC 33.0 (32.2-35.5) g/dl RDW Std Deviation 44.0 (36.4-46.3) fL Plt Count 278 (182-369) K/mm3 MPV 11.2 (9.4-12.3) fl Neut % (Auto) 47.3 (34.0-71.1) % Lymph % (Auto) 41.4 (19.3-51.7) % Smith % (Auto) 8.4 (4.7-12.5) % Eos % (Auto) 1.2 (0.7-5.8) Baso % (Auto) 1.2 (0.1-1.2) % Neut # (Auto) 1.90 (1.56-6.13) K/mm3 Lymph # (Auto) 1.67 (1.18-3.74) K/mm3 Smith # (Auto) 0.34 (0.24-0.36) K/mm3 Eos # (Auto) 0.05 (0.04-0.36) K/mm3 Baso # (Auto) 0.05 (0.01-0.08) K/mm3 Sodium 139 D (136-145) mEq/L Potassium 4.6 (3.5-5.1) mEq/L Chloride 102 D (98-107) mEq/L Carbon Dioxide 26 (21-32) mEq/L Anion Gap 15.6 H (5-15) BUN 31 H (7-18) mg/dL Creatinine 0.7 (0.55-1.02) mg/dL Est Cr Clr Drug Dosing 104.24 mL/min Estimated GFR (MDRD) > 60 (>60) mL/min BUN/Creatinine Ratio 44.3 H (14-18) Glucose 134 H (74-106) mg/dL POC Glucose (70-105) mg/dL Calcium 9.5 (8.5-10.1) mg/dL Total Bilirubin 0.2 (0.2-1.0) mg/dL GGT 59 H (5-55) U/L AST 51 H (15-37) U/L ALT 69 H (14-59) U/L Alkaline Phosphatase 162 H (46-116) U/L C-Reactive Protein 0.6 (<1.0) mg/dL NT-Pro-B Natriuret Pep 314 H (0-125) pg/mL Total Protein 6.4 (6.4-8.2) g/dl Albumin 2.9 L (3.4-5.0) g/dl Globulin 3.5 gm/dL Albumin/Globulin Ratio 0.8 L (1-2) Urine Color (Yellow) Urine Appearance (Clear) Urine pH (5.0-8.0) Ur Specific [place] (1.005-1.030) Urine Protein (Negative) Urine Glucose (UA) (Negative) Urine Ketones (Negative) Urine Occult Blood (Negative) Urine Nitrite (Negative) Urine Bilirubin (Negative) Urine Urobilinogen (0.2-1.0) Ur Leukocyte Esterase (Negative) Urine RBC (0-5) /hpf Urine WBC (0-5) /hpf Ur Squamous Epith Cells (0-5) /hpf Urine Bacteria (FEW) /hpf Urine Mucus (FEW) /hpf Urine HCG, Qual (NEGATIVE) 12/20/19 12/20/19 12/20/19 Range/Units 19:30 19:30 20:56 WBC (3.98-10.04) K/mm3 RBC (3.98-5.22) M/mm3 Hgb (11.2-15.7) gm/dl Hct (34.1-44.9) % MCV (79.4-94.8) fl MCH (25.6-32.2) pg MCHC (32.2-35.5) g/dl RDW Std Deviation (36.4-46.3) fL Plt Count (182-369) K/mm3 MPV (9.4-12.3) fl Neut % (Auto) (34.0-71.1) % Lymph % (Auto) (19.3-51.7) % Smith % (Auto) (4.7-12.5) % Eos % (Auto) (0.7-5.8) Baso % (Auto) (0.1-1.2) % Neut # (Auto) (1.56-6.13) K/mm3 Lymph # (Auto) (1.18-3.74) K/mm3 Smith # (Auto) (0.24-0.36) K/mm3 Eos # (Auto) (0.04-0.36) K/mm3 Baso # (Auto) (0.01-0.08) K/mm3 Sodium (136-145) mEq/L Potassium (3.5-5.1) mEq/L Chloride (98-107) mEq/L Carbon Dioxide (21-32) mEq/L Anion Gap (5-15) BUN (7-18) mg/dL Creatinine (0.55-1.02) mg/dL Est Cr Clr Drug Dosing mL/min Estimated GFR (MDRD) (>60) mL/min BUN/Creatinine Ratio (14-18) Glucose (74-106) mg/dL POC Glucose 55 L (70-105) mg/dL Calcium (8.5-10.1) mg/dL Total Bilirubin (0.2-1.0) mg/dL GGT (5-55) U/L AST (15-37) U/L ALT (14-59) U/L Alkaline Phosphatase (46-116) U/L C-Reactive Protein (<1.0) mg/dL NT-Pro-B Natriuret Pep (0-125) pg/mL Total Protein (6.4-8.2) g/dl Albumin (3.4-5.0) g/dl Globulin gm/dL Albumin/Globulin Ratio (1-2) Urine Color Yellow (Yellow) Urine Appearance Clear (Clear) Urine pH 6.0 (5.0-8.0) Ur Specific [place] > or = 1.030 (1.005-1.030) Urine Protein Negative (Negative) Urine Glucose (UA) 2+ H (Negative) Urine Ketones Negative (Negative) Urine Occult Blood Negative (Negative) Urine Nitrite Negative (Negative) Urine Bilirubin Negative (Negative) Urine Urobilinogen 0.2 (0.2-1.0) Ur Leukocyte Esterase Trace H (Negative) Urine RBC 0-5 (0-5) /hpf Urine WBC 0-5 (0-5) /hpf Ur Squamous Epith Cells 5-10 H (0-5) /hpf Urine Bacteria Few (FEW) /hpf Urine Mucus Not seen (FEW) /hpf Urine HCG, Qual Negative (NEGATIVE) Meds: Medications Generic Name Dose Route Start Last Admin Trade Name Freq PRN Reason Stop Dose Admin Sodium Chloride 10 ml 12/20/19 18:56 12/20/19 19:32 Saline Flush FLUSH 10 ml ASDIRECTED PRN Administration Keep Vein Open Discontinued Medications Generic Name Dose Route Start Last Admin Trade Name Freq PRN Reason Stop Dose Admin Diatrizoate Meglum/Diatrizoate Sod 120 ml 12/20/19 20:44 12/20/19 20:45 Gastrografin 37% PO 12/20/19 20:45 120 ml ONETIME ONE Administration Iopamidol 100 ml 12/20/19 20:44 12/20/19 20:46 Isovue-300 (61%) IVPUSH 12/20/19 20:45 100 ml ONETIME ONE Administration Sodium Chloride 10 ml 12/20/19 20:44 12/20/19 20:46 Saline Flush FLUSH 12/20/19 20:45 10 ml ONETIME ONE Administration - Re-Assessments/Exams Free Text/Narrative Re-Assessment/Exam: Patient is a 29-year-old female presenting to the ER with concerns of abdominal distention and generalized edema. On exam, she does not have edema to her lower extremities, however she feels that her thighs are more swollen than normal for her. She has no shortness of breath. Bowel sounds are active x4. Abdomen is obviously distended, however it is difficult to differentiate if this is fluid versus bowels. I have ordered a CBC, CMP, CRP, GGT, urinalysis, and a CT scan of her abdomen and pelvis. 12/20/19 21:11 Hematology was significant for anion gap 15.6, BUN 31, blood glucose 134, GGT 59, AST 51, ALT 69, alk phos 162, BNP 314. Urinalysis showed 2+ glucose, trace leukocyte esterase, and 5-10 squamous epithelial cells but was negative for infection. CT scan of the abdomen pelvis with contrast was negative for any acute findings. There is no visible fluid within the abdomen. Patient does have significant hepatomegaly, as well as increased stool present throughout her colon. CT images reviewed with the patient. Explained that her liver is occupying approximately half of her peritoneal cavity, therefore any increased stool in her abdomen will quickly cause abdominal distention. Discussed options to alleviate constipation. It was decided that that she will use a bottle of magnesium citrate which she has at home as well as a mineral oil enema that we will send home with her this evening. Discussed that she may continue her Lasix 20 mg daily to help with fluid retention. Recommend that she increase her intake of potassium or start a daily potassium supplement to prevent hypokalemia. Recommend follow-up with her primary care provider at his next available appointment. She states she does have an appointment with Dr. Ross on 03 January. While I was in visiting with her, patient stated that she feels like her blood sugar is dropping. Bedside glucose of the time was found to be 55. She was provided with an apple juice. She states this frequently happens if she does not eat supper. Discussed with her that the contrast that she drink this evening is also a laxative of sorts. Recommend that she go home and eat dinner. She has not had a bowel movement by morning she may take the magnesium citrate, wait 2 hours and then use the mineral oil enema. She is in agreement with this plan. Discharge instructions as documented. Departure - Departure Time of Disposition: 21:16 Disposition: Home, Self-Care 01 Condition: Good Clinical Impression: Hepatomegaly Constipation Qualifiers: Constipation type: slow transit constipation Qualified Code(s): K59.01 - Slow transit constipation - Discharge Information *PRESCRIPTION DRUG MONITORING PROGRAM REVIEWED*: No *COPY OF PRESCRIPTION DRUG MONITORING REPORT IN PATIENT [place]: No Instructions: Chronic Constipation, Hepatomegaly, [id number] Referrals: Alli Santoro MD [Primary Care Provider] - Forms: ED Department Discharge Additional Instructions: You were seen in the emergency department today for abdominal distention as well as generalized fluid retention. Work-up included blood work, urinalysis, and a CT scan of your abdomen pelvis. Your blood work showed some slightly elevated liver enzymes, but were overall normal. CT scan of your abdomen pelvis showed an enlarged liver as well as a collection of stool within your colon. As we discussed, with the size of your liver, even a small amount of increased stool through your colon will cause abdominal distention as there is nowhere else for the stool to go. The oral contrast that you drink for the CT scan today in itself is a laxative. Recommend that you go home and eat dinner. If you have not had a bowel movement by morning, you may drink the bottle of magnesium citrate that you have at home. You have also been sent home with a mineral oil enema. Wait 2 hours after the drinking the magnesium citrate to do the enema. You may continue your Lasix 20 mg daily for fluid retention as needed. Ensure that you are taking an adequate amount of potassium or start a daily potassium supplement as you will lose potassium with the fluid. Recommend follow-up with your primary care provider is next available visit. Return to the ER for any new or worsening symptoms of concern. Sepsis Event Note (ED) - Evaluation Sepsis Screening Result: No Definite Risk - Focused Exam Vital Signs: Vital Signs Temp Pulse Resp BP Pulse Ox 12/20/19 18:07 98.4 F 110 H 16 129/90 99 - My Orders Last 24 Hours: My Active Orders 12/20/19 18:56 Sodium Chloride 0.9% [Saline Flush] 10 ml FLUSH ASDIRECTED PRN Peripheral IV Insertion Adult [OM.PC] Stat 12/20/19 18:58 Abdomen Pelvis w Cont [CT] Stat 12/20/19 18:59 Peripheral IV Care [RC] . DIRECTED 12/20/19 21:19 Enema [RC] ASDIRECTED - Assessment/Plan Last 24 Hours: My Active Orders 12/20/19 18:56 Sodium Chloride 0.9% [Saline Flush] 10 ml FLUSH ASDIRECTED PRN Peripheral IV Insertion Adult [OM.PC] Stat 12/20/19 18:58 Abdomen Pelvis w Cont [CT] Stat 12/20/19 18:59 Peripheral IV Care [RC] . DIRECTED 12/20/19 21:19 Enema [RC] ASDIRECTED
--- NOTE | 2019-12-21 11:18 | CT ---
CT abdomen and pelvis Technique: Multiple axial sections were obtained from above the dome of the diaphragm inferiorly through the pubic symphysis. Intravenous and oral contrast was utilized. Delayed images were obtained through the bladder. Comparison: Prior CT abdomen and pelvis study of 04/05/19. Findings: Visualized lung bases show nothing acute. Liver contains no focal abnormality. Spleen shows no discrete abnormality. Adrenal glands show no nodule. Kidneys show symmetric contrast enhancement without hydronephrosis or mass. Pancreas shows no discrete abnormality. Aorta shows no aneurysm. No retroperitoneal adenopathy or mesenteric abnormalities are seen. No pelvic mass or adenopathy is seen. No free fluid or inflammatory change is seen. Appendix is felt to be visualized and normal in size. Mild increased stool is noted within the colon. Delayed images show contrast within the distal ureters and within the bladder. Bone window settings were reviewed. No acute osseous finding is appreciated. Very minimal fat-containing umbilical hernia is noted. Impression: 1. Mild increased stool throughout the colon. 2. Nothing acute is definitely appreciated on CT study of the abdomen and pelvis. Diagnostic code #2 This report was dictated in MDT I agree with preliminary report from [facility], finalized on 12/20/19, 9:50 PM Central Daylight Time
== END 2019-12-20 21:30 | disposition home or self-care (01) ==
LOC: JD.ED 18:00
DX: R16.0 Hepatomegaly, not elsewhere classified (principal); K59.01 Slow transit constipation; E10.43 Type 1 diabetes mellitus with diabetic autonomic (poly)neuropathy; K31.84 Gastroparesis; Z79.899 Other long term (current) drug therapy
CPT/HCPCS: 36415; 74177; 80053; 81001; 81025; 82962; 82977; 83880; 85025; 86140; 99285; Q9963; Q9967; 99283

== ENCOUNTER 2020-01-08 00:44 | Emergency (ER) | payer BC ==
--- NOTE | 2020-01-08 01:29 | EDM.PDOC ---
ED HPI GENERAL MEDICAL PROBLEM - General Chief Complaint: Cardiovascular Problem Stated Complaint: LOW BLOOD Preasure Time Seen by Provider: 01/08/20 01:28 Source of Information: Reports: Patient History Limitations: Reports: No Limitations - History of Present Illness INITIAL COMMENTS - FREE TEXT/NARRATIVE: 29-year-old female presents to the ED due to generally not feeling well. She is concerned about her elevated heart rate at greater than 110 for the last couple of days. It is currently 113-117 and sinus rhythm on the monitor. She makes her feel slightly short of breath. She denies fever chills or sore throat. She denies any cough or other symptoms to suggest COVID-19 illness. She reports she is an insulin-dependent diabetic for 17 years. She has had elevated blood sugars greater than 250 the last few days. She underwent a colonoscopy on January 04 and her insulin was withheld in the morning. She is on long-acting Tresiba 26 units of insulin in the morning. Uses Humalog insulin for meals intermittently. She reports she is supposed to be started on insulin pump next week. She was diagnosed with chronic constipation and suspect autonomic nervous system dysfunction of the colon related to her diabetes. She feels slightly dizzy and lightheaded usually upon getting up from the seated or lying down position but not when standing for prolonged periods Onset: Gradual Onset Date: 01/05/20 (Has not felt well since she had a colonoscopy done 3 days ago.) Duration: Day(s):, Getting Worse Location: Reports: Generalized (This does not feel well. Notes her heart rate is elevated and she feels somewhat short of breath and her blood pressure has been running in the 80s.) Quality: Reports: Other (Mild nausea and upper abdominal discomfort.) Severity: Mild Improves with: Reports: None Worsens with: Reports: Other Context: Reports: Other. Denies: Activity, Exercise (Feels dizzy and lightheaded at times usually when getting up from the seated or lying down position.), Lifting, Sick Contact, Trauma Associated Symptoms: Reports: Chest Pain, Loss of Appetite, Malaise, Nausea/Vomiting, Shortness of Breath, Other (Blood pressure lower than normal and soft and systolic in the 80s.). Denies: Confusion (She is a type I diabetic for 17 years.), cough w sputum (Chest discomfort but not pain.), Diaphoresis, Fever/Chills, Headaches, Rash, Seizure, Syncope Treatments PICTURE HANGER: Reports: Other (see below) Chest Pain Score (Numeric/FACES): 8 - Related Data Allergies Allergy/AdvReac Type Severity Reaction Status Date / Time No Known Allergies Allergy Verified 01/08/20 00:59 Home Meds: Home Meds Pantoprazole [ProTONIX] 40 mg PO DAILY 09/24/19 [History] Cyanocobalamin (Vitamin B12) [Vitamin B12] 1,000 mcg PO DAILY 12/04/19 [History] Furosemide [Lasix] 20 mg PO DAILY 12/04/19 [History] Insulin Aspart [NovoLOG] 0 unit SQ ASDIRECTED 12/04/19 [History] Insulin Degludec [Tresiba] 26 units SQ DAILY 12/20/19 [History] Imipramine HCl [Imipramine] 25 mg PO DAILY 01/08/20 [History] Past Medical History HEENT History: Reports: None Cardiovascular History: Reports: None Respiratory History: Reports: Other (See Below) Other Respiratory History: Nodules on Lungs Gastrointestinal History: Reports: Chronic Constipation, Fatty Liver, GERD, Other (See Below) Other Gastrointestinal History: Gastritis, fatty liver TREATMENT TECHNICIAN History: Reports: Other TREATMENT TECHNICIAN History: G1, P1. 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 Psychiatric History: Reports: Depression Endocrine/Metabolic History: Reports: Diabetes, Type I Hematologic History: Reports: None Immunologic History: Reports: None Oncologic (Cancer) History: Reports: None Dermatologic History: Reports: None - Infectious Disease History Infectious Disease History: Reports: None - Past Surgical History GI Surgical History: Reports: Other (See Below) Other GI Surgeries/Procedures: Liver Biopsy Female Surgical History: Reports: Section Social & Family History - Family History Family Medical History: Noncontributory - Caffeine Use Caffeine Use: Reports: None - Living Situation & Occupation Living situation: Reports: Occupation: Unemployed ED ROS GENERAL - Review of Systems Review Of Systems: See Below Constitutional: Reports: Malaise, Weakness, Fatigue, Decreased Appetite. Denies: Fever, Chills HEENT: Reports: No Symptoms Respiratory: Reports: Shortness of Breath. Denies: Wheezing, Pleuritic Chest Pain, Cough, Sputum, Hemoptysis Cardiovascular: Reports: Chest Pain, Blood Pressure Problem (Pressure discomfort intermittently), Dyspnea on Exertion, Lightheadedness (Sleeve when she achieves standing position from lying down or). Denies: Claudication ( orts her blood pressures been running lower than normal with a sinus tachycardia greater than 110 for the last 3 days.), Edema, Orthopnea ( sitting.), Palpitations Endocrine: Reports: Fatigue GI/Abdominal: Reports: Abdominal Pain (History of chronic constipation. Of note she is on imipramine 25 mg daily which is highly constipating.), Constipation : Reports: Frequency Musculoskeletal: Reports: No Symptoms Skin: Reports: No Symptoms Neurological: Reports: Numbness, Tingling Psychiatric: Reports: No Symptoms Hematologic/Lymphatic: Reports: No Symptoms Immunologic: Reports: No Symptoms ED EXAM, GENERAL - Physical Exam Exam: See Below Exam Limited By: No Limitations General Appearance: Alert, WD/WN, No Apparent Distress, Other (Temperature is 36.4 heart rate 1 13-1 17 sinus tachycardia on the monitor. Respiratory rate is 18 with a O2 sats of 98% on room air BP 109/82. Breath smells strongly of ketones.) Eye Exam: Bilateral Eye: Normal Inspection, PERRL Throat/Mouth: Other Head: Atraumatic (Tongue is mildly dry and coated.), Normocephalic Neck: Normal Inspection, Supple, Non-Tender, Full Range of Motion. No: Carotid Bruit, Lymphadenopathy (L), Lymphadenopathy (R) Respiratory/Chest: No Respiratory Distress, Lungs Clear, Normal Breath Sounds, No Accessory Muscle Use Cardiovascular: Normal Peripheral Pulses, No Edema, No Gallop, No Murmur, No Rub, Tachycardia Peripheral Pulses: 3+: Carotid (L), Carotid (R) GI/Abdominal: Distended, Abnormal Bowel Sounds, Other (Bowel sounds are mildly hyperactive. Both left hemicolon compatible with constipation.). No: Guarding, Rigid (Kashif distended and slightly tympanitic to percussion. No peritoneal signs), Rebound, Tender Back Exam: Normal Inspection, Full Range of Motion. No: CVA Tenderness (L), CVA Tenderness (R) Extremities: Normal Inspection, Normal Range of Motion, Non-Tender, No Pedal Edema Neurological: Alert, Oriented, CN II-XII Intact, Normal Cognition Psychiatric: Normal Affect, Normal Mood Skin Exam: Warm, Dry, Intact, Normal Color, No Rash EKG INTERPRETATION EKG Date: 01/08/20 Time: 01:35 Rhythm: Other (Sinus tachycardia) Rate (Beats/Min): 112 [place]: Normal P-Wave: Present QRS: Normal ST-T: Normal QT: Normal EKG Interpretation Comments: Sinus tachycardia otherwise normal ECG Course - Vital Signs Last Recorded V/S: Last Vital Signs Temp 36.4 C 01/08/20 00:53 Pulse 113 H 01/08/20 00:53 Resp 18 01/08/20 00:53 BP 109/82 01/08/20 00:53 Pulse Ox 98 01/08/20 00:53 - Orders/Labs/Meds Orders: Active Orders 24 hr Category Date Time Status Blood Glucose Check, Bedside [] ONETIME Care 01/08/20 01:48 Active Blood Glucose Check, Bedside [] ONETIME Care 01/08/20 04:50 Active Blood Glucose Check, Bedside [] ONETIME Care 01/08/20 06:00 Active EKG Documentation Completion [] STAT Care 01/08/20 01:29 Active Insulin Regular, Human [HumuLIN R] 100 unit Med 01/08/20 02:15 Active Sodium Chloride 0.9% [Normal Saline] 99 ml IV TITRATE Lactated Ringers [Ringers, Lactated] 1,000 ml Med 01/08/20 04:00 Active IV ASDIRECTED Sodium Chloride 0.9% [Normal Saline] 1,000 ml Med 01/08/20 02:00 Active IV ASDIRECTED Medication Orders Sodium Chloride (Normal Saline) 1,000 mls @ 999 mls/hr IV ASDIRECTED STEPHANIE Last Admin: 01/08/20 02:08 Dose: 999 mls/hr Documented by: GILDARDO Insulin Human Regular 100 unit (/ Sodium Chloride) 100 mls @ 2 mls/hr IV TITRATE STEPHANIE; Protocol Last Admin: 01/08/20 04:24 Dose: 2 unit/hr, 2 mls/hr Documented by: MICHELLE Cosigned by: GILDARDO Lactated Ringer's (Ringers, Lactated) 1,000 mls @ 999 mls/hr IV ASDIRECTED STEPHANIE Last Admin: 01/08/20 04:23 Dose: 999 mls/hr Documented by: MICHELLE Labs: Laboratory Tests 09/01/08/20 01/08/20 Range/Units 02:07 02:07 02:07 WBC 3.40 L (3.98-10.04) K/mm3 RBC 3.98 (3.98-5.22) M/mm3 Hgb 12.5 (11.2-15.7) gm/dl Hct 36.8 (34.1-44.9) % MCV 92.5 D (79.4-94.8) fl MCH 31.4 (25.6-32.2) pg MCHC 34.0 (32.2-35.5) g/dl RDW Std Deviation 41.9 (36.4-46.3) fL Plt Count 324 (182-369) K/mm3 MPV 11.1 (9.4-12.3) fl Neutrophils % (Manual) 54 (40-60) % Band Neutrophils % 0 (0-10) % Lymphocytes % (Manual) 36 (20-40) % Atypical Lymphs % 0 % Monocytes % (Manual) 8 (2-10) % Eosinophils % (Manual) 2 (0.7-5.8) % Basophils % (Manual) 0 L (0.1-1.2) Platelet Estimate Adequate Anisocytosis 2+ moderate Microcytosis 2+ moderate RBC Morph Comment Abnormal PT 9.3 L (9.7-11.7) SECONDS INR < 0.93 APTT 22 (22-31) SECONDS Sodium 133 L (136-145) mEq/L Potassium 4.8 (3.5-5.1) mEq/L Chloride 98 (98-107) mEq/L Carbon Dioxide 24 (21-32) mEq/L Anion Gap 15.8 H (5-15) BUN 27 H (7-18) mg/dL Creatinine 1.3 H (0.55-1.02) mg/dL Est Cr Clr Drug Dosing 46.69 mL/min Estimated GFR (MDRD) 49 (>60) mL/min BUN/Creatinine Ratio 20.8 H (14-18) Glucose 521 H* (74-106) mg/dL POC Glucose (70-105) mg/dL Hemoglobin A1c (4.50-6.20) % Serum Osmolality 324 H (280-300) mosm/kg Calcium 8.8 (8.5-10.1) mg/dL Magnesium 2.2 (1.8-2.4) mg/dl Total Bilirubin 0.3 (0.2-1.0) mg/dL AST 16 (15-37) U/L ALT 40 (14-59) U/L Alkaline Phosphatase 189 H (46-116) U/L Troponin I < 0.017 (0.00-0.056) ng/mL C-Reactive Protein 0.7 (<1.0) mg/dL Total Protein 6.3 L (6.4-8.2) g/dl Albumin 2.9 L (3.4-5.0) g/dl Globulin 3.4 gm/dL Albumin/Globulin Ratio 0.9 L (1-2) Urine Color (Yellow) Urine Appearance (Clear) Urine pH (5.0-8.0) Ur Specific [place] (1.005-1.030) Urine Protein (Negative) Urine Glucose (UA) (Negative) Urine Ketones (Negative) Urine Occult Blood (Negative) Urine Nitrite (Negative) Urine Bilirubin (Negative) Urine Urobilinogen (0.2-1.0) Ur Leukocyte Esterase (Negative) Urine RBC (0-5) /hpf Urine WBC (0-5) /hpf Ur Epithelial Cells (0-5) /hpf Urine Bacteria (FEW) /hpf Urine Mucus (FEW) /hpf Ketones (0.0-0.3) mM 01/08/20 01/08/20 01/08/20 Range/Units 02:07 02:07 03:34 WBC (3.98-10.04) K/mm3 RBC (3.98-5.22) M/mm3 Hgb (11.2-15.7) gm/dl Hct (34.1-44.9) % MCV (79.4-94.8) fl MCH (25.6-32.2) pg MCHC (32.2-35.5) g/dl RDW Std Deviation (36.4-46.3) fL Plt Count (182-369) K/mm3 MPV (9.4-12.3) fl Neutrophils % (Manual) (40-60) % Band Neutrophils % (0-10) % Lymphocytes % (Manual) (20-40) % Atypical Lymphs % % Monocytes % (Manual) (2-10) % Eosinophils % (Manual) (0.7-5.8) % Basophils % (Manual) (0.1-1.2) Platelet Estimate Anisocytosis Microcytosis RBC Morph Comment PT (9.7-11.7) SECONDS INR APTT (22-31) SECONDS Sodium (136-145) mEq/L Potassium (3.5-5.1) mEq/L Chloride (98-107) mEq/L Carbon Dioxide (21-32) mEq/L Anion Gap (5-15) BUN (7-18) mg/dL Creatinine (0.55-1.02) mg/dL Est Cr Clr Drug Dosing mL/min Estimated GFR (MDRD) (>60) mL/min BUN/Creatinine Ratio (14-18) Glucose 470 H (74-106) mg/dL POC Glucose (70-105) mg/dL Hemoglobin A1c 9.70 H (4.50-6.20) % Serum Osmolality (280-300) mosm/kg Calcium (8.5-10.1) mg/dL Magnesium (1.8-2.4) mg/dl Total Bilirubin (0.2-1.0) mg/dL AST (15-37) U/L ALT (14-59) U/L Alkaline Phosphatase (46-116) U/L Troponin I (0.00-0.056) ng/mL C-Reactive Protein (<1.0) mg/dL Total Protein (6.4-8.2) g/dl Albumin (3.4-5.0) g/dl Globulin gm/dL Albumin/Globulin Ratio (1-2) Urine Color (Yellow) Urine Appearance (Clear) Urine pH (5.0-8.0) Ur Specific [place] (1.005-1.030) Urine Protein (Negative) Urine Glucose (UA) (Negative) Urine Ketones (Negative) Urine Occult Blood (Negative) Urine Nitrite (Negative) Urine Bilirubin (Negative) Urine Urobilinogen (0.2-1.0) Ur Leukocyte Esterase (Negative) Urine RBC (0-5) /hpf Urine WBC (0-5) /hpf Ur Epithelial Cells (0-5) /hpf Urine Bacteria (FEW) /hpf Urine Mucus (FEW) /hpf Ketones 2.59 (0.0-0.3) mM 01/08/20 01/08/20 01/08/20 Range/Units 04:29 04:56 05:39 WBC (3.98-10.04) K/mm3 RBC (3.98-5.22) M/mm3 Hgb (11.2-15.7) gm/dl Hct (34.1-44.9) % MCV (79.4-94.8) fl MCH (25.6-32.2) pg MCHC (32.2-35.5) g/dl RDW Std Deviation (36.4-46.3) fL Plt Count (182-369) K/mm3 MPV (9.4-12.3) fl Neutrophils % (Manual) (40-60) % Band Neutrophils % (0-10) % Lymphocytes % (Manual) (20-40) % Atypical Lymphs % % Monocytes % (Manual) (2-10) % Eosinophils % (Manual) (0.7-5.8) % Basophils % (Manual) (0.1-1.2) Platelet Estimate Anisocytosis Microcytosis RBC Morph Comment PT (9.7-11.7) SECONDS INR APTT (22-31) SECONDS Sodium (136-145) mEq/L Potassium (3.5-5.1) mEq/L Chloride (98-107) mEq/L Carbon Dioxide (21-32) mEq/L Anion Gap (5-15) BUN (7-18) mg/dL Creatinine (0.55-1.02) mg/dL Est Cr Clr Drug Dosing mL/min Estimated GFR (MDRD) (>60) mL/min BUN/Creatinine Ratio (14-18) Glucose (74-106) mg/dL POC Glucose 389 H 300 H (70-105) mg/dL Hemoglobin A1c (4.50-6.20) % Serum Osmolality (280-300) mosm/kg Calcium (8.5-10.1) mg/dL Magnesium (1.8-2.4) mg/dl Total Bilirubin (0.2-1.0) mg/dL AST (15-37) U/L ALT (14-59) U/L Alkaline Phosphatase (46-116) U/L Troponin I (0.00-0.056) ng/mL C-Reactive Protein (<1.0) mg/dL Total Protein (6.4-8.2) g/dl Albumin (3.4-5.0) g/dl Globulin gm/dL Albumin/Globulin Ratio (1-2) Urine Color Yellow (Yellow) Urine Appearance Clear (Clear) Urine pH 6.0 (5.0-8.0) Ur Specific [place] 1.020 (1.005-1.030) Urine Protein Negative (Negative) Urine Glucose (UA) 2+ H (Negative) Urine Ketones 2+ H (Negative) Urine Occult Blood 1+ H (Negative) Urine Nitrite Negative (Negative) Urine Bilirubin Negative (Negative) Urine Urobilinogen 0.2 (0.2-1.0) Ur Leukocyte Esterase Negative (Negative) Urine RBC 0-5 (0-5) /hpf Urine WBC 0-5 (0-5) /hpf Ur Epithelial Cells 0-5 (0-5) /hpf Urine Bacteria Few (FEW) /hpf Urine Mucus Few (FEW) /hpf Ketones (0.0-0.3) mM 09/ Range/Units 07:00 WBC (3.98-10.04) K/mm3 RBC (3.98-5.22) M/mm3 Hgb (11.2-15.7) gm/dl Hct (34.1-44.9) % MCV (79.4-94.8) fl MCH (25.6-32.2) pg MCHC (32.2-35.5) g/dl RDW Std Deviation (36.4-46.3) fL Plt Count (182-369) K/mm3 MPV (9.4-12.3) fl Neutrophils % (Manual) (40-60) % Band Neutrophils % (0-10) % Lymphocytes % (Manual) (20-40) % Atypical Lymphs % % Monocytes % (Manual) (2-10) % Eosinophils % (Manual) (0.7-5.8) % Basophils % (Manual) (0.1-1.2) Platelet Estimate Anisocytosis Microcytosis RBC Morph Comment PT (9.7-11.7) SECONDS INR APTT (22-31) SECONDS Sodium (136-145) mEq/L Potassium (3.5-5.1) mEq/L Chloride (98-107) mEq/L Carbon Dioxide (21-32) mEq/L Anion Gap (5-15) BUN (7-18) mg/dL Creatinine (0.55-1.02) mg/dL Est Cr Clr Drug Dosing mL/min Estimated GFR (MDRD) (>60) mL/min BUN/Creatinine Ratio (14-18) Glucose (74-106) mg/dL POC Glucose 220 H (70-105) mg/dL Hemoglobin A1c (4.50-6.20) % Serum Osmolality (280-300) mosm/kg Calcium (8.5-10.1) mg/dL Magnesium (1.8-2.4) mg/dl Total Bilirubin (0.2-1.0) mg/dL AST (15-37) U/L ALT (14-59) U/L Alkaline Phosphatase (46-116) U/L Troponin I (0.00-0.056) ng/mL C-Reactive Protein (<1.0) mg/dL Total Protein (6.4-8.2) g/dl Albumin (3.4-5.0) g/dl Globulin gm/dL Albumin/Globulin Ratio (1-2) Urine Color (Yellow) Urine Appearance (Clear) Urine pH (5.0-8.0) Ur Specific [place] (1.005-1.030) Urine Protein (Negative) Urine Glucose (UA) (Negative) Urine Ketones (Negative) Urine Occult Blood (Negative) Urine Nitrite (Negative) Urine Bilirubin (Negative) Urine Urobilinogen (0.2-1.0) Ur Leukocyte Esterase (Negative) Urine RBC (0-5) /hpf Urine WBC (0-5) /hpf Ur Epithelial Cells (0-5) /hpf Urine Bacteria (FEW) /hpf Urine Mucus (FEW) /hpf Ketones (0.0-0.3) mM Meds: Medications Generic Name Dose Route Start Last Admin Trade Name Freq PRN Reason Stop Dose Admin Sodium Chloride 1,000 mls @ 999 mls/hr 01/08/20 02:00 01/08/20 02:08 Normal Saline IV 999 mls/hr ASDIRECTED STEPHANIE Administration Insulin Human Regular 100 unit 100 mls @ 2 mls/hr 01/08/20 02:15 01/08/20 04:24 / Sodium Chloride IV 2 unit/hr TITRATE STEPHANIE 2 mls/hr Administration Protocol 2 UNIT/HR Lactated Ringer's 1,000 mls @ 999 mls/hr 01/08/20 04:00 01/08/20 04:23 Ringers, Lactated IV 999 mls/hr ASDIRECTED STEPHANIE Administration - Radiology Interpretation Free Text/Narrative:: 29-year-old female presents to the ED complaining that she has had a persistent sinus tachycardia at greater than 110/min for the last 2 to 3 days. She had a colonoscopy 3 days ago and was told to withhold her Tresiba insulin in the morning. Since that time she states her sugars have been running higher than normal. She complains of some chest pressure discomfort and dyspnea on exertion. Denies fever chills cough sore throat or loss of sense of taste or smell. Denies any genitourinary complaints. Exam reveals sinus tachycardia at 113 to 117/min. I can smell ketones strongly on her breath. She states that her blood sugar was 120 at 2300 hrs. last night. I suspect this is incorrect. Clinically she appears to be in early DKA. Plan routine labs to be performed in care including serum ketones and serum osmolality. Urinalysis and chest x-ray and ECG. COVID-19 screen will be obtained. IV will be normal saline at open. I will await a bedside blood sugar before deciding on need for insulin infusion. - Re-Assessments/Exams Free Text/Narrative Re-Assessment/Exam: 01/08/20 02:12 bedside blood sugar reported to be greater than 400. I am going to go ahead and start her on insulin infusion at 2 units an hour and adjust after I see her laboratory blood sugar. 01/08/20 02:54 White count is low at 3.40. Differential pending. Hemoglobin 12.5 with hematocrit of 36.8. Platelet count normal at 324,000. PT is 9.3 with an INR of less than 0.93. PTT is 22. Sodium slightly low at 133 with a potassium of 4.8. Chloride is 98 with a bicarb of 24. Anion gap is slightly elevated at 15.8. BUN is 27 with a creatinine of 1.3. Estimated GFR is 49. BUN/creatinine ratio is 20.8 with a glucose of 521. Serum osmolality is pending. Calcium is 8.8 with a magnesium of 2.2. Bilirubin 0.3 liver function otherwise normal other than elevated alk phos stays at 189. Troponin I was less than 0.017. C-reactive protein is 0.7. Total protein is 6.3 with an albumin fraction of 2.9. COVID-19 test is pending. Serum ketones are pending. Chest x-ray done portably is within normal limits. Patient did not take a very good breath. Diffuse vascular congestion pattern secondary to portable technique. Size is normal. No pulmonary infiltrates evident. 01/08/20 03:22 Hemoglobin A1c is 9.70 indicating diabetes is in very poor control. Serum osmolality is elevated at 324. Ketones at 2.59.Differential on the white count is 54% neutrophils no bands cells reported. The slide shows 2+ anisocytosis and 2+ microcytosis. 01/08/20 04:53 Repeat blood sugar was 470. This was 1 hour after insulin infusion was started. We will continue insulin drip at 2 units an hour. Urinalysis showed 2+ glucosuria 2+ ketones and 1+ occult blood. Urobilinogen was 0.2. Leukocyte Estrace was negative. The micro is pending. She will have a bedside blood sugar done at this time 01/08/20 05:01 Blood sugar is down to 389. Continue insulin infusion at 2 units an hour. Keep blood sugar in 1 hour's time. Patient declined COVID-19 test at this time. I agreed with this at is at this time I believe she will be treated as an outpatient and not have to be admitted to the hospital. 01/08/20 06:00: Sugar at 0545 hrs. was down to 300. Blood sugar to be checked at 0645 hrs. 01/08/20 07:05: Sugars down to 220. Patient feels much improved. Heart rate is down to 96/min. She is anxious to leave the department as her has to go to work and she has the vehicle. She will be discharged home to take her Tresiba insulin as soon as she gets home and then checking blood sugars every 3- 4 hours today and using Humalog are insulin which she has at home to treat elevated blood sugars appropriately. Departure - Departure Time of Disposition: 07:00 Disposition: Home, Self-Care 01 Reason for Transfer *Q: Other Condition: Fair Clinical Impression: Hyperglycemia due to type 1 diabetes mellitus, Dehydration Diabetic ketoacidosis Qualifiers: Diabetes mellitus type: type 1 Diabetes mellitus complication detail: without coma Qualified Code(s): E10.10 - Type 1 diabetes mellitus with ketoacidosis without coma Instructions: Dehydration, Adult, [id number], Hyperglycemia, [id number], Preventing Diabetic Ketoacidosis Referrals: Alli Santoro MD [Primary Care Provider] - Forms: ED Department Discharge Additional Instructions: Evaluation in the emergency room overnight in regards to elevated blood sugar and diabetic ketoacidosis. He presented with weakness nausea and chest discomfort and rapid heart rate and lower blood pressure than normal. Sugar at the time of discharge is down to 220. Received 2 L of IV fluids to correct diabetic ketoacidosis overnight and insulin at 2 units an hour to blood sugar down from 521-2 20. Take your Tresiba this morning as per normal. Need extra doses of Humulin regular insulin today to maintain sugars. Suggest checking sugars every 4 hours. Sepsis Event Note (ED) - Evaluation Sepsis Screening Result: No Definite Risk - Focused Exam Vital Signs: Vital Signs Temp Pulse Resp BP Pulse Ox 01/08/20 00:53 36.4 C 113 H 18 109/82 98 - My Orders Last 24 Hours: My Active Orders 01/08/20 01:29 EKG Documentation Completion [RC] STAT 01/08/20 01:48 Blood Glucose Check, Bedside [RC] ONETIME 01/08/20 02:00 Sodium Chloride 0.9% [Normal Saline] 1,000 ml IV ASDIRECTED 01/08/20 02:15 Insulin Regular, Human [HumuLIN R] 100 unit Sodium Chloride 0.9% [Normal Saline] 99 ml IV TITRATE 01/08/20 04:00 Lactated Ringers [Ringers, Lactated] 1,000 ml IV ASDIRECTED 01/08/20 04:50 Blood Glucose Check, Bedside [RC] ONETIME 01/08/20 06:00 Blood Glucose Check, Bedside [RC] ONETIME - Assessment/Plan Last 24 Hours: My Active Orders 01/08/20 01:29 EKG Documentation Completion [RC] STAT 01/08/20 01:48 Blood Glucose Check, Bedside [RC] ONETIME 01/08/20 02:00 Sodium Chloride 0.9% [Normal Saline] 1,000 ml IV ASDIRECTED 01/08/20 02:15 Insulin Regular, Human [HumuLIN R] 100 unit Sodium Chloride 0.9% [Normal Thai ine] 99 ml IV TITRATE 01/08/20 04:00 Lactated Ringers [Ringers, Lactated] 1,000 ml IV ASDIRECTED 01/08/20 04:50 Blood Glucose Check, Bedside [RC] ONETIME 01/08/20 06:00 Blood Glucose Check, Bedside [RC] ONETIME
[2020-01-08] MEDS ORDERED: Sodium Chloride 0.9% 1,000 ML IV SCH (02:00)
[2020-01-08 03:12] LABS: HEMOGLOBIN A1C 9.7 % (4.50-6.20)
[2020-01-08] MEDS ORDERED: Lactated Ringers 1,000 ML IV SCH (04:00)
--- NOTE | 2020-01-08 07:16 | CR ---
Chest: Portable view of the chest was obtained. Comparison: No prior chest imaging is available. Heart size and mediastinum are normal. Lungs are clear with no acute parenchymal change. Bony structures are grossly intact. Impression: 1. Nothing acute is appreciated on portable chest x-ray. Diagnostic code #1 Study was dictated in MDT
== END 2020-01-08 07:30 | disposition home or self-care (01) ==
LOC: JD.ED 00:44
DX: E10.10 Type 1 diabetes mellitus with ketoacidosis without coma (principal); E86.0 Dehydration; R00.0 Tachycardia, unspecified; K21.9 Gastro-esophageal reflux disease without esophagitis; Z79.899 Other long term (current) drug therapy; Z98.890 Other specified postprocedural states
CPT/HCPCS: 36415; 71045; 80053; 81001; 82009; 82947; 82962; 83036; 83735; 83930; 84484; 85007; 85027; 85610; 85730; 86140; 93005; 96360; 96361; 99285; J1815; J7030; J7050; J7120; 93010; 99284

== ENCOUNTER 2020-09-20 15:46 | Emergency (ER) | payer BC ==
[2020-09-20] MEDS ORDERED: Sodium Chloride 0.9% 10 ML Syringe FLUSH PRN (16:27)
--- NOTE | 2020-09-20 16:49 | EDM.PDOC ---
ED HPI GENERAL MEDICAL PROBLEM - General Chief Complaint: DOCTOR OF PODIATRIC MEDICINE Problem Stated Complaint: EARLY PG/CRAMPING Time Seen by Provider: 09/20/20 16:08 Source of Information: Reports: Patient, RN Notes Reviewed History Limitations: Reports: No Limitations - History of Present Illness INITIAL COMMENTS - FREE TEXT/NARRATIVE: Patient is a 30-year-old female who presents to the ER for her cramping in . She is a G2, P1, and has been having abdomen cramping since about the beginning of August. She has had some labs drawn by Dr. Rinaldi for progesterone and hCG levels, this does confirm but was found to have low progesterone levels so she was started on progesterone suppositories. Notes that she is still having abdominal cramping but no vaginal bleeding. She seems to think the pain is worsening. She called Dr. Rinaldi's office today however he was booked and could not see her and is unfortunately out of the office tomorrow. She does have an appointment for but was worried due to the worsening pain that she should be seen sooner rather than later. She does also carry a history of diabetes for which she takes insulin. She is not having any dysuria, frequency or urgency, no fevers or chills, cough/shortness of breath, nausea/vomiting/diarrhea. She has had a previous but denies any other abdominal surgeries. Check of her labs on noted a progesterone level of 17.4 and hCG quantitative level at 1152, repeat labs on September 13 reveal a progesterone level of 10.82, and hCG level 2184. Patient states that her last menstrual period was in May sometime, but again has been having this lower abdomen cramping since the beginning of August. - Related Data Allergies Allergy/AdvReac Type Severity Reaction Status Date / Time No Known Allergies Allergy Verified 01/08/20 00:59 Home Meds: Home Meds Pantoprazole [ProTONIX] 40 mg PO DAILY 09/24/19 [History] Cyanocobalamin (Vitamin B12) [Vitamin B12] 1,000 mcg PO DAILY 12/04/19 [History] Furosemide [Lasix] 20 mg PO DAILY 12/04/19 [History] Insulin Aspart [NovoLOG] 0 unit SQ ASDIRECTED 12/04/19 [History] Insulin Degludec [Tresiba] 26 units SQ DAILY 12/20/19 [History] Imipramine HCl [Imipramine] 25 mg PO DAILY 01/08/20 [History] Past Medical History Respiratory History: Reports: Other (See Below) Other Respiratory History: Nodules on Lungs Gastrointestinal History: Reports: Chronic Constipation, Fatty Liver, GERD, Other (See Below) Other Gastrointestinal History: Gastritis, fatty liver DOCTOR OF PODIATRIC MEDICINE History: Reports: : 2 Para: 1 LMP (Approximate): Neurological History: Reports: Headaches, Chronic, Other (See Below) 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 Psychiatric History: Reports: Depression Endocrine/Metabolic History: Reports: Diabetes, Type I - Past Surgical History GI Surgical History: Reports: Other (See Below) Other GI Surgeries/Procedures: Liver Biopsy Female Surgical History: Reports: Section Social & Family History - Family History Family Medical History: No Pertinent Family History - Tobacco Use Tobacco Use Status *Q: Never Tobacco User - Caffeine Use Caffeine Use: Reports: None - Recreational Drug Use Recreational Drug Use: No - Living Situation & Occupation Living situation: Reports: Occupation: Unemployed ED ROS GENERAL - Review of Systems Review Of Systems: Comprehensive ROS is negative, except as noted in HPI. ED EXAM - Physical Exam Exam: See Below Exam Limited By: No Limitations General Appearance: Alert, WD/WN, No Apparent Distress, Anxious Respiratory/Chest: No Respiratory Distress, Lungs Clear, Normal Breath Sounds, No Accessory Muscle Use, Chest Non-Tender Cardiovascular: Normal Peripheral Pulses, Regular Rate, Rhythm, No Edema GI/Abdominal Exam: Normal Bowel Sounds, Soft, No Distention, Tender (low pelvic pain) Heart Tones: Not [place] Movement: Not Appreciated Extremities: Normal Inspection, Normal Capillary Refill Neurological: Alert, Oriented, Normal Cognition, No Motor/Sensory Deficits Psychiatric: Normal Affect, Normal Mood Skin Exam: Warm, Dry, Intact, Normal Color, No Rash Course - Vital Signs Last Recorded V/S: Last Vital Signs Temp 97.3 F 09/20/20 16:07 Pulse 81 09/20/20 16:07 Resp 16 09/20/20 16:07 BP 128/81 09/20/20 16:07 Pulse Ox 99 09/20/20 16:07 - Orders/Labs/Meds Orders: Active Orders 24 hr Category Date Time Status Peripheral IV Care [RC] . DIRECTED Care 09/20/20 16:28 Active OB Transvaginal [US] Stat Exams 09/20/20 16:27 Ordered ABO/RH TYPE [BBK] Stat Lab 09/20/20 16:27 Ordered HCG QUANTITATIVE [CHEM] Stat Lab 09/20/20 16:45 Received Sodium Chloride 0.9% [Saline Flush] Med 09/20/20 16:27 Active 10 ml FLUSH ASDIRECTED PRN Peripheral IV Insertion Adult [OM.PC] Stat Oth 09/20/20 16:27 Ordered Medication Orders Sodium Chloride (Sodium Chloride 0.9% 10 Ml Syringe) 10 ml FLUSH ASDIRECTED PRN PRN Reason: Keep Vein Open Last Admin: 09/20/20 16:45 Dose: 10 ml Documented by: BERONICA Labs: Laboratory Tests 09/20/20 09/20/20 09/20/20 Range/Units 16:15 16:45 16:45 WBC 4.62 (3.98-10.04) K/mm3 RBC 4.08 (3.98-5.22) M/mm3 Hgb 12.8 (11.2-15.7) gm/dl Hct 37.2 (34.1-44.9) % MCV 91.2 (79.4-94.8) fl MCH 31.4 (25.6-32.2) pg MCHC 34.4 (32.2-35.5) g/dl RDW Std Deviation 37.4 (36.4-46.3) fL Plt Count 265 (182-369) K/mm3 MPV 10.9 (9.4-12.3) fl Neut % (Auto) 48.8 (34.0-71.1) % Lymph % (Auto) 40.7 (19.3-51.7) % [place] % (Auto) 8.2 (4.7-12.5) % Eos % (Auto) 1.7 (0.7-5.8) Baso % (Auto) 0.6 (0.1-1.2) % Neut # (Auto) 2.25 (1.56-6.13) K/mm3 Lymph # (Auto) 1.88 (1.18-3.74) K/mm3 [place] # (Auto) 0.38 H (0.24-0.36) K/mm3 Eos # (Auto) 0.08 (0.04-0.36) K/mm3 Baso # (Auto) 0.03 (0.01-0.08) K/mm3 Progesterone 11.02 ng/mL Urine Color Yellow (Yellow) Urine Appearance Clear (Clear) Urine pH 7.0 (5.0-8.0) Ur Specific [place] 1.025 (1.005-1.030) Urine Protein Trace H (Negative) Urine Glucose (UA) Negative (Negative) Urine Ketones Negative (Negative) Urine Occult Blood Negative (Negative) Urine Nitrite Negative (Negative) Urine Bilirubin Negative (Negative) Urine Urobilinogen 0.2 (0.2-1.0) Ur Leukocyte Esterase Negative (Negative) Urine RBC 0-5 (0-5) /hpf Urine WBC 0-5 (0-5) /hpf Ur Squamous Epith Cells 5-10 H (0-5) /hpf Urine Bacteria Moderate H (FEW) /hpf Urine Mucus Few (FEW) /hpf Meds: Medications Generic Name Dose Route Start Last Admin Trade Name Freq PRN Reason Stop Dose Admin Sodium Chloride 10 ml 09/20/20 16:27 09/20/20 16:45 Sodium Chloride 0.9% 10 Ml Syringe FLUSH 10 ml ASDIRECTED PRN Administration Keep Vein Open - Re-Assessments/Exams Free Text/Narrative Re-Assessment/Exam: 09/20/20 16:53 Patient presents to the ER for her abdomen pain and , we will get IV established get basic labs, perform ultrasound for evaluation. 09/20/20 18:43 The patient's labs have resulted for the most part, hCG is still pending due to them having issues with the analyzer. Her progesterone level is roughly 11, which does correlate with her gestational age, and is higher than it was a week ago. This is reassuring, she is taking progesterone suppositories for this. Ultrasound demonstrates a fetus of 5 weeks 5 days with a heartbeat of 113 bpm. The fetus is intrauterine as well. We will go ahead and discharge the patient home and call her with hCG results if she should desire to have a call however she is supposed to follow-up with Dr. Rinaldi in 2 days. She will be given strict return precautions. Departure - Departure Time of Disposition: 18:45 Disposition: Home, Self-Care 01 Condition: Good Clinical Impression: Abdominal cramping affecting - Discharge Information *PRESCRIPTION DRUG MONITORING PROGRAM REVIEWED*: No *COPY OF PRESCRIPTION DRUG MONITORING REPORT IN PATIENT [place]: No Instructions: Abdominal Pain During , [id number] Referrals: Bella Stephens MD [Primary Care Provider] - Forms: ED Department Discharge Additional Instructions: You were evaluated in the ER today regarding your abdominal pain/vaginal bleeding in . You did have some labs drawn, however at today's visit, you are having issues with her hCG analyzer, so results are not readily available however your progesterone was resulted and is roughly 11. Which is reassuring, because it is increasing from your last level taken a few days ago. You will be called tonight with your hCG level if it does result otherwise you can follow-up with Dr. Rinaldi on as previously scheduled. Your ultrasound demonstrated an intrauterine of 5 weeks 5 days with a heart rate of 113 bpm. Recommend that you do not lift anything heavier than a gallon of milk (5 lbs), do not engage in sexual activities, try to get as much pelvic rest as possible for the next few days. Please try not to exert yourself, rest and relax, and take it easy. If you start having vaginal bleeding through more than 1-2 maxi pads every couple hours, this would be cause for concern to return to the ER for immediate management. Please follow up with your DOCTOR OF PODIATRIC MEDICINE at your next scheduled appointment. Please return to the ED at any time if your symptoms change or worsen. Sepsis Event Note (ED) - Evaluation Sepsis Screening Result: No Definite Risk - Focused Exam Vital Signs: Vital Signs Temp Pulse Resp BP Pulse Ox 09/20/20 16:07 97.3 F 81 16 128/81 99 - My Orders Last 24 Hours: My Active Orders 09/20/20 16:27 OB Transvaginal [US] Stat ABO/RH TYPE [BBK] Stat Sodium Chloride 0.9% [Saline Flush] 10 ml FLUSH ASDIRECTED PRN Peripheral IV Insertion Adult [OM.PC] Stat 09/20/20 16:28 Peripheral IV Care [RC] . DIRECTED 09/20/20 16:45 HCG QUANTITATIVE [CHEM] Stat - Assessment/Plan Last 24 Hours: My Active Orders 09/20/20 16:27 OB Transvaginal [US] Stat ABO/RH TYPE [BBK] Stat Sodium Chloride 0.9% [Saline Flush] 10 ml FLUSH ASDIRECTED PRN Peripheral IV Insertion Adult [OM.PC] Stat 09/20/20 16:28 Peripheral IV Care [RC] . DIRECTED 09/20/20 16:45 HCG QUANTITATIVE [CHEM] Stat
--- NOTE | 2020-09-20 18:52 | US ---
First trimester obstetrical ultrasound: Multiple real-time images were obtained transvaginally. Comparison: No previous study for current . Dates: Current ultrasound: [facility] 05/18/21, gestational age 5 weeks 5 days Single intrauterine gestational sac is noted. Very small embryo is seen. Small yolks sac is also noted. Probable 2.4 x 1.7 x 2.7 fibroid is noted. Ovaries appear within normal limits for the patient's age. Measurements: [place]-rump length: 0.22 cm - 5 weeks 5 days Heart rate: 113 bpm Impression: 1. Single intrauterine gestation. Dates as noted above. 2. Small uterine fibroid with measurements as noted above. 3. No other complicating process is seen by ultrasound exam. Diagnostic code #2 I agree with preliminary report from francis, finalized on 09/17/20, 7:13 PM CDT, code 1
== END 2020-09-20 19:05 | disposition home or self-care (01) ==
LOC: JD.ED 15:46
DX: O99.891 Other specified diseases and conditions complicating pregnancy (principal); R10.9 Unspecified abdominal pain; Z3A.01 Less than 8 weeks gestation of pregnancy
CPT/HCPCS: 36415; 76817; 76817-26; 81001; 84144; 84702; 85025; 86900; 86901; 99283; 99284-25

== ENCOUNTER 2021-08-11 07:23 | Inpatient (IN) | payer BC ==
[~2021-08-11 07:23] MED LIST: Bupivacaine 0.25% 10 ML SDV ONE
[2021-08-11] MEDS ORDERED: Lidocaine 1% 50 ML MDV INJECT ONE (07:58)
[2021-08-11] MEDS ORDERED: Sodium Chloride 0.9% 10 ML Syringe FLUSH PRN (07:58)
[2021-08-11] MEDS ORDERED: Nalbuphine 10 MG/1 ML Vial IVPUSH PRN (07:58)
[2021-08-11] MEDS ORDERED: Ondansetron 4 MG/2 ML SDV IVPUSH PRN (07:58)
[2021-08-11] MEDS ORDERED: Oxytocin/Lactated Ringers 10 UNIT/1,000 ML BAG IV SCH ×2 (08:00)
[2021-08-11] MEDS ORDERED: Sodium Chloride 0.9% 10 ML Syringe FLUSH SCH (09:00)
[2021-08-11] MEDS: Lactated Ringers 1,000 ML IV SCH ×2 (09:05→11:29)
[2021-08-11] MEDS ORDERED: Diphtheria,Pertussis(Acell),Tetanus Vaccine 0.5 ML Syringe IM ONE ×2 (09:28→09:45)
[2021-08-11] MEDS ORDERED: 50% Dextrose in Water 50 ML Syringe IVPUSH PRN (10:52)
[2021-08-11] MEDS ORDERED: fentaNYL 100 MCG/2 ML SDV ONE (11:17)
[2021-08-11] MEDS ORDERED: Bupivacaine/fentaNYL/NS 100 ML Bag EPIDUR PRN (11:33)
[2021-08-11] MEDS ORDERED: fentaNYL 100 MCG/2 ML SDV EPIDUR PRN (11:33)
[2021-08-11] MEDS ORDERED: diphenhydrAMINE 50 MG/ML SDV IVPUSH PRN (11:33)
[2021-08-11] MEDS ORDERED: ePHEDrine 50 MG/ML SDV IVPUSH PRN (11:33)
[2021-08-11] MEDS ORDERED: Benzocaine/Menthol 20%-0.5% Spray 78 GM Cannister TOP PRN (18:33)
[2021-08-11] MEDS ORDERED: Witch Hazel Medicated Pads 40/Jar TOP PRN (18:33)
[2021-08-11] MEDS: Ibuprofen 600 MG Tab PO PRN ×2 (18:51→23:55)
[2021-08-11] MEDS: Acetaminophen 325 MG Tab PO PRN ×2 (20:08→23:57)
[2021-08-11] MEDS: Docusate Sodium 100 MG Cap PO SCH (20:09)
[2021-08-12] MEDS: Acetaminophen 325 MG Tab PO PRN ×2 (05:21→13:04)
[2021-08-12] MEDS: Ibuprofen 600 MG Tab PO PRN ×2 (05:21→13:04)
[2021-08-12] MEDS: Docusate Sodium 100 MG Cap PO SCH ×2 (06:52→14:36)
[2021-08-12] MEDS ORDERED: Prenatal Multivitamin with Calcium/Folic Acid/Iron Tab PO SCH (09:00)
[2021-08-12] MEDS ORDERED: Insulin Glargine,Human Rec. Analog 100 Units/ML 3 ML Pen SUBCUT SCH (09:00)
== END 2021-08-12 18:15 | disposition home or self-care (01) | DRG 542 ==
LOC: JD.OB 07:41 → OBSVTOIN 17:51 → JD.OB 18:00
PROVIDERS: ADMIT Obstetrics & Gynecology; ATTEND Obstetrics & Gynecology
PROC: 10D07Z6 Extraction of Products of Conception, Vacuum, Via Natural or Artificial Opening (ICD-10-PCS; principal; 2021-08-11)
PROC: 3E0R3BZ Introduction of Anesthetic Agent into Spinal Canal, Percutaneous Approach (ICD-10-PCS; 2021-08-11)
PROC: 0DQR0ZZ Repair Anal Sphincter, Open Approach (ICD-10-PCS; 2021-08-11)
PROC: 00HU33Z Insertion of Infusion Device into Spinal Canal, Percutaneous Approach (ICD-10-PCS; 2021-08-11)
DX: O34.211 Maternal care for low transverse scar from previous cesarean delivery (principal); Z37.0 Single live birth; O24.02 Pre-existing type 1 diabetes mellitus, in childbirth; E10.8 Type 1 diabetes mellitus with unspecified complications; O99.62 Diseases of the digestive system complicating childbirth; K21.9 Gastro-esophageal reflux disease without esophagitis; O76 Abnormality in fetal heart rate and rhythm complicating labor and delivery; O70.20 Third degree perineal laceration during delivery, unspecified; Z86.59 Personal history of other mental and behavioral disorders; Z3A.39 39 weeks gestation of pregnancy; Z87.59 Personal history of other complications of pregnancy, childbirth and the puerperium; Z79.899 Other long term (current) drug therapy; Z79.82 Long term (current) use of aspirin; Z56.0 Unemployment, unspecified
CPT/HCPCS: 36410; 36415; 51702; 59025; 59409; 80053; 81001; 82947; 85025; 86592; 86850; 86900; 86901; A9270-GY; J2590; J3010; J3490; J7120

== ENCOUNTER 2021-11-24 15:05 | Emergency (ER) | payer BC ==
[2021-11-24] MEDS ORDERED: Sodium Chloride 0.9% 10 ML Syringe FLUSH PRN (15:57)
[2021-11-24 17:18] LABS: ESTIMATED GFR 120 mL/min (>60)
[2021-11-24] MEDS ORDERED: Iopamidol 612 MG/ML 100 ML Bottle IVPUSH ONE (17:32)
[2021-11-24] MEDS: Sodium Chloride 0.9% 10 ML Syringe FLUSH PRN ×2 (17:56→18:23)
[2021-11-24] MEDS ORDERED: Sodium Chloride 0.9% 1,000 ML IV STA (19:16)
[2021-11-24] MEDS ORDERED: Magnesium Citrate Solution 296 ML Bottle PO ONE (20:36)
== END 2021-11-24 20:55 | disposition home or self-care (01) ==
LOC: JD.ED 15:05
DX: E86.0 Dehydration (principal); E10.65 Type 1 diabetes mellitus with hyperglycemia; K59.01 Slow transit constipation; Z79.4 Long term (current) use of insulin; Z79.899 Other long term (current) drug therapy
CPT/HCPCS: 36415; 74177; 80053; 81001; 82009; 83605; 85025; 86140; 96360; 99284; A9270; J3490; J7030; Q9967

== ENCOUNTER 2023-02-09 09:00 | Inpatient (IN) | payer BC ==
[2023-02-09] MEDS ORDERED: Sodium Chloride 0.9% 10 ML Syringe FLUSH PRN (09:13)
[2023-02-09] MEDS ORDERED: Lidocaine 1% 50 ML MDV INJECT ONE (09:13)
[2023-02-09] MEDS ORDERED: Nalbuphine HCl 10 MG/ 1ML Amp IVPUSH PRN (09:13)
[2023-02-09] MEDS ORDERED: Lactated Ringers 1,000 ML IV SCH (09:15)
[2023-02-09 09:22] LABS: BASOPHILS ABSOLUTE AUTO 0.1 K/mm3 (0.0-0.2); BASOPHILS PERCENT AUTO 0.7 % (0.0-1.0); EOSINOPHILS ABSOLUTE AUTO 0.1 K/mm3 (0.0-0.4); HEMATOCRIT 33.6 % (37.0-47.0); HEMOGLOBIN 11.5 gm/dl (12.0-16.0); IMMATURE GRAN ABSOLUTE AUTO 0.04 K/mm3 (0.00-0.05); IMMATURE GRAN PERCENT AUTO 0.6 % (0.0-0.4); LYMPHOCYTES ABSOLUTE AUTO 1.5 K/mm3 (1.0-4.8); LYMPHOCYTES PERCENT AUTO 21.6 % (24.0-44.0); MEAN CORPUSCULAR HEMOGLOBIN 30.1 pg (28.0-32.0); MEAN CORPUSCULAR HGB CONC 34.2 g/dl (32.0-36.0); MEAN PLATELET VOLUME 11.1 fl (9.4-12.3); MONOCYTES ABSOLUTE AUTO 0.5 K/mm3 (0.0-0.8); MONOCYTES PERCENT AUTO 7.4 % (0.0-8.0); NEUTROPHILS ABSOLUTE AUTO 4.9 K/mm3 (1.8-7.7); NEUTROPHILS PERCENT AUTO 68.7 % (41.0-71.0); PLATELET COUNT,PLT 218 K/mm3 (150-400); RED BLOOD CELL COUNT 3.82 M/mm3 (4.10-5.30); WHITE BLOOD CELL COUNT,WBC 7.12 K/mm3 (3.9-11.3)
[2023-02-09] MEDS ORDERED: Oxytocin/Lactated Ringers 10 UNIT/1,000 ML BAG IV ONE (09:30)
[2023-02-09] MEDS ORDERED: Oxytocin 10 Units/1 ML SDV ONE (09:37)
[2023-02-09] MEDS ORDERED: Hydrocortisone Acetate 25 MG Supp RECTAL PRN (11:23)
[2023-02-09] MEDS ORDERED: Magnesium Hydroxide 400 MG/5 ML Susp 30 ML Cup PO PRN (11:23)
[2023-02-09] MEDS ORDERED: Acetaminophen 325 MG Tab PO PRN (11:23)
[2023-02-09] MEDS ORDERED: Docusate Sodium 100 MG Cap PO PRN (11:23)
[2023-02-09] MEDS ORDERED: Witch Hazel Medicated Pads 40/Jar TOP PRN (11:23)
[2023-02-09] MEDS ORDERED: Benzocaine/Menthol 20%-0.5% Spray 78 GM Cannister TOP PRN (11:23)
[2023-02-09] MEDS ORDERED: Sodium Chloride 0.9% 10 ML Syringe FLUSH SCH (21:00)
[2023-02-09] MEDS: Ibuprofen 600 MG Tab PO PRN (22:52)
[2023-02-10] MEDS: Ibuprofen 600 MG Tab PO PRN (04:50)
[2023-02-10] MEDS ORDERED: Prenatal Multivitamin with Calcium/Folic Acid/Iron Tab PO SCH (09:00)
== END 2023-02-10 14:00 | disposition home or self-care (01) | DRG 560 ==
LOC: JD.OBCHECK 09:00 → JD.OB 09:07 → JD.OBCHECK 09:55
PROVIDERS: ADMIT Obstetrics & Gynecology; ATTEND Obstetrics & Gynecology
PROC: 10E0XZZ Delivery of Products of Conception, External Approach (ICD-10-PCS; principal; 2023-02-09)
PROC: 0KQM0ZZ Repair Perineum Muscle, Open Approach (ICD-10-PCS; 2023-02-09)
PROC: 3E033VJ Introduction of Other Hormone into Peripheral Vein, Percutaneous Approach (ICD-10-PCS; 2023-02-09)
DX: O42.02 Full-term premature rupture of membranes, onset of labor within 24 hours of rupture (principal); Z37.0 Single live birth; O24.02 Pre-existing type 1 diabetes mellitus, in childbirth; O70.1 Second degree perineal laceration during delivery; O34.219 Maternal care for unspecified type scar from previous cesarean delivery; Z3A.38 38 weeks gestation of pregnancy; Z79.4 Long term (current) use of insulin; Z79.899 Other long term (current) drug therapy; Z86.59 Personal history of other mental and behavioral disorders
CPT/HCPCS: 36415; 59025; 59409; 82947; 85025; 86592; A9270-GY; J2001; J2590

== ENCOUNTER 2023-04-24 06:00 | Day surgery (SDC) | payer BC ==
[~2023-04-24 06:00] MED LIST changes: -Bupivacaine 0.25% 10 ML SDV ONE; +Lactated Ringers 1,000 ML IV SCH; +Sodium Chloride 0.9% 10 ML Syringe FLUSH PRN; +Sodium Chloride 0.9% 10 ML Syringe FLUSH SCH
[2023-04-24] MEDS ORDERED: Bupivacaine 0.25% 10 ML SDV ONE (06:15)
[2023-04-24] MEDS ORDERED: Lidocaine 1% 10 ML MDV ONE (06:15)
[2023-04-24] MEDS ORDERED: ceFAZolin 1 GM Vial ONE (06:43)
[2023-04-24] MEDS ORDERED: Lactated Ringers 1,000 ML IV SCH (06:45)
== END 2023-04-24 07:32 | disposition home or self-care (01) ==
LOC: JD.SDS 06:00
PROVIDERS: ATTEND Orthopaedic Surgery
DX: M65.841 Other synovitis and tenosynovitis, right hand (principal); M65.332 Trigger finger, left middle finger; F32.A Depression, unspecified; G43.909 Migraine, unspecified, not intractable, without status migrainosus; E10.9 Type 1 diabetes mellitus without complications; Z79.899 Other long term (current) drug therapy; Z98.890 Other specified postprocedural states
CPT/HCPCS: 26055; 81025; J0690; J3490; J7120

== ENCOUNTER 2023-12-15 22:11 | Emergency (ER) | payer BC ==
[2023-12-16] MEDS: Cefdinir 300 MG Cap PO ONE (00:07)
[2023-12-16] MEDS: Ibuprofen 800 MG Tab PO ONE (00:07)
== END 2023-12-16 00:16 | disposition home or self-care (01) ==
LOC: JD.ED 22:11
DX: O91.22 Nonpurulent mastitis associated with the puerperium (principal); Z79.4 Long term (current) use of insulin; Z79.899 Other long term (current) drug therapy
CPT/HCPCS: 99283; A9270

== ENCOUNTER 2024-12-02 07:20 | Day surgery (SDC) | payer BC ==
[~2024-12-02 07:20] MED LIST changes: -Lactated Ringers 1,000 ML IV SCH; +Propofol 200 MG/20 ML SDV ONE
[2024-12-02] MEDS: Lactated Ringers 1,000 ML IV SCH (07:30)
[2024-12-02] MEDS ORDERED: Ondansetron 4 MG/2 ML SDV IVPUSH PRN (08:56)
[2024-12-02] MEDS ORDERED: fentaNYL 100 MCG/2 ML SDV IVPUSH PRN (08:56)
[2024-12-02] MEDS: Ketorolac 30 MG/ML SDV IVPUSH ONE (09:47)
== END 2024-12-02 10:15 | disposition home or self-care (01) ==
LOC: JD.SDS 07:20
PROVIDERS: ATTEND Orthopaedic Surgery
DX: M65.341 Trigger finger, right ring finger (principal); M65.332 Trigger finger, left middle finger; E10.9 Type 1 diabetes mellitus without complications; Z79.4 Long term (current) use of insulin; Z79.899 Other long term (current) drug therapy
CPT/HCPCS: 26055; J0665; J1885; J2003; J2704; J7120; 01810